=== PATIENT | male | born 1960 | race Caucasian/White ===

== ENCOUNTER 2017-03-16 12:18 | Emergency (ER) | payer MEDICAID, OTHER ==
[~2017-03-16 12:18] MED LIST: CARB25TA12 PO; CLON0.1T PO; COLA100C3 PO; CYPR4TAB PO; GABA300C5 PO; MULTTAB67 PO; OXYB5TAB10 PO; PYRI1TAB8 PO; TEMA30CA PO; ZOFR4TAB PO; [UNRECOGNIZED DRUG - CODE] PO
[2017-03-16 12:20] VITALS: BP 114/75; PULSE 85; RESP 15; TEMP 98.3; O2SAT 97
--- NOTE | 2017-03-16 12:30 | PD ---
Physical Exam Date Seen by Provider: Mar 16, 2017 Time Seen by Provider: 12:26 Narrative 57 yo male here for evaluation of low breathing and coughing. Most of history obtained from the mother and TIMBER BUCKER, he has dementia, Parkinson's, Gaucher's disease and is "slow" per but this is his usual. Per mother he was told might have pneumonia. Unclear if taking meds for it. Has had a fever on/off by palpation but not by thermometer. Coughing. Per TIMBER BUCKER shallow breathing. No chest pain. Cough is productive. Feeling weak. Patient is for the most part wheelchair bound. No sick contacts. No allergies to meds. Vitals stable at triage. Awaiting bed placement. Data Data Last Documented VS Vital Signs Date Time Temp Pulse Resp B/P (MAP) Pulse Ox O2 Delivery O2 Flow Rate FiO2 03/16/17 12:20 98.3 85 15 114/75 (88) 97 Orders Orders Electrocardiogram (03/16/17 12:30) Complete Blood Count With Diff (03/16/17 12:30) Comprehensive Metabolic Panel (03/16/17 12:30) Blood Culture (03/16/17 12:30) Influenzae A/B Antigen (03/16/17 12:30) Chest, Single Ap (03/16/17 12:30) Lactic Acid (03/16/17 12:30) MDM Medical Record Reviewed: Yes Supervised Visit with GURWINDER: Marlon Multani Mar 16, 2017 12:30
--- NOTE | 2017-03-16 13:14 | PD ---
HPI . cough x 2-3 days Chief Complaint: Respiratory Symptoms Time Seen by Provider: 12:59 Travel History International Travel<30 days: No Contact w/Intl Traveler<30days: No Traveled to known affect area: No History of Present Illness HPI 57 yr old male with Parkinson's and Gaucher's disease here with 2-3 days worth of cough. Patient's mom states that she was told that he will not survive until because he is going to come down with an infection. She became overly concerned when he started coughing 2-3 days ago and thinks he may have pneumonia. She thinks she may have had a fever. She never actually checked him with a thermometer and should she only used her hand. She reports increased phlegm production despite taking Mucinex. Patient was seen in triage and had protocol labs and CXR ordered. PFSH Past Medical History Anxiety: Yes Heart Rhythm Problems: Yes Cancer: No Cardiovascular Problems: Yes High Cholesterol: Yes Chest Pain: Yes (PT DENIES) Congestive Heart Failure: No Diminished Hearing: No Endocrine: No Gastrointestinal Disorders: Yes Hypertension: Yes Immune Disorder: No Musculoskeletal: Yes (PARKINSON'S) Neurologic: Yes (4 bulging disc and pinched nerve) Parkinson's Disease: Yes Psychiatric: Yes Reproductive: No Respiratory: No Thyroid Disease: No Past Surgical History Other Surgery: Yes Social History Alcohol Use: No Tobacco Use: No Substance Use: No Allergies-Medications (Allergen,Severity, Reaction): Coded Allergies: No Known Allergies (Unverified , 03/26/15) Reported Meds & Prescriptions Reported Meds & Active Scripts Active Reported Hydrocodone-Acetaminophen 10-325 mg Tab 1 Tab PO Q4H PRN Coconut Oil 1,000 Mg Cap Donepezil 10 Mg Tab 10 Mg PO HS Northera (Droxidopa) 200 Mg Cap PO BID Cyproheptadine (Cyproheptadine HCl) 4 Mg Tab 4 Mg PO TID Multiple Vitamin 1 Tab 1 Tab PO DAILY Clonidine (Clonidine HCl) 0.1 Mg Tab 0.1 Mg PO BID PRN Temazepam 30 Mg Cap 30 Mg PO HS PRN Pyridostigmine ER (Pyridostigmine [place]) 180 Mg Tab 180 Mg PO Q12HR Ditropan (Oxybutynin Chloride) 5 Mg Tab 5 Mg PO Q8HR Carbidopa-Levodopa 25-250 Mg Tab 1 Tab PO Q8HR Gabapentin 300 Mg Cap 300 Mg PO TID Review of Systems General / Constitutional: Positive: Fever (possible?) Eyes: No: Visual changes HENT: No: Headaches Cardiovascular: No: Chest Pain or Discomfort Respiratory: Positive: Cough, No: Shortness of Breath Gastrointestinal: No: Abdominal Pain Genitourinary: No: Dysuria Musculoskeletal: No: Pain Skin: No Rash Neurologic: No: Weakness Psychiatric: No: Depression Endocrine: No: Polydipsia Hematologic/Lymphatic: No: Easy Bruising Physical Exam Narrative GENERAL: AAO x 3, no acute distress, Well-nourished, well-developed patient. he does not appear ill SKIN: Warm and dry. No visible rashes or bruising. HEAD: Normocephalic and atraumatic. EYES: No scleral icterus. No injection or drainage. ENT: No nasal drainage noted. Mucous membranes pink. Airway patent. no oropharynx abnormality, TM normal b/l NECK: Supple, trachea midline. No JVD. CARDIOVASCULAR: Regular rate and rhythm without murmurs, gallops, or rubs. RESPIRATORY: breath sounds equally diminished bilaterally without wheezing, rhonchi or rales. GASTROINTESTINAL: Abdomen soft, non-tender, nondistended. EXTREMITIES: No cyanosis or edema. BACK: No obvious deformity. PSYCH: AAO x 3, Data Data Last Documented VS Vital Signs Date Time Temp Pulse Resp B/P (MAP) Pulse Ox O2 Delivery O2 Flow Rate FiO2 03/16/17 13:08 97 03/16/17 12:20 98.3 85 15 114/75 (88) Orders Orders Electrocardiogram (03/16/17 12:30) Complete Blood Count With Diff (03/16/17 12:30) Comprehensive Metabolic Panel (03/16/17 12:30) Blood Culture (03/16/17 12:30) Influenzae A/B Antigen (03/16/17 12:30) Lactic Acid (03/16/17 12:30) Chest, Pa & Lat (03/16/17 12:30) Labs Laboratory Tests Test 03/16/17 13:20 03/16/17 13:30 Blood Urea Nitrogen 25 MG/DL Creatinine 0.99 MG/DL Random Glucose 105 MG/DL Total Protein 8.2 GM/DL Albumin 3.8 GM/DL Calcium Level 9.4 MG/DL Alkaline Phosphatase 90 U/L Aspartate Amino Transf (AST/SGOT) 13 U/L Alanine Aminotransferase (ALT/SGPT) LESS THAN 6 U/L Total Bilirubin 0.6 MG/DL Sodium Level 141 MEQ/L Potassium Level 4.2 MEQ/L Chloride Level 105 MEQ/L Carbon Dioxide Level 31.8 MEQ/L Anion Gap 4 MEQ/L Estimat Glomerular Filtration Rate 78 ML/MIN White Blood Count 6.0 TH/MM3 Red Blood Count 5.09 MIL/MM3 Hemoglobin 15.2 GM/DL Hematocrit 44.4 % Mean Corpuscular Volume 87.2 FL Mean Corpuscular Hemoglobin 29.9 PG Mean Corpuscular Hemoglobin Concent 34.3 % Red Cell Distribution Width 13.0 % Platelet Count 155 TH/MM3 Mean Platelet Volume 10.4 FL Neutrophils (%) (Auto) 66.8 % Lymphocytes (%) (Auto) 26.0 % Monocytes (%) (Auto) 5.1 % Eosinophils (%) (Auto) 1.5 % Basophils (%) (Auto) 0.6 % Neutrophils # (Auto) 4.0 TH/MM3 Lymphocytes # (Auto) 1.6 TH/MM3 Monocytes # (Auto) 0.3 TH/MM3 Eosinophils # (Auto) 0.1 TH/MM3 Basophils # (Auto) 0.0 TH/MM3 CBC Comment DIFF FINAL Differential Comment Lactic Acid Level 1.3 mmol/L MDM Medical Decision Making Medical Screen Exam Complete: Yes Emergency Medical Condition: Yes Medical Record Reviewed: Yes Differential Diagnosis influenza, bronchitis, pneumonia Narrative Course 57 yr old male here with 2-3 days worth of cough. Labs and CXR ordered in triage. Patient looks well. I do not suspect pneumonia or any gross abnormalities. He could have viral syndrome/common cold vs. bronchitis. I have not yet heard him cough since I have seen him. Laboratory Tests Test 03/16/17 13:20 03/16/17 13:30 Blood Urea Nitrogen 25 MG/DL Creatinine 0.99 MG/DL Random Glucose 105 MG/DL Total Protein 8.2 GM/DL Albumin 3.8 GM/DL Calcium Level 9.4 MG/DL Alkaline Phosphatase 90 U/L Aspartate Amino Transf (AST/SGOT) 13 U/L Alanine Aminotransferase (ALT/SGPT) LESS THAN 6 U/L Total Bilirubin 0.6 MG/DL Sodium Level 141 MEQ/L Potassium Level 4.2 MEQ/L Chloride Level 105 MEQ/L Carbon Dioxide Level 31.8 MEQ/L Anion Gap 4 MEQ/L Estimat Glomerular Filtration Rate 78 ML/MIN White Blood Count 6.0 TH/MM3 Red Blood Count 5.09 MIL/MM3 Hemoglobin 15.2 GM/DL Hematocrit 44.4 % Mean Corpuscular Volume 87.2 FL Mean Corpuscular Hemoglobin 29.9 PG Mean Corpuscular Hemoglobin Concent 34.3 % Red Cell Distribution Width 13.0 % Platelet Count 155 TH/MM3 Mean Platelet Volume 10.4 FL Neutrophils (%) (Auto) 66.8 % Lymphocytes (%) (Auto) 26.0 % Monocytes (%) (Auto) 5.1 % Eosinophils (%) (Auto) 1.5 % Basophils (%) (Auto) 0.6 % Neutrophils # (Auto) 4.0 TH/MM3 Lymphocytes # (Auto) 1.6 TH/MM3 Monocytes # (Auto) 0.3 TH/MM3 Eosinophils # (Auto) 0.1 TH/MM3 Basophils # (Auto) 0.0 TH/MM3 CBC Comment DIFF FINAL Differential Comment Lactic Acid Level 1.3 mmol/L Last Impressions Chest X-Ray 03/16/17 1230 Signed Impressions: Service Date/Time: Thursday, March 16, 2017 12:56 - CONCLUSION: 1. No acute abnormality or significant interval change. Jimmie Mendoza MD BUN slightly high. Encouraged staying hydrated. Discussed f/u with PCP. Discussed viral syndrome and common cold. Patient verbalized understanding of instructions, questions were answered, and thanked me for their care. I advised them if their condition worsens, please return to the nearest emergency room for further care. Diagnosis Primary Impression: Cough Patient Instructions: General Instructions Additional Instructions: Rest. Stay hydrated. Follow up with your primary care provider. Return if your symptoms worsen. Disposition: 01 DISCHARGE HOME Condition: Stable Fouzia Abarca Mar 16, 2017 13:13
[2017-03-16] MEDS ORDERED: COCO1000 (13:18)
[2017-03-16] MEDS ORDERED: DONE10TA7 PO (13:18)
[2017-03-16] MEDS ORDERED: HYDR-3583 PO (13:18)
[2017-03-16 13:58] LABS: BASOPHIL % 0.6 % (0.0-2.0); EOSINOPHIL # 0.1 TH/MM3 (0-0.4); EOSINOPHIL % 1.5 % (0.0-4.0); HEMATOCRIT 44.4 % (39.0-51.0); HEMO FLAGS DIFF FINAL; LYMPHOCYTE # 1.6 TH/MM3 (1.0-4.8); MEAN CELL VOLUME 87.2 FL (80.0-100.0); MEAN CORPUSCULAR HEMOGLOBIN 29.9 PG (27.0-34.0); MEAN CORPUSCULAR HGB CONC 34.3 % (32.0-36.0); MONO % 5.1 % (0.0-8.0); NEUT % 66.8 % (16.0-70.0); PLATELET COUNT 155 TH/MM3 (150-450); RED BLOOD COUNT 5.09 MIL/MM3 (4.50-5.90)
--- NOTE | 2017-03-16 14:15 | RADRPT ---
EXAM DATE/TIME: 03/16/2017 12:56 [facility] COMPARISON: CHEST PA & LAT, December 01, 2013, 18:06. INDICATIONS : Cough MEDICAL HISTORY : Parkinson's disease, dysphagia, dementia SURGICAL HISTORY : None. ENCOUNTER: Initial ACUITY: 1 week PAIN SCORE: Non-responsive. LOCATION: Bilateral chest FINDINGS: PA and lateral views of the chest demonstrate the lungs to be symmetrically aerated without evidence of mass, infiltrate or effusion. Stable small calcified granulomas in the right lung. The cardiomedia stinal contours are unremarkable. Osseous structures are intact. CONCLUSION: 1. No acute abnormality or significant interval change. Jimmie Mendoza MD on March 16, 2017 at 14:11 Board Certified Radiologist. This report was verified electronically.
[2017-03-16 14:21] LABS: ANION GAP 4 MEQ/L (5-15); AST (GOT) 13 U/L (15-37); BICARBONATE 31.8 MEQ/L (21.0-32.0); BLOOD UREA NITROGEN 25 MG/DL (7-18); CHLORIDE 105 MEQ/L (98-107); GLOMERULAR FILTRATION RATE 78 ML/MIN (>89); POTASSIUM 4.2 MEQ/L (3.5-5.1); SODIUM (NA) 141 MEQ/L (136-145)
[2017-03-16 14:24] LABS: ALKALINE PHOSPHATASE 90 U/L (45-117); ALT (GPT) LESS THAN 6 U/L (12-78); TOTAL BILIRUBIN ADULT 0.6 MG/DL (0.2-1.0)
[2017-03-16 15:13] VITALS: BP 142/68; PULSE 69; RESP 16; O2SAT 96
--- NOTE | 2017-03-17 11:51 | EKG ---
Date Performed: 03/16/2017 Time Performed: 13:30:04 PTAGE: 57 years EKG: Sinus rhythm Mild baseline artifact with possible slight nonspecific ST changes NORMAL ECG PREVIOUS TRACING : 09/20/2014 06.01 No overt change from the prior tracing. DOCTOR: Chong Lewis Interpretating Date/Time 03/17/2017 11:49:59
== END 2017-03-16 15:36 | disposition home or self-care (01) ==
LOC: NEPD 12:18
DX: R05 Cough (principal); I10 Essential (primary) hypertension; G20 Parkinson's disease
CPT/HCPCS: 71020; 80053; 83605; 85025; 87804; 93005; 99285

== ENCOUNTER 2017-03-26 10:47 | Emergency (ER) | payer MEDICAID ==
[~2017-03-26] VITALS: Ht 175.3 cm; Wt 60.0 kg
[~2017-03-26 10:47] MED LIST changes: +COCO1000; -COLA100C3 PO; +DONE10TA7 PO; +HYDR-3583 PO; -ZOFR4TAB PO
[2017-03-26 10:56] VITALS: BP 163/100; PULSE 91; RESP 17; TEMP 98.6
[2017-03-26 11:32] VITALS: BP 167/103; PULSE 93; RESP 17; O2SAT 98
--- NOTE | 2017-03-26 11:33 | PD ---
HPI Chief Complaint: Abnormal Results Time Seen by Provider: 11:13 Travel History International Travel<30 days: No Contact w/Intl Traveler<30days: No Traveled to known affect area: No History of Present Illness HPI 57 year old male with a PMH of Parkinson's disease and Gaucher's disease presents to the emergency department sent by primary care's physician's office for evaluation of hypotension. According to the mother bedside, the patient's blood pressure at the primary care physician's office was 70/40. EMS was called. Since EMS arrived, blood pressure has been anywhere from 130 to 160 systolic. He has not had any hypotensive readings since EMS arrived. His mother is his caregiver. She states that he is at his baseline. He was seen here on March 16, 2017 for evaluation of a cough, possible pneumonia. Lab work and chest x-ray that time her reassuring. The patient himself denies any new complaints. No headache. No chest pain or shortness breath. No abdominal pain. No nausea, from being, diarrhea. His mother and the patient both state that he is at his baseline at this time. Blood pressure arrival to the emergency department is 163/100. PFSH Past Medical History Anxiety: Yes Heart Rhythm Problems: Yes (DENIES) Cancer: No Cardiovascular Problems: Yes High Cholesterol: Yes Chest Pain: Yes (PT DENIES) Congestive Heart Failure: No Diminished Hearing: No Endocrine: No Gastrointestinal Disorders: Yes Hypertension: Yes Immune Disorder: No Medical other: Yes (GAUNCHERS DX) Musculoskeletal: Yes (PARKINSON'S) Neurologic: Yes (4 bulging disc and pinched nerve) Parkinson's Disease: Yes Psychiatric: Yes Reproductive: No Respiratory: No Thyroid Disease: No Influenza Vaccination: No Past Surgical History Other Surgery: Yes Social History Alcohol Use: No Tobacco Use: No Substance Use: No Allergies-Medications (Allergen,Severity, Reaction): Coded Allergies: No Known Allergies (Unverified , 03/26/15) Reported Meds & Prescriptions Reported Meds & Active Scripts Active Reported Hydrocodone-Acetaminophen 10-325 mg Tab 1 Tab PO Q4H PRN Coconut Oil 1,000 Mg Cap Donepezil 10 Mg Tab 10 Mg PO HS Northera (Droxidopa) 200 Mg Cap PO BID Cyproheptadine (Cyproheptadine HCl) 4 Mg Tab 4 Mg PO TID Multiple Vitamin 1 Tab 1 Tab PO DAILY Clonidine (Clonidine HCl) 0.1 Mg Tab 0.1 Mg PO BID PRN Temazepam 30 Mg Cap 30 Mg PO HS PRN Pyridostigmine ER (Pyridostigmine [place]) 180 Mg Tab 180 Mg PO Q12HR Ditropan (Oxybutynin Chloride) 5 Mg Tab 5 Mg PO Q8HR Carbidopa-Levodopa 25-250 Mg Tab 1 Tab PO Q8HR Gabapentin 300 Mg Cap 300 Mg PO TID Review of Systems Except as stated in HPI: all other systems reviewed are Neg Physical Exam Narrative GENERAL: Well-nourished, well-developed male patient, afebrile. SKIN: Focused skin assessment warm/dry. HEAD: Normocephalic. Atraumatic. ENT: Mucosa pink and moist. No erythema or exudates. No uvular edema. No uvular , palatal, or tonsillar deviation. Airway patent. Nasal turbinates appear normal without nasal blood, purulent drainage or septal hematoma. Bilateral tympanic membranes are clear without erythema or perforation. EYES: No scleral icterus. No injection or drainage. NECK: Supple, trachea midline. No JVD or lymphadenopathy. CARDIOVASCULAR: Regular rate and rhythm without murmurs, gallops, or rubs. RESPIRATORY: Breath sounds equal bilaterally. No accessory muscle use. Lungs sounds are clear to auscultation. GASTROINTESTINAL: Abdomen soft, non-tender, nondistended. MUSCULOSKELETAL: No cyanosis, or edema. BACK: Nontender without obvious deformity. No CVA tenderness. Data Data Last Documented VS Vital Signs Date Time Temp Pulse Resp B/P (MAP) Pulse Ox O2 Delivery O2 Flow Rate FiO2 03/26/17 11:32 93 17 167/103 (124) 98 Room Air 03/26/17 10:56 98.6 Orders Orders Chest, Single Ap (03/26/17 ) [facility] Medical Decision Making Medical Screen Exam Complete: Yes Emergency Medical Condition: Yes Medical Record Reviewed: Yes Interpretation(s) Last Impressions Chest X-Ray 03/26/17 0000 Signed Impressions: Service Date/Time: , March 26, 2017 11:45 - CONCLUSION: No acute disease. There is no evidence of pneumonia. Musa Ellington MD Differential Diagnosis Medical clearance versus hypotension versus hypertension versus pneumonia versus cough Narrative Course 57-year-old male presents to the emergency department sent by primary care physician's office for evaluation of hypotension. Since EMS arrived and since being in the emergency department, the patient has not been hypotensive. His mother and him both state he has at baseline. His mother does complain of a cough, that is worse at night. I have not heard the patient cough at this time. Patient did reassuring workup in March 16, 2017. Chest x-ray is ordered and pending. Chest x-ray shows no acute disease. There is no evidence of pneumonia. Upon reevaluation, blood pressure is 140/103. The patient continues to feel well and has no complaints. I discussed the case with attending physician, Dr. Senior, who presents complaining and disposition. Patient will be discharged to follow-up with his primary care physician. He is to return here for any acute worsening of symptoms. The patient and his mother verbalize agreement and understanding. The patient was discharged in stable condition with instructions, including return instructions and follow up instructions. Diagnosis Primary Impression: Cough Referrals: Primary Care Physician 2 days Patient Instructions: Acute Cough (ED), General Instructions Additional Instructions: Follow-up with your primary care physician. Return to the emergency department for any acute worsening of symptoms. Med/Other Pt SpecificInfo: No Change to Meds Disposition: 01 DISCHARGE HOME Condition: Stable Glory Oquendo EUNICE Mar 26, 2017 11:30
--- NOTE | 2017-03-26 11:55 | RADRPT ---
EXAM DATE/TIME: 03/26/2017 11:45 [facility] COMPARISON: CHEST PA & LAT, December 01, 2013, 18:06. INDICATIONS : Cough. MEDICAL HISTORY : Parkinson's, Gauches disease SURGICAL HISTORY : None. ENCOUNTER: Initial ACUITY: 1 day PAIN SCORE: Non-responsive. LOCATION: Bilateral chest FINDINGS: A single view of the chest demonstrates the lungs to be symmetrically aerated without evidence of mas s, infiltrate or effusion. There calcified granulomas in the right lung. The cardiomediastinal contou rs are unremarkable. Osseous structures are intact. CONCLUSION: No acute disease. There is no evidence of pneumonia. Musa Ellington MD on March 26, 2017 at 11:49 Board Certified Radiologist. This report was verified electronically.
[2017-03-26 12:14] VITALS: BP 140/99
== END 2017-03-26 13:15 | disposition home or self-care (01) ==
LOC: NEPC 10:47
DX: R05 Cough (principal); G20 Parkinson's disease; E75.22 Gaucher disease
CPT/HCPCS: 71010; 99283

== ENCOUNTER 2018-04-07 16:45 | Observation (INO) ==
--- NOTE | 2018-04-07 17:49 | ED ---
HPI General Chief complaint: Nausea/Vomiting/Diarrhea Stated complaint: Diarreha x 4 days,dehydration per pt, Time Seen by Provider: 04/07/18 17:22 Source: patient Limitations: physical limitation History of Present Illness HPI Narrative: Patient is a 58-year-old male with history of Parkinson's disease , dementia, bulging disc, presents the emergency room for evaluation of dehydration. As per patient's mother/ caregiver, patient has been having diarrhea for the past 4 days. Mom reports that overall, patient has had decreased appetite. Reports concerns that he is dehydrated and needs IV fluids. At baseline, patient is nonverbal with his dementia. Mom reports that he does feel warm at nighttime, no documented fevers. Patient with no nausea or vomiting, no sick contacts at home. MD complaint: Reports nausea, vomiting and diarrhea Onset (ago): day(s) (4 days) Related Data Home Medications Medication Instructions Recorded Confirmed aspirin [Aspir-Low] 81 mg PO DAILY 01/29/18 04/07/18 donepezil [Aricept] 10 mg PO HS 01/29/18 04/07/18 oxybutynin chloride 5 mg PO TID 01/29/18 04/07/18 temazepam [Restoril] 30 mg PO HS 01/29/18 04/07/18 carbidopa-levodopa [Sinemet] 1 tab PO QID 02/02/18 04/07/18 gabapentin 300 mg PO BID 02/02/18 04/07/18 gabapentin 600 mg PO HS 02/02/18 04/07/18 pyridostigmine bromide 180 mg PO BID 02/02/18 04/07/18 Allergies Allergy/AdvReac Type Severity Reaction Status Date / Time No Known Allergies Allergy Verified 04/07/18 17:00 Review of Systems ROS: all other systems reviewed are negative [facility] Medical History Medical History Degenerative disc disease (Acute) Dementia (Acute) Parkinsonism (Acute) Surgical History Surgical History No history of previous surgery (Acute) Family History Family History Other Coronary artery disease Diabetes mellitus Social History Social History Substance History: No History of Abuse Second Hand Smoke Exposure: No Smoking Status: Former smoker Tobacco Type: Cigarettes How Often Do You Have a Drink Containing Alcohol: Never Recent Travel in [facility] within the Last 8 Weeks: No Recent Out of Country Travel within the Last 8 Weeks: No Immunization History Tetanus Immunization: Unsure Exam Narrative Exam Narrative: GENERAL: Mild distress, patient nonverbal SKIN: Focused skin assessment warm/dry. HEAD: Atraumatic. Normocephalic. EYES: Pupils equal and round. No scleral icterus. No injection or drainage. ENT: No nasal bleeding or discharge. Mucous membranes pink and moist. NECK: Trachea midline. No JVD. CARDIOVASCULAR: Regular rate and rhythm. No murmur appreciated. RESPIRATORY: No accessory muscle use. Clear to auscultation. Breath sounds equal bilaterally. GASTROINTESTINAL: Abdomen soft, non-tender, nondistended. Hepatic and splenic margins not palpable. MUSCULOSKELETAL: No obvious deformities. No clubbing. No cyanosis. No edema. Course Consultations Consultation #1: discussed with and accepted by Dr Martinez for admission Initial Documented Vital Signs Temperature 98.8 F 04/07/18 16:52 Pulse Rate 91 H 04/07/18 16:52 Respiratory Rate 18 04/07/18 16:52 Blood Pressure 71/48 L 04/07/18 16:52 Pulse Oximetry 91 L 04/07/18 16:52 Last Documented Vital Signs Temperature 98.8 F 04/07/18 16:52 Pulse Rate 86 04/07/18 19:24 Respiratory Rate 18 04/07/18 16:52 Blood Pressure 148/90 H 04/07/18 19:24 Pulse Oximetry 98 04/07/18 19:24 Sign Out Sign Out Data: Patient Sign Out occurred on 04/07/18 at 19:18. Patient's care was discussed, and care was transferred from Araceli Marie to Eufemia Banks MD. Sign Out Comment: Patient signed out at change of shift, patient pending lab work as well as disposition. I do anticipate the patient will be admitted to the hospital for treatment of pneumonia Last updated by Araceli Marie at 04/07/18 19:00 Post-Handoff Eval: Accepted in transfer of care from Dr. Marie Medical Decision Making [facility] Narrative Medical decision making narrative: During the course of the patients emergency department visit, the patients history, examination, and differential diagnosis were reviewed with the patient. The patient was placed on a hospital monitor with oximetry and frequent blood pressure monitoring. The patient had an IV access obtained and blood work sent for analysis. The patient was initially provided with 2 liters of IVF as well as IV zofran CT the abdomen pelvis shows that he has a right lower lobe pneumonia, patient has been pancultured, he has been given a dose of azithromycin as well as Rocephin. lactic acid as well as blood cultures were ordered- [facility] reports that patient has been coughing discussed with and accepted by Dr Martinez for admission Medical Screen Exam Complete: Yes Emergency Medical Condition: Yes Differential Diagnosis Differential Diagnosis: Colitis, C. difficile colitis, electrolyte abnormality, appendicitis, diverticulitis, gastritis, gastroenteritis Medical Records Medical records reviewed: Yes I reviewed the patient's medical records. Lab Data Lab results reviewed: Yes I reviewed the patient's lab results. Result diagrams: 04/07/18 17:30 04/07/18 17:30 Lab Results 04/07/18 04/07/18 04/07/18 Range/Units 17:30 17:30 17:30 WBC 6.5 (4.0-11.0) th/mm3 RBC 4.56 (4.50-5.90) mil/mm3 Hgb 13.1 (13.0-17.0) gm/dL Hct 39.8 (39.0-51.0) % MCV 87.3 (80.0-100.0) fL MCH 28.8 (27.0-34.0) pg MCHC 33.0 (32.0-36.0) % RDW 14.1 (11.6-17.2) % Plt Count 132 L (150-450) th/mm3 MPV 12.1 H (7.0-11.0) fL Neut % (Auto) 70.1 H (16.0-70.0) % Lymph % (Auto) 21.8 (9.0-44.0) % [place] % (Auto) 6.9 (0.0-8.0) % Eos % (Auto) 0.8 (0.0-4.0) % Baso % (Auto) 0.4 (0.0-2.0) % Neut # (Auto) 4.6 (1.8-7.7) th/mm3 Lymph # (Auto) 1.4 (1.0-4.8) th/mm3 [place] # (Auto) 0.5 (0.0-0.9) th/mm3 Eos # (Auto) 0.1 (0.0-0.4) th/mm3 Baso # (Auto) 0.0 (0.0-0.2) th/mm3 WBC Differential . Differential Comment Auto diff final PT 10.9 (9.8-11.6) sec INR 1.1 Ratio APTT 27.4 (24.3-30.1) sec Sodium 141 (136-145) meq/L Potassium 3.3 L (3.5-5.1) meq/L Chloride 108 H (98-107) meq/L Carbon Dioxide 27.7 (21.0-32.0) meq/L Anion Gap 5 (5-15) meq/L BUN 25 H (7-18) mg/dL Creatinine 0.83 (0.60-1.30) mg/dL Estimated GFR Greater than 89 (>89) mL/min Random Glucose 103 (74-106) mg/dL Lactic Acid (0.4-2.0) mmol/L Calcium 8.8 (8.5-10.1) mg/dL Total Bilirubin 1.0 (0.2-1.0) mg/dL AST 18 (15-37) U/L ALT 10 L (12-78) U/L Alkaline Phosphatase 86 (45-117) U/L Total Creatine Kinase 61 (39-308) U/L Total Protein 7.8 (6.4-8.2) g/dL Albumin 3.5 (3.4-5.0) g/dL Stl C.difficile DNA Amp (Negative) St C. diff Tox Epid 027 (Negative) 04/07/18 04/07/18 Range/Units 19:00 20:42 WBC (4.0-11.0) th/mm3 RBC (4.50-5.90) mil/mm3 Hgb (13.0-17.0) gm/dL Hct (39.0-51.0) % MCV (80.0-100.0) fL MCH (27.0-34.0) pg MCHC (32.0-36.0) % RDW (11.6-17.2) % Plt Count (150-450) th/mm3 MPV (7.0-11.0) fL Neut % (Auto) (16.0-70.0) % Lymph % (Auto) (9.0-44.0) % [place] % (Auto) (0.0-8.0) % Eos % (Auto) (0.0-4.0) % Baso % (Auto) (0.0-2.0) % Neut # (Auto) (1.8-7.7) th/mm3 Lymph # (Auto) (1.0-4.8) th/mm3 [place] # (Auto) (0.0-0.9) th/mm3 Eos # (Auto) (0.0-0.4) th/mm3 Baso # (Auto) (0.0-0.2) th/mm3 WBC Differential Differential Comment PT (9.8-11.6) sec INR Ratio APTT (24.3-30.1) sec Sodium (136-145) meq/L Potassium (3.5-5.1) meq/L Chloride (98-107) meq/L Carbon Dioxide (21.0-32.0) meq/L Anion Gap (5-15) meq/L BUN (7-18) mg/dL Creatinine (0.60-1.30) mg/dL Estimated GFR (>89) mL/min Random Glucose (74-106) mg/dL Lactic Acid 1.1 (0.4-2.0) mmol/L Calcium (8.5-10.1) mg/dL Total Bilirubin (0.2-1.0) mg/dL AST (15-37) U/L ALT (12-78) U/L Alkaline Phosphatase (45-117) U/L Total Creatine Kinase (39-308) U/L Total Protein (6.4-8.2) g/dL Albumin (3.4-5.0) g/dL Stl C.difficile DNA Amp Negative (Negative) St C. diff Tox Epid 027 Negative (Negative) Imaging Data Radiologist's impression: Abdomen/Pelvis CT 04/07/18 17:44 CONCLUSION: 1. Mild basilar groundglass opacity and early consolidative infiltrate at the right lung base. 2. Severe constipation. No acute findings within the abdomen and pelvis. Chest X-Ray 04/07/18 18:46 CONCLUSION: Negative examination. Discharge Plan Discharge Disposition Patient Disposition: 30 Still Patient Discharge Condition Condition: Stable Discharge Details Diagnosis: Pneumonia, Constipation Physicians Team ED Provider: Eufemia Banks Primary Care Provider: UNKNOWN, Attending Provider: Araceli Martinez Discharge Interventions Interventions: Vital Signs Last Done: 04/07/18 19:24 Status ED Status: Admitted Observation Patient
[2018-04-07] MEDS: Sod Chloride 0.9% Inj 1,000 ML IV.SIG SCH ×2 (18:05→19:34)
--- NOTE | 2018-04-07 18:38 | CT ---
EXAM DATE: 04/07/2018 5:48 PM EDT AGE/SEX: 58 years / Male INDICATIONS: Diarrhea with decubitus for four days CLINICAL DATA: This is the patient's initial encounter. Patient reports that signs and symptoms have been present for 4 - 6 days and indicates a pain score of Nonresponsive. MEDICAL/SURGICAL HISTORY: Dementia. Parkinson's disease. None. RADIATION DOSE: 6.24 CTDI (mGy) COMPARISON: [facility] [place]ELVIS [place]AST, 12/09/2011. . TECHNIQUE: Multiple contiguous axial images were obtained through the abdomen. Images were obtained using multiple row detector helical technique. Using automated exposure control and adjustment of the mA and/or kV according to patient size, radiation dose was kept as low as reasonably achievable to o btain optimal diagnostic quality images. DICOM format image data is available electronically for rev iew and comparison. FINDINGS: Lung bases demonstrate suspected subsegmental atelectasis with mild groundglass and early consolidati ve infiltrate at the right lung base. Calcified granuloma right middle lobe. No acute findings in the liver, spleen, adrenals, kidneys or pancreas. No calcified gallstones. Sever e constipation with rectum distended to 9 cm in diameter. No free air or free fluid. No bowel obstruction. No acute bony abnormalities. Mild canal stenosis in the lower lumbar spine. CONCLUSION: 1. Mild basilar groundglass opacity and early consolidative infiltrate at the right lung base. 2. Severe constipation. No acute findings within the abdomen and pelvis. Electronically signed by: Jose D Zhang MD 04/07/2018 6:37 PM EDT
[2018-04-07 18:48] LABS: Baso % (Auto) 0.4 % (0.0-2.0); Eos # (Auto) 0.1 th/mm3 (0.0-0.4); Eos % (Auto) 0.8 % (0.0-4.0); Hematocrit 39.8 % (39.0-51.0); Hemoglobin 13.1 gm/dL (13.0-17.0); Lymph # (Auto) 1.4 th/mm3 (1.0-4.8); Lymph % (Auto) 21.8 % (9.0-44.0); Mean Corpuscular Hemoglobin 28.8 pg (27.0-34.0); Mean Corpuscular Volume 87.3 fL (80.0-100.0); Mean Platelet Volume 12.1 fL (7.0-11.0); Mono # (Auto) 0.5 th/mm3 (0.0-0.9); Mono % (Auto) 6.9 % (0.0-8.0); Neut # (Auto) 4.6 th/mm3 (1.8-7.7); Neut % (Auto) 70.1 % (16.0-70.0); Platelet Count 132 th/mm3 (150-450); Red Blood Count 4.56 mil/mm3 (4.50-5.90); Red Cell Distribution Width 14.1 % (11.6-17.2); White Blood Count 6.5 th/mm3 (4.0-11.0)
[2018-04-07 18:55] LABS: Activated Partial Thrombo Time 27.4 sec (24.3-30.1); INR 1.1 Ratio; Prothrombin Time 10.9 sec (9.8-11.6)
[2018-04-07] MEDS ORDERED: Azithromycin Inj 500 MG in Sodium Chlor 0.9% Inj 250 ML IV.SIG ONE (18:57)
[2018-04-07 19:03] LABS: Albumin 3.5 g/dL (3.4-5.0); Anion Gap 5 meq/L (5-15); Aspartate Aminotransferase 18 U/L (15-37); Blood Urea Nitrogen 25 mg/dL (7-18); Calcium 8.8 mg/dL (8.5-10.1); Carbon Dioxide 27.7 meq/L (21.0-32.0); Chloride 108 meq/L (98-107); Glomerular Filtration Rate Greater Than 89 mL/min (>89); Glucose,Random 103 mg/dL (74-106); Potassium 3.3 meq/L (3.5-5.1); Sodium 141 meq/L (136-145)
[2018-04-07 19:04] LABS: Alanine Aminotransferase 10 U/L (12-78)
[2018-04-07 19:07] LABS: Alkaline Phosphatase 86 U/L (45-117); Total Protein 7.8 g/dL (6.4-8.2)
[2018-04-07 19:15] LABS: Creatine Kinase 61 U/L (39-308)
--- NOTE | 2018-04-07 19:30 | XR ---
EXAM DATE: 04/07/2018 6:46 PM EDT AGE/SEX: 58 years / Male INDICATIONS: Cough and shortness of breath. CLINICAL DATA: This is the patient's initial encounter. Patient reports that signs and symptoms have been present for 2 days and indicates a pain score of Nonresponsive. MEDICAL/SURGICAL HISTORY: . Parkinson's disease, Dysphagia, dementia. None. COMPAR[place]: [facility] [place] 2[place] PA&LAT[place]/2018. . FINDINGS: A single AP view of the chest demonstrates the lungs to be symmetrically aerated without evidence of mass, infiltrate or effusion. The cardiomediastinal contours are unremarkable. Osseous structures a re intact. Calcified granuloma right lung base. CONCLUSION: Negative examination. Electronically signed by: Judah Carmona MD 04/07/2018 7:29 PM EDT
[2018-04-07] MEDS ORDERED: Mineral Oil Enema 118 ML Bottle RECTAL ONE (21:45)
[2018-04-07] MEDS ORDERED: Acetaminophen 325 MG Tablet PO PRN (21:47)
[2018-04-07] MEDS ORDERED: Bisacodyl 10 MG Supp RECTAL PRN (21:47)
--- NOTE | 2018-04-07 21:58 | P.HP ---
History of Present Illness Service: [facility] Primary Care Physician: UNKNOWN History of Present Illness: 58-year-old male with a past medical history significant for Parkinson's disease , dementia and neuropathy presents to the emergency department for the evaluation of 4 days of diarrhea. His mother and his caregiver are bedside and report that he started to have rectal skin breakdown secondary to the diarrhea. CT of the abdomen/pelvis reveals severe constipation. The patient has also had a nonproductive cough times [address] He is also had subjective fever/chills. No chest pain or shortness of breath. No abdominal pain. No nausea/vomiting. No lateralizing signs/symptoms. Inpatient Certification: I certify that the inpatient services were ordered in accordance with Medicare regulations governing the order. This includes certification that hospital inpatient services are reasonable and necessary and in the case of services not specified as inpatient-only under 42 CFR 419.22(n), that they are appropriately provided as inpatient services in accordance to with the 2-midnight benchmark under 43 CFR 412.3(e) Review of Systems All other systems reviewed negative except as stated in HPI PMFSH - History History Provided By: Patient - Medical History Medical History: Medical History (Last Reviewed 04/07/18 @ 21:51 by Araceli Martinez MD) Degenerative disc disease Dementia Parkinsonism - Surgical History Surgical History: Surgical History (Last Updated 04/07/18 @ 21:51 by Araceli Martinez MD) No history of previous surgery - Family History Family History: Family History (Last Updated 04/07/18 @ 21:52 by Araceli Martinez MD) Other Coronary artery disease Diabetes mellitus - Tobacco History Second Hand Smoke Exposure: No Tobacco Use In Past 30 Days: No Smoking Status: Former smoker Tobacco Type: Cigarettes - Alcohol History How Often Do You Have a Drink Containing Alcohol: Never - Substance Use History Substance History: No History of Abuse - Travel History Recent Travel in the [place] Within the Last 8 Weeks: No Recent Travel Out of the Country Within the Last 8 Weeks: No - Immunization History Tetanus Immunization: Unsure Medications and Allergies Active Medications: Active Medications Sodium Chloride (Ns Inj) 1,000 mls @ 0 mls/hr IV.SIG BOLUS GEORGE Stop: 04/08/18 17:31 Last Infusion: 04/07/18 20:45 Dose: Infused Sodium Chloride (Ns Flush) 2 ml IV.FLUSH PRN PRN PRN Reason: FLUSH AFTER USING IV ACCESS Last Admin: 04/07/18 20:52 Dose: 2 ml Allergies Allergy/AdvReac Type Severity Reaction Status Date / Time No Known Allergies Allergy Verified 04/07/18 17:00 Home Medications Medication Instructions Recorded Confirmed Type aspirin [Aspir-Low] 81 mg PO DAILY 01/29/18 04/07/18 History donepezil [Aricept] 10 mg PO HS 01/29/18 04/07/18 History oxybutynin chloride 5 mg PO TID 01/29/18 04/07/18 History temazepam [Restoril] 30 mg PO HS 01/29/18 04/07/18 History carbidopa-levodopa [Sinemet] 1 tab PO QID 02/02/18 04/07/18 History gabapentin 300 mg PO BID 02/02/18 04/07/18 History gabapentin 600 mg PO HS 02/02/18 04/07/18 History pyridostigmine bromide 180 mg PO BID 02/02/18 04/07/18 History Exam Vital signs: Vital Signs 04/07/18 16:52 04/07/18 17:07 04/07/18 19:23 Temperature 98.8 F Pulse Rate 91 H 86 Respiratory Rate 18 Blood Pressure 71/48 L 121/80 Pulse Oximetry 91 L 04/07/18 19:24 Temperature Pulse Rate 86 Respiratory Rate Blood Pressure 148/90 H Pulse Oximetry 98 Intake & Output 04/07/18 04/07/18 04/08/18 06:59 18:59 06:59 Intake Total 2099 Balance 2099 Weight 56.699 kg Intake: IV 2099 NS Inj 1,000 ML @ Wide Open IV. 1999 SIG BOLUS GEORGE Rx#:[id number] Rocephin Inj 1,000 MG In NS Inj 100 / 100 100 ML @ 200 mls/hr IV.SIG ONCE ONE Rx#:[id number] Narrative: Gen.: No acute distress Head: Normocephalic. Atraumatic. EENT: Pupils equal round and reactive to light. Nose without drainage. Airway intact. Throat without injection. Cardiovascular: Regular rate and rhythm. No murmurs, rubs or gallops. Respiratory: Lungs clear to auscultation bilaterally. No wheezes or rhonchi. Abdomen: Soft, nontender, nondistended. No peritoneal signs. Musculoskeletal: No gross deformities. No edema. Skin: No obvious rashes or erythema. Neuro: Sensory and motor grossly intact. Cranial nerves II through XII grossly intact. Results - Labs CBC & Chem 7: 04/07/18 17:30 04/07/18 17:30 Labs: Laboratory Results - last 24 hr 04/07/18 04/07/18 04/07/18 17:30 17:30 17:30 WBC 6.5 RBC 4.56 Hgb 13.1 Hct 39.8 MCV 87.3 MCH 28.8 MCHC 33.0 RDW 14.1 Plt Count 132 L MPV 12.1 H Neut % (Auto) 70.1 H Lymph % (Auto) 21.8 [place] % (Auto) 6.9 Eos % (Auto) 0.8 Baso % (Auto) 0.4 Neut # (Auto) 4.6 Lymph # (Auto) 1.4 [place] # (Auto) 0.5 Eos # (Auto) 0.1 Baso # (Auto) 0.0 WBC Differential . Differential Comment Auto diff final PT 10.9 INR 1.1 APTT 27.4 Sodium 141 Potassium 3.3 L Chloride 108 H Carbon Dioxide 27.7 Anion Gap 5 BUN 25 H Creatinine 0.83 Estimated GFR Greater than 89 Random Glucose 103 Lactic Acid Calcium 8.8 Total Bilirubin 1.0 AST 18 ALT 10 L Alkaline Phosphatase 86 Total Creatine Kinase 61 Total Protein 7.8 Albumin 3.5 04/07/18 19:00 WBC RBC Hgb Hct MCV MCH MCHC RDW Plt Count MPV Neut % (Auto) Lymph % (Auto) [place] % (Auto) Eos % (Auto) Baso % (Auto) Neut # (Auto) Lymph # (Auto) [place] # (Auto) Eos # (Auto) Baso # (Auto) WBC Differential Differential Comment PT INR APTT Sodium Potassium Chloride Carbon Dioxide Anion Gap BUN Creatinine Estimated GFR Random Glucose Lactic Acid 1.1 Calcium Total Bilirubin AST ALT Alkaline Phosphatase Total Creatine Kinase Total Protein Albumin - Imaging Impressions Abdomen/Pelvis CT 04/07/18 17:44 CONCLUSION: 1. Mild basilar groundglass opacity and early consolidative infiltrate at the right lung base. 2. Severe constipation. No acute findings within the abdomen and pelvis. Chest X-Ray 04/07/18 18:46 CONCLUSION: Negative examination. Caprini VTE Risk Assessment Caprini VTE Risk Assessment: No/Low Risk (score <= 1) Caprini Risk Assessment Model: Point Value = 1 Point Value = 2 Point Value = 3 Point Value = 5 Age 41-60 Minor surgery BMI > 25 kg/m2 Swollen legs Varicose veins or History of unexplained or recurrent spontaneous Oral contraceptives or hormone replacement Sepsis (< 1 month) Serious lung disease, including pneumonia (< 1 month) Abnormal pulmonary function Acute myocardial infarction Congestive heart failure (< 1 month) History of inflammatory bowel disease Medical patient at bed rest Age 61-74 Arthroscopic surgery Major open surgery (> 45 min) Laparoscopic surgery (> 45 min) Malignancy Confined to bed (> 72 hours) Immobilizing plaster cast Central venous access Age >= 75 History of VTE Family history of VTE Factor V Leiden Prothrombin [id number] Lupus anticoagulant Anticardiolipin antibodies Elevated serum homocysteine Heparin-induced thrombocytopenia Other congenital or acquired thrombophilia Stroke (< 1 month) Elective arthroplasty Hip, pelvis, or leg fracture Acute spinal cord injury (< 1 month) Prophylaxis Regimen: Total Risk Factor Score Risk Level Prophylaxis Regimen 0-1 Low Early ambulation 2 Moderate Order ONE of the following: *Sequential Compression Device (SCD) *Heparin 5000 units SQ BID 3-4 Higher Order ONE of the following medications: *Heparin 5000 units SQ TID *Enoxaparin/Lovenox 40 mg SQ daily (WT < 150 kg, CrCl > 30 mL/min) *Enoxaparin/Lovenox 30 mg SQ daily (WT < 150 kg, CrCl > 10-29 mL/min) *Enoxaparin/Lovenox 30 mg SQ BID (WT < 150 kg, CrCl > 30 mL/min) AND/OR *Sequential Compression Device (SCD) 5 or more Highest Order ONE of the following medications: *Heparin 5000 units SQ TID (Preferred with Epidurals) *Enoxaparin/Lovenox 40 mg SQ daily (WT < 150 kg, CrCl > 30 mL/min) *Enoxaparin/Lovenox 30 mg SQ daily (WT < 150 kg, CrCl > 10-29 mL/min) *Enoxaparin/Lovenox 30 mg SQ BID (WT < 150 kg, CrCl > 30 mL/min) AND *Sequential Compression Device (SCD) Assessment and Plan - Plan Assessment/plan: 1. Community-acquired pneumonia CT of the abdomen/pelvis significant for significant for mild basilar groundglass opacity and early consolidative infiltrate in the right lung base Rocephin/azithromycin Duo nebs 2. Severe constipation Fleets mineral oil enema x1 Dulcolax, lactulose as needed 3. Parkinson's disease Continue carbidopa/levodopa 4. Neuropathy Continue gabapentin FEN Regular diet Electrolytes: Status post p.o. repletion of potassium, monitor BMP
[2018-04-08 09:01] LABS: Baso % (Auto) 0.4 % (0.0-2.0); Eos % (Auto) 0.4 % (0.0-4.0); Hematocrit 39.7 % (39.0-51.0); Hemoglobin 13.5 gm/dL (13.0-17.0); Lymph # (Auto) 0.8 th/mm3 (1.0-4.8); Lymph % (Auto) 13.8 % (9.0-44.0); Mean Corpuscular HGB Conc 33.9 % (32.0-36.0); Mean Corpuscular Hemoglobin 29.2 pg (27.0-34.0); Mean Corpuscular Volume 86.1 fL (80.0-100.0); Mean Platelet Volume 10.6 fL (7.0-11.0); Mono # (Auto) 0.3 th/mm3 (0.0-0.9); Mono % (Auto) 5.3 % (0.0-8.0); Neut # (Auto) 4.9 th/mm3 (1.8-7.7); Neut % (Auto) 80.1 % (16.0-70.0); Platelet Count 124 th/mm3 (150-450); Red Blood Count 4.61 mil/mm3 (4.50-5.90); Red Cell Distribution Width 13.6 % (11.6-17.2); White Blood Count 6.2 th/mm3 (4.0-11.0)
[2018-04-08] MEDS: Senna/Docusate Sodium 8.6/50 MG Tablet PO SCH ×2 (09:06→21:00)
[2018-04-08] MEDS: Gabapentin 300 MG Capsule PO SCH ×2 (09:06→20:56)
[2018-04-08 09:43] LABS: Anion Gap 5 meq/L (5-15); Blood Urea Nitrogen 13 mg/dL (7-18); Calcium 8.4 mg/dL (8.5-10.1); Carbon Dioxide 26.8 meq/L (21.0-32.0); Chloride 109 meq/L (98-107); Glomerular Filtration Rate Greater Than 89 mL/min (>89); Glucose,Random 88 mg/dL (74-106); Potassium 3.8 meq/L (3.5-5.1); Sodium 141 meq/L (136-145)
--- NOTE | 2018-04-08 15:02 | P.PNIM ---
Subjective Interval history: Patient sitting upright in bed with staff assisting the patient while he attempts to eat. He does not appear to be in any acute distress. Physical Exam Vital signs: Vital Signs 04/07/18 16:52 04/07/18 17:07 04/07/18 19:23 Temperature 98.8 F Pulse Rate 91 H 86 Respiratory Rate 18 Blood Pressure 71/48 L 121/80 Pulse Oximetry 91 L 04/07/18 19:24 04/08/18 00:00 04/08/18 04:00 Temperature 98.0 F 98.3 F Pulse Rate 86 75 88 Respiratory Rate 17 17 Blood Pressure 148/90 H 178/97 H 157/92 H Pulse Oximetry 98 95 95 04/08/18 08:00 04/08/18 12:00 Temperature 98.1 F 97.9 F Pulse Rate 87 87 Respiratory Rate 16 16 Blood Pressure 160/98 H 113/74 Pulse Oximetry 98 96 Intake & Output 04/07/18 04/08/18 04/08/18 18:59 06:59 18:59 Intake Total 2350 / 2350 Balance 2350 / 2350 Weight 56.699 kg 56.699 kg Intake: IV 2350 / 2350 Azithromycin Inj 500 MG In NS 250 / 250 Inj 250 ML @ 250 mls/hr IV.SIG ONCE ONE Rx#:[id number] NS Inj 1,000 ML @ Wide Open IV. 1999 / 1999 SIG BOLUS GEORGE Rx#:[id number] Rocephin Inj 1,000 MG In NS Inj 100 / 100 100 ML @ 200 mls/hr IV.SIG ONCE ONE Rx#:[id number] Other: # Incontinent Voids 2 Weight On Admission 56.699 kg Narrative: General patient in no acute distress, he does not respond clearly to any questions or commands. HEENT extraocular movements are intact, clear oropharyngeal mucosa, no JVD Cardiovascular S1-S2 audible Respiratory clear to auscultation bilaterally Abdomen soft, nontender, nondistended, normal bowel sounds Extremities no edema 2+ distal pulses in bilateral upper and lower extremities Neuro patient does move all 4 extremities sensation is he continuously is moving his bilateral lower extremities. He is not following any specific commands. Full neurological examination is difficult to assess given the patient's current medical state. Results - Labs CBC & Chem 7: 04/08/18 08:09 04/08/18 08:09 Laboratory Results - last 24 hr 10/17/18 10/17/18 10/17/18 17:30 17:30 17:30 WBC 6.5 RBC 4.56 Hgb 13.1 Hct 39.8 MCV 87.3 MCH 28.8 MCHC 33.0 RDW 14.1 Plt Count 132 L MPV 12.1 H Neut % (Auto) 70.1 H Lymph % (Auto) 21.8 [place] % (Auto) 6.9 Eos % (Auto) 0.8 Baso % (Auto) 0.4 Neut # (Auto) 4.6 Lymph # (Auto) 1.4 [place] # (Auto) 0.5 Eos # (Auto) 0.1 Baso # (Auto) 0.0 WBC Differential . Differential Comment Auto diff final PT 10.9 INR 1.1 APTT 27.4 Sodium 141 Potassium 3.3 L Chloride 108 H Carbon Dioxide 27.7 Anion Gap 5 BUN 25 H Creatinine 0.83 Estimated GFR Greater than 89 Random Glucose 103 Lactic Acid Calcium 8.8 Total Bilirubin 1.0 AST 18 ALT 10 L Alkaline Phosphatase 86 Total Creatine Kinase 61 Total Protein 7.8 Albumin 3.5 Stl C.difficile DNA Amp St C. diff Tox Epid 027 04/07/18 04/07/18 04/08/18 19:00 20:42 08:09 WBC 6.2 RBC 4.61 Hgb 13.5 Hct 39.7 MCV 86.1 MCH 29.2 MCHC 33.9 RDW 13.6 Plt Count 124 L MPV 10.6 Neut % (Auto) 80.1 H Lymph % (Auto) 13.8 [place] % (Auto) 5.3 Eos % (Auto) 0.4 Baso % (Auto) 0.4 Neut # (Auto) 4.9 Lymph # (Auto) 0.8 L [place] # (Auto) 0.3 Eos # (Auto) 0.0 Baso # (Auto) 0.0 WBC Differential . Differential Comment Auto diff final PT INR APTT Sodium Potassium Chloride Carbon Dioxide Anion Gap BUN Creatinine Estimated GFR Random Glucose Lactic Acid 1.1 Calcium Total Bilirubin AST ALT Alkaline Phosphatase Total Creatine Kinase Total Protein Albumin Stl C.difficile DNA Amp Negative St C. diff Tox Epid 027 Negative 04/08/18 08:09 WBC RBC Hgb Hct MCV MCH MCHC RDW Plt Count MPV Neut % (Auto) Lymph % (Auto) [place] % (Auto) Eos % (Auto) Baso % (Auto) Neut # (Auto) Lymph # (Auto) [place] # (Auto) Eos # (Auto) Baso # (Auto) WBC Differential Differential Comment PT INR APTT Sodium 141 Potassium 3.8 Chloride 109 H Carbon Dioxide 26.8 Anion Gap 5 BUN 13 Creatinine 0.58 L Estimated GFR Greater than 89 Random Glucose 88 Lactic Acid Calcium 8.4 L Total Bilirubin AST ALT Alkaline Phosphatase Total Creatine Kinase Total Protein Albumin Stl C.difficile DNA Amp St C. diff Tox Epid 027 Microbiology 04/07/18 19:00 Blood - Peripheral Aerobic Blood Culture - Preliminary No growth in 1 day 04/07/18 19:00 Blood - Peripheral Anaerobic Blood Culture - Preliminary No growth in 1 day 04/07/18 18:55 Blood - Peripheral Aerobic Blood Culture - Preliminary No growth in 1 day 04/07/18 18:55 Blood - Peripheral Anaerobic Blood Culture - Preliminary No growth in 1 day 04/07/18 20:42 Stool Stool for WBCs - Final Rare WBC's - Imaging Impressions Abdomen/Pelvis CT 04/07/18 17:44 CONCLUSION: 1. Mild basilar groundglass opacity and early consolidative infiltrate at the right lung base. 2. Severe constipation. No acute findings within the abdomen and pelvis. Chest X-Ray 04/07/18 18:46 CONCLUSION: Negative examination. Assessment and Plan - Plan Patient is a 58-year-old male with a diagnosis of Parkinson's disease, dementia. He was admitted to [place] after having constipation and was found to have a right lower lobe pneumonia. The patient's mother takes care of him at home with the help of nurses. 1. Right lower lobe community acquired pneumonia Imaging shows a right lower lobe pneumonia. Patient is currently on room air without any shortness of breath. He has been afebrile over the past 24 hours. Continue current medication regimen. Cultures will be followed up. 2. Severe constipation Patient is currently on stool softeners. He received a Fleet enema yesterday. According to the nurse that the patient had couple of bowel movements today. 3. Dysphagia Was evaluated the patient while he was eating today. It appears that the patient does have some difficulty tolerating a p.o. diet. According to the patient's mother who is blind he is able to tolerate a p.o. diet while at home. We will get a swallow evaluation today. He will be kept n.p.o. for now. D5W with NS IV fluids started today. 3. Parkinson's disease Continue carbidopa/levodopa 4. Neuropathy Continue gabapentin SCDs for dvt prophylaxis
[2018-04-08] MEDS: Dextrose 5%/NaCl 0.9% Inj 1,000 ML IV.CONT SCH (15:51)
[2018-04-08] MEDS ORDERED: Azithromycin Inj 500 MG in Sodium Chlor 0.9% Inj 250 ML IV.SIG SCH (21:00)
[2018-04-08] MEDS ORDERED: Temazepam 15 MG Capsule PO SCH (21:00)
[2018-04-08] MEDS: PYRIDOSTIGMINE 180 MG PO SCH (21:00)
[2018-04-09] MEDS: Dextrose 5%/NaCl 0.9% Inj 1,000 ML IV.CONT SCH ×2 (05:18→16:38)
[2018-04-09] MEDS: Gabapentin 300 MG Capsule PO SCH (09:32)
[2018-04-09] MEDS: Senna/Docusate Sodium 8.6/50 MG Tablet PO SCH (09:33)
[2018-04-09] MEDS: PYRIDOSTIGMINE 180 MG PO SCH (09:41)
[2018-04-09 12:34] VITALS: RESP 16
[2018-04-09 16:10] VITALS: BP 141/91; PULSE 91; TEMP 98.3; O2SAT 99
--- NOTE | 2018-04-09 18:01 | P.DS ---
Date of admission: 04/07/18 21:47 Primary care physician: UNKNOWN Brief History from admission: 58-year-old male with a past medical history significant for Parkinson's disease , dementia and neuropathy presents to the emergency department for the evaluation of 4 days of diarrhea. His mother and his caregiver are bedside and report that he started to have rectal skin breakdown secondary to the diarrhea. CT of the abdomen/pelvis reveals severe constipation. The patient has also had a nonproductive cough times [address] He is also had subjective fever/chills. DS: Medications - Discharge Medications Prescriptions: azithromycin 250 mg PO DAILY #3 tab DS: Summary Hospital Course: Patient is a 58-year-old male with a diagnosis of Parkinson's disease, dementia. He was admitted to [place] after having constipation and was found to have a right lower lobe pneumonia. The patient at baseline is able to get out of bed to his wheelchair with assistance however is unable to ambulate given his current condition. His mother is also legally blind and has the assistance of nurses 8 hours a day in order to take care of her son. He was brought into the emergency department because of constipation. 1. Right lower lobe community acquired pneumonia When the patient arrived imaging was done which showed a right lower lobe pneumonia. The patient did not have, fevers, or an elevated WBC count. He was started on treatment for the pneumonia and has received 2 days of IV antibiotics while in house. He will be discharged with 3 more days of p.o. antibiotics. Patient was not producing sputum in order to collect a sputum culture. He is currently on room air without any complaints of shortness of breath and he will be discharged home today. 2. Severe constipation The patient was having severe constipation while he was at home. The mother said she had checked his rectum and could feel hard stool. CT scan of the abdomen pelvis showed severe constipation and a right lower lobe infiltrate. He was given a Fleet enema and started on stool softeners. The patient had multiple bowel movements while he was in-house. He is now having regular bowel movements. As per the patient's mother he has Colace at home which he can continue to take. If they notice that the patient is having constipation in the future he may need another stool softener to be added to his medication regimen. The patient should follow-up with his primary care doctor within the next week for evaluation. 3. Dysphagia The patient was noted to have some difficulty while eating his food after initial evaluation. He was kept n.p.o. and a swallow evaluation was done. Recommendations are to continue the patient on a pured diet with honey thickened liquids. He seems to be tolerating his diet well. 3. Parkinson's disease Continue carbidopa/levodopa 4. Neuropathy Continue gabapentin - Time Spent with Patient Total time spent providing and/or coordinating discharge services: Greater than 30 minutes - Quality: VTE Deep Vein Thrombosis/Pulmonary Embolism Present on Admission: No Exam Vital signs: Vital Signs 04/08/18 19:24 04/08/18 23:34 04/09/18 04:00 Temperature 98.6 F 98.6 F 98.5 F Pulse Rate 95 H 84 78 Respiratory Rate 18 16 16 Blood Pressure 164/110 H 117/76 122/74 Pulse Oximetry 100 98 04/09/18 08:00 04/09/18 12:00 04/09/18 16:00 Temperature 97.9 F 97.8 F 98.3 F Pulse Rate 76 94 H 91 H Respiratory Rate 12 16 16 Blood Pressure 173/101 H 120/84 141/91 H Pulse Oximetry 99 98 99 Intake & Output 04/08/18 04/09/18 04/09/18 18:59 06:59 18:59 Intake Total 1350 / 1350 1000 / 1000 Balance 1350 / 1350 1000 / 1000 Intake: IV 1350 / 1350 1000 / 1000 D5W/Normal Saline Inj 1,000 ML 1000 / 1000 1000 / 1000 @ 84 mls/hr IV.CONT .[id number] GEORGE Rx#:[id number] Azithromycin Inj 500 MG In NS 250 / 250 Inj 250 ML @ 250 mls/hr IV.SIG Q24H GEORGE Rx#:[id number] Rocephin Inj 1,000 MG In NS Inj 100 / 100 100 ML @ 200 mls/hr IV.SIG Q24H GEORGE Rx#:[id number] Other: # Incontinent Voids 4 Date of Last Bowel Movement 04/08/18 04/08/18 04/08/18 # Incontinent Bowel Movements 2 Narrative: General patient in no acute distress. He is responding appropriately to my questions today. HEENT extraocular movements are intact, clear oropharyngeal mucosa, no JVD Cardiovascular S1-S2 audible Respiratory clear to auscultation bilaterally Abdomen soft, nontender, nondistended, normal bowel sounds Extremities no edema 2+ distal pulses in bilateral upper and lower extremities Neuro patient does move all 4 extremities sensation is he continuously is moving his bilateral lower extremities. Today the patient is responding to my questions and commands appropriately. He appears more awake and is happy today. Results Procedures completed during hospitalization: none Labs on day of discharge: Preliminary micro results at discharge 04/07/18 19:00 Aerobic Blood Culture - Preliminary Blood - Peripheral No growth in 2 days Anaerobic Blood Culture - Preliminary No growth in 2 days 04/07/18 18:55 Aerobic Blood Culture - Preliminary Blood - Peripheral No growth in 2 days Anaerobic Blood Culture - Preliminary No growth in 2 days - Impressions ITS Impressions Abdomen/Pelvis CT 04/07/18 17:44 CONCLUSION: 1. Mild basilar groundglass opacity and early consolidative infiltrate at the right lung base. 2. Severe constipation. No acute findings within the abdomen and pelvis. Chest X-Ray 04/07/18 18:46 CONCLUSION: Negative examination. Discharge Plan - Discharge Disposition Patient Disposition: 01 Discharge Home - Discharge Condition Condition: Stable - Discharge Order Discharge Orders: Discharge Order (Routine); Ordered 04/09/18 Ordered By: Ezequiel Payne - Physicians Team Primary Care Provider: UNKNOWN, Attending Provider: Ezequiel Payne
== END 2018-04-09 18:45 | disposition home or self-care (01) ==
LOC: NEPC 16:45 → INTOOBSV 20:33 → NEDA 20:33 → NEPGCP 23:23
PROVIDERS: ADMIT Hospitalist; ATTEND Hospitalist

== ENCOUNTER 2018-04-13 12:22 | Observation (INO) ==
[2018-04-13] MEDS ORDERED: Sod Chloride 0.9% Inj 1,000 ML IV.SIG ONE (15:20)
--- NOTE | 2018-04-13 15:30 | ED ---
HPI General Chief complaint: Nausea/Vomiting/Diarrhea Stated complaint: Diharrea/Blockage Complaint Time Seen by Provider: 04/13/18 15:02 Source: patient Mode of arrival: ambulatory Limitations: no limitations History of Present Illness HPI Narrative: 58-year-old male with a history of Parkinson's disease, dementia presents to the emergency department with his mother for evaluation of persistent diarrhea that is been going on for approximately 1 week. Mother provides most of the history. She is unable to quantify the diarrhea but states it has been watery and malodorous. Patient denies hematochezia or melena. Mother states he has felt warm but denies actual fever. Patient denies abdominal pain and is unable to give me any further information regarding his diarrhea or abdominal symptoms. She states patient has had decreased food intake because of presumed nausea. Denies vomiting. Mother states that she is concerned about the pneumonia and low potassium that he had while in the hospital as well. She states that he wakes up sometimes "gasping for air". Patient denies shortness of breath and does not indicate chest pain at this time. Mother says she has a [employer] RN that comes to the house 7 days/week and is with the patient 7 hours a day. MD complaint: Reports diarrhea; Denies nausea and vomiting Onset (ago): day(s) Description of Vomiting: watery Description of Diarrhea: watery Associated Abdominal Pain: No Related Data Home Medications Medication Instructions Recorded Confirmed aspirin [Aspir-Low] 81 mg PO DAILY 01/29/18 04/13/18 donepezil [Aricept] 10 mg PO HS 01/29/18 04/13/18 oxybutynin chloride 5 mg PO TID 01/29/18 04/13/18 temazepam [Restoril] 30 mg PO HS 01/29/18 04/13/18 carbidopa-levodopa [Sinemet] 1 tab PO QID 02/02/18 04/13/18 gabapentin 300 mg PO BID 02/02/18 04/13/18 gabapentin 600 mg PO HS 02/02/18 04/13/18 pyridostigmine bromide 180 mg PO BID 02/02/18 04/13/18 clonidine HCl 0.1 mg PO PRN PRN 04/08/18 04/13/18 cyproheptadine 4 mg PO BID 04/08/18 04/13/18 droxidopa 400 mg PO BID 04/08/18 04/13/18 sertraline 25 mg PO DAILY 04/08/18 04/13/18 Allergies Allergy/AdvReac Type Severity Reaction Status Date / Time No Known Allergies Allergy Verified 04/13/18 13:25 Review of Systems ROS: all other systems reviewed are negative [facility] Medical History Medical History Degenerative disc disease (Acute) Dementia (Acute) Parkinsonism (Acute) Social History Social History Substance History: No History of Abuse Second Hand Smoke Exposure: No Smoking Status: Former smoker Tobacco Type: Cigarettes How Often Do You Have a Drink Containing Alcohol: Never Recent Travel in [facility] within the Last 8 Weeks: No Recent Out of Country Travel within the Last 8 Weeks: No Immunization History Tetanus Immunization: <5 Years Exam Narrative Exam Narrative: GENERAL: Well-developed, cachectic appearing in no acute distress SKIN: Focused skin assessment warm/dry. HEAD: Atraumatic. Normocephalic. EYES: Pupils equal and round. No scleral icterus. No injection or drainage. ENT: No nasal bleeding or discharge. Mucous membranes pink and moist. NECK: Trachea midline. No JVD. No lymphadenopathy CARDIOVASCULAR: Regular rate and rhythm. No murmur appreciated. RESPIRATORY: No accessory muscle use. Clear to auscultation. Breath sounds equal bilaterally. GASTROINTESTINAL: Abdomen semirigid, non-tender, nondistended. Hepatic and splenic margins not palpable. MUSCULOSKELETAL: No obvious deformities. No clubbing. No cyanosis. No edema. No tenderness palpation of the calves NEUROLOGICAL: Awake and alert. No obvious cranial nerve deficits. Motor grossly within normal limits. Normal speech. PSYCHIATRIC: Appropriate mood and affect; insight and judgment normal. Course Initial Documented Vital Signs Temperature 97.3 F L 04/13/18 13:13 Pulse Rate 97 H 04/13/18 13:13 Respiratory Rate 16 04/13/18 13:13 Blood Pressure 76/53 L 04/13/18 13:13 Pulse Oximetry 93 L 04/13/18 13:13 Last Documented Vital Signs Temperature 97.3 F L 04/13/18 13:13 Pulse Rate 86 04/13/18 19:24 Respiratory Rate 18 04/13/18 19:24 Blood Pressure 169/101 H 04/13/18 18:22 Pulse Oximetry 97 04/13/18 19:24 Medical Decision Making MDM Narrative Medical decision making narrative: 58-year-old male presents to the emergency department with his mother with concerns of continuous diarrhea that started approximately 7 days ago. Patient was admitted and treated for pneumonia at that time. He was also treated for severe constipation. She states that his last antibiotic was a couple of days ago. I reviewed the EMR it appears that patient was here and treated for an incidental finding of pneumonia and severe constipation. He was discharged with antibiotics and she states his last dose was a couple of days ago. C. difficile was negative here in the hospital. Vital signs are stable. Labs are stable. Mild hypokalemia at 3.3. 20meq potassium administered. Chest x-ray were performed as mother was concerned about a persistent pneumonia. Chest x-ray is clear at this time. CT abdomen and pelvis performed as patient has had persistent diarrhea. He does not indicate pain however, there is concern for an obstruction based off of history and physical. I reviewed this imaging study with my attending. I intended on attempting disimpaction however, because of his history of hemorrhoids and severity of the impaction, recommended admit for observation with GI consult. I spoke with Dr Driscoll who agreed to the admission. Requests I call GI/ colorectal for evaluation. Colorectal unavailable, will consult GI. I spoke with Dr. Perry who recommended manual disimpaction, then 3-5 enemas , then 1 gallon golytely and consult for GI. States he would see them in the morning. I again discussed this with Dr. Brandon, my attending who recommended against the disimpaction while in the ED. Will defer to admitting team and GI for further treatment and evaluation. Medical Screen Exam Complete: Yes Emergency Medical Condition: Yes Differential Diagnosis Differential Diagnosis: Functional diarrhea, bowel obstruction, perforated viscus, antibiotic induced diarrhea Lab Data Result diagrams: 04/13/18 15:41 04/13/18 15:41 Lab Results 04/13/18 04/13/18 Range/Units 15:41 15:41 WBC 6.1 (4.0-11.0) th/mm3 RBC 4.89 (4.50-5.90) mil/mm3 Hgb 14.5 (13.0-17.0) gm/dL Hct 42.5 (39.0-51.0) % MCV 86.9 (80.0-100.0) fL MCH 29.6 (27.0-34.0) pg MCHC 34.1 (32.0-36.0) % RDW 13.9 (11.6-17.2) % Plt Count 141 L (150-450) th/mm3 MPV 10.5 (7.0-11.0) fL Neut % (Auto) 75.3 H (16.0-70.0) % Lymph % (Auto) 16.5 (9.0-44.0) % [place] % (Auto) 7.1 (0.0-8.0) % Eos % (Auto) 0.7 (0.0-4.0) % Baso % (Auto) 0.4 (0.0-2.0) % Neut # (Auto) 4.6 (1.8-7.7) th/mm3 Lymph # (Auto) 1.0 (1.0-4.8) th/mm3 [place] # (Auto) 0.4 (0.0-0.9) th/mm3 Eos # (Auto) 0.0 (0.0-0.4) th/mm3 Baso # (Auto) 0.0 (0.0-0.2) th/mm3 WBC Differential . Differential Comment Auto diff final Sodium 140 (136-145) meq/L Potassium 3.3 L (3.5-5.1) meq/L Chloride 102 (98-107) meq/L Carbon Dioxide 28.2 (21.0-32.0) meq/L Anion Gap 10 (5-15) meq/L BUN 19 H (7-18) mg/dL Creatinine 1.13 (0.60-1.30) mg/dL Estimated GFR 67 L (>89) mL/min Random Glucose 99 (74-106) mg/dL Calcium 8.9 (8.5-10.1) mg/dL Magnesium 2.2 (1.5-2.5) mg/dL Total Bilirubin 1.1 H (0.2-1.0) mg/dL AST 22 (15-37) U/L ALT 12 (12-78) U/L Alkaline Phosphatase 81 (45-117) U/L Total Protein 8.0 (6.4-8.2) g/dL Albumin 3.8 (3.4-5.0) g/dL Lipase 99 (73-393) U/L TSH 1.500 (0.358-3.740) uIU/mL Imaging Data Radiologist's impression: Chest X-Ray 04/13/18 15:20 CONCLUSION: No acute cardiopulmonary disease. Abdomen/Pelvis CT 04/13/18 16:25 CONCLUSION: Rectal fecal impaction. Discharge Plan Discharge Disposition Patient Disposition: 30 Still Patient Discharge Condition Condition: Stable Discharge Details Diagnosis: Fecal impaction in rectum Physicians Team ED Provider: Thanh Brandon ED Midlevel Provider: Raven Rios Primary Care Provider: UNKNOWN, Attending Provider: Errol Driscoll Status ED Status: Admitted Observation Patient
--- NOTE | 2018-04-13 16:12 | XR ---
EXAM DATE: 04/13/2018 3:20 PM EDT AGE/SEX: 58 years / Male INDICATIONS: . Short of breath. CLINICAL DATA: This is the patient's initial encounter. Patient reports that signs and symptoms have been present for 3 days and indicates a pain score of 2/10. MEDICAL/SURGICAL HISTORY: . Dementia. Parkinson's disease. . [place] [facility] [place]. . FINDINGS: PA and lateral views of the chest demonstrate the lungs to be symmetrically aerated without evidence of mass, infiltrate or effusion. Calcified granulomas. The cardiomediastinal contours are unremarkabl e. Osseous structures are intact. CONCLUSION: No acute cardiopulmonary disease. Electronically signed by: Dennis Holley MD 04/13/2018 4:11 PM EDT
[2018-04-13 16:13] LABS: Baso % (Auto) 0.4 % (0.0-2.0); Eos % (Auto) 0.7 % (0.0-4.0); Hematocrit 42.5 % (39.0-51.0); Hemoglobin 14.5 gm/dL (13.0-17.0); Lymph % (Auto) 16.5 % (9.0-44.0); Mean Corpuscular HGB Conc 34.1 % (32.0-36.0); Mean Corpuscular Hemoglobin 29.6 pg (27.0-34.0); Mean Corpuscular Volume 86.9 fL (80.0-100.0); Mean Platelet Volume 10.5 fL (7.0-11.0); Mono # (Auto) 0.4 th/mm3 (0.0-0.9); Mono % (Auto) 7.1 % (0.0-8.0); Neut # (Auto) 4.6 th/mm3 (1.8-7.7); Neut % (Auto) 75.3 % (16.0-70.0); Platelet Count 141 th/mm3 (150-450); Red Blood Count 4.89 mil/mm3 (4.50-5.90); Red Cell Distribution Width 13.9 % (11.6-17.2); White Blood Count 6.1 th/mm3 (4.0-11.0)
[2018-04-13 16:26] LABS: Albumin 3.8 g/dL (3.4-5.0); Aspartate Aminotransferase 22 U/L (15-37); Blood Urea Nitrogen 19 mg/dL (7-18); Calcium 8.9 mg/dL (8.5-10.1); Carbon Dioxide 28.2 meq/L (21.0-32.0); Glomerular Filtration Rate 67 mL/min (>89); Glucose,Random 99 mg/dL (74-106); Lipase 99 U/L (73-393); Magnesium 2.2 mg/dL (1.5-2.5)
[2018-04-13 16:52] LABS: Alanine Aminotransferase 12 U/L (12-78); Alkaline Phosphatase 81 U/L (45-117); Anion Gap 10 meq/L (5-15); Chloride 102 meq/L (98-107); Potassium 3.3 meq/L (3.5-5.1); Sodium 140 meq/L (136-145)
--- NOTE | 2018-04-13 17:50 | CT ---
EXAM DATE: 04/13/2018 4:32 PM EDT AGE/SEX: 58 years / Male INDICATIONS: Diarrhea CLINICAL DATA: This is the patient's initial encounter. Patient reports that signs and symptoms have been present for 1 day and indicates a pain score of 0/10. MEDICAL/SURGICAL HISTORY: Dementia. Parkinson's disease. None. ORAL CONTRAST: No oral contrast ingested. RADIATION DOSE: 646 CTDI (mGy) COMPARISON: [facility] – [place] ABDOMEN & PELVIS W/O CONTRAST, 04/07/2018. . TECHNIQUE: Multiple contiguous axial images were obtained through the abdomen and pelvis following b olus infusion of 70 ml Omnipaque 350 (iohexol) nonionic water-soluble contrast as a single exam dos e. No oral contrast ingested. Using automated exposure control and adjustment of the mA and/or kV ac cording to patient size, radiation dose was kept as low as reasonably achievable to obtain optimal di agnostic quality images. DICOM format image data is available electronically for review and comparis on. FINDINGS: Lower Lungs: Mild basilar atelectasis. Liver: The liver has a homogeneous density without space-occupying lesion. There is no dilation of th e biliary tree. Spleen: Homogeneous density without enlargement. Pancreas: Unremarkable without mass or calcification. Kidneys: Left renal cysts. No suspicious mass, stone or hydronephrosis. Adrenal Glands: Unremarkable. Aorta: The aorta and proximal iliac vessels are grossly unremarkable without aneurysmal dilation. Bowel/Mesentery: The colon is notable for abundant stool throughout with rectal fecal impaction. The small bowel is nondilated. Abdominal Wall: Intact. Retroperitoneum: No evidence of adenopathy in the retrocrural, para-aortic, or deep pelvic regions. Bladder: Contours are smooth. Reproductive Organs: No abnormal masses or calcifications seen. Inguinal: The inguinal region is unremarkable without evidence of adenopathy. Bony Structures: Unremarkable. CONCLUSION: Rectal fecal impaction. Electronically signed by: Anson Andrade MD 04/13/2018 5:49 PM EDT
--- NOTE | 2018-04-13 20:40 | P.HP ---
History of Present Illness Service: [facility] Primary Care Physician: UNKNOWN History of Present Illness: 58-year-old male with a past medical history significant for Parkinson's disease , dementia, neuropathy and hypertension presents to the emergency department for evaluation of persistent diarrhea. The patient was seen on 04/07/18 where he was admitted for an incidental finding of pneumonia on CT. His mother, who is his primary caregiver, reports that since discharge the patient's diarrhea has not improved. She states he has felt warm to the touch several times but has not actually taken his temperature. Patient is sitting in bed comfortably at this time. CT of the abdomen/pelvis shows abundant stool throughout with rectal fecal impaction. The patient denies any chest pain or shortness of breath. He denies abdominal pain. No lateralizing signs/symptoms. Inpatient Certification: I certify that the inpatient services were ordered in accordance with Medicare regulations governing the order. This includes certification that hospital inpatient services are reasonable and necessary and in the case of services not specified as inpatient-only under 42 CFR 419.22(n), that they are appropriately provided as inpatient services in accordance to with the 2-midnight benchmark under 43 CFR 412.3(e) Estimated Total Length of Stay (Days): 2 Plans for Post Hospital Care: Not yet determined Review of Systems All other systems reviewed negative except as stated in HPI PMFSH - History History Provided By: Family Member - Medical History Medical History: Medical History (Last Updated 04/13/18 @ 20:35 by Araceli Martinez MD) Hypertension Degenerative disc disease Dementia Parkinsonism - Surgical History Surgical History: Surgical History (Last Reviewed 04/13/18 @ 20:35 by Araceli Martinez MD) No history of previous surgery - Family History Family History: Family History (Last Reviewed 04/13/18 @ 20:35 by Araceli Martinez MD) Other Coronary artery disease Diabetes mellitus - Tobacco History Second Hand Smoke Exposure: No Tobacco Use In Past 30 Days: No Smoking Status: Former smoker Tobacco Type: Cigarettes - Alcohol History How Often Do You Have a Drink Containing Alcohol: Never - Substance Use History Substance History: No History of Abuse - Travel History Recent Travel in the [place] Within the Last 8 Weeks: No Recent Travel Out of the Country Within the Last 8 Weeks: No - Immunization History Tetanus Immunization: <5 Years Medications and Allergies Active Medications: Active Medications Sodium Chloride (Ns Flush) 2 ml IV.FLUSH PRN PRN PRN Reason: FLUSH AFTER USING IV ACCESS Sodium Chloride (Ns Flush) 2 ml IV.FLUSH BID GEORGE Sodium Chloride (Ns Flush) 2 ml IV.FLUSH PRN PRN PRN Reason: FLUSH AFTER USING IV ACCESS Allergies Allergy/AdvReac Type Severity Reaction Status Date / Time No Known Allergies Allergy Verified 04/13/18 13:25 Home Medications Medication Instructions Recorded Confirmed Type aspirin [Aspir-Low] 81 mg PO DAILY 01/29/18 04/13/18 History donepezil [Aricept] 10 mg PO HS 01/29/18 04/13/18 History oxybutynin chloride 5 mg PO TID 01/29/18 04/13/18 History temazepam [Restoril] 30 mg PO HS 01/29/18 04/13/18 History carbidopa-levodopa [Sinemet] 1 tab PO QID 02/02/18 04/13/18 History gabapentin 300 mg PO BID 02/02/18 04/13/18 History gabapentin 600 mg PO HS 02/02/18 04/13/18 History pyridostigmine bromide 180 mg PO BID 02/02/18 04/13/18 History clonidine HCl 0.1 mg PO PRN PRN 04/08/18 04/13/18 History cyproheptadine 4 mg PO BID 04/08/18 04/13/18 History droxidopa 400 mg PO BID 04/08/18 04/13/18 History sertraline 25 mg PO DAILY 04/08/18 04/13/18 History Exam Vital signs: Vital Signs 04/13/18 13:13 04/13/18 15:13 04/13/18 18:22 Temperature 97.3 F L Pulse Rate 97 H 89 91 H Respiratory Rate 16 17 17 Blood Pressure 76/53 L 106/66 169/101 H Pulse Oximetry 93 L 98 98 04/13/18 19:24 Temperature Pulse Rate 86 Respiratory Rate 18 Blood Pressure Pulse Oximetry 97 Intake & Output 04/13/18 04/13/18 04/14/18 06:59 18:59 06:59 Intake Total 1000 / 1000 Balance 1000 / 1000 Weight 45.359 kg Intake: IV 1000 / 1000 NS Inj 1,000 ML @ Wide Open IV. 1000 / 1000 SIG BOLUS ONE Rx#:[id number] Narrative: Gen.: No acute distress Head: Normocephalic. Atraumatic. EENT: Pupils equal round and reactive to light. Nose without drainage. Airway intact. Throat without injection. Cardiovascular: Regular rate and rhythm. No murmurs, rubs or gallops. Respiratory: Lungs clear to auscultation bilaterally. No wheezes or rhonchi. Abdomen: Soft, nontender, nondistended. No peritoneal signs. Musculoskeletal: No gross deformities. No edema. Skin: No obvious rashes or erythema. Neuro: Sensory and motor grossly intact. Cranial nerves II through XII grossly intact. Results - Labs CBC & Chem 7: 04/13/18 15:41 04/13/18 15:41 Labs: Laboratory Results - last 24 hr 04/13/18 04/13/18 15:41 15:41 WBC 6.1 RBC 4.89 Hgb 14.5 Hct 42.5 MCV 86.9 MCH 29.6 MCHC 34.1 RDW 13.9 Plt Count 141 L MPV 10.5 Neut % (Auto) 75.3 H Lymph % (Auto) 16.5 [place] % (Auto) 7.1 Eos % (Auto) 0.7 Baso % (Auto) 0.4 Neut # (Auto) 4.6 Lymph # (Auto) 1.0 [place] # (Auto) 0.4 Eos # (Auto) 0.0 Baso # (Auto) 0.0 WBC Differential . Differential Comment Auto diff final Sodium 140 Potassium 3.3 L Chloride 102 Carbon Dioxide 28.2 Anion Gap 10 BUN 19 H Creatinine 1.13 Estimated GFR 67 L Random Glucose 99 Calcium 8.9 Magnesium 2.2 Total Bilirubin 1.1 H AST 22 ALT 12 Alkaline Phosphatase 81 Total Protein 8.0 Albumin 3.8 Lipase 99 TSH 1.500 - Imaging Impressions Chest X-Ray 04/13/18 15:20 CONCLUSION: No acute cardiopulmonary disease. Abdomen/Pelvis CT 04/13/18 16:25 CONCLUSION: Rectal fecal impaction. Caprini VTE Risk Assessment Caprini VTE Risk Assessment: No/Low Risk (score <= 1) Caprini Risk Assessment Model: Point Value = 1 Point Value = 2 Point Value = 3 Point Value = 5 Age 41-60 Minor surgery BMI > 25 kg/m2 Swollen legs Varicose veins or History of unexplained or recurrent spontaneous Oral contraceptives or hormone replacement Sepsis (< 1 month) Serious lung disease, including pneumonia (< 1 month) Abnormal pulmonary function Acute myocardial infarction Congestive heart failure (< 1 month) History of inflammatory bowel disease Medical patient at bed rest Age 61-74 Arthroscopic surgery Major open surgery (> 45 min) Laparoscopic surgery (> 45 min) Malignancy Confined to bed (> 72 hours) Immobilizing plaster cast Central venous access Age >= 75 History of VTE Family history of VTE Factor V Leiden Prothrombin [id number] Lupus anticoagulant Anticardiolipin antibodies Elevated serum homocysteine Heparin-induced thrombocytopenia Other congenital or acquired thrombophilia Stroke (< 1 month) Elective arthroplasty Hip, pelvis, or leg fracture Acute spinal cord injury (< 1 month) Prophylaxis Regimen: Total Risk Factor Score Risk Level Prophylaxis Regimen 0-1 Low Early ambulation 2 Moderate Order ONE of the following: *Sequential Compression Device (SCD) *Heparin 5000 units SQ BID 3-4 Higher Order ONE of the following medications: *Heparin 5000 units SQ TID *Enoxaparin/Lovenox 40 mg SQ daily (WT < 150 kg, CrCl > 30 mL/min) *Enoxaparin/Lovenox 30 mg SQ daily (WT < 150 kg, CrCl > 10-29 mL/min) *Enoxaparin/Lovenox 30 mg SQ BID (WT < 150 kg, CrCl > 30 mL/min) AND/OR *Sequential Compression Device (SCD) 5 or more Highest Order ONE of the following medications: *Heparin 5000 units SQ TID (Preferred with Epidurals) *Enoxaparin/Lovenox 40 mg SQ daily (WT < 150 kg, CrCl > 30 mL/min) *Enoxaparin/Lovenox 30 mg SQ daily (WT < 150 kg, CrCl > 10-29 mL/min) *Enoxaparin/Lovenox 30 mg SQ BID (WT < 150 kg, CrCl > 30 mL/min) AND *Sequential Compression Device (SCD) Assessment and Plan - Plan Assessment/plan: 1. Diarrhea/fecal impaction Diarrhea likely secondary to overflow fecal incontinence CT of the abdomen/pelvis shows a colon with abundant stool throughout with rectal fecal impaction Gastroenterology consulted, recommend repeat enemas and go lytely overnight 2. Hypertension Continue home clonidine Hydralazine x1 Monitor 3. Dementia/Parkinson's disease Continue home medications 4. Hypokalemia Status post p.o. repletion Monitor BMP FEN N.p.o. Electrolytes: As above
[2018-04-13] MEDS ORDERED: PEG 3350/E-Lyte Soln 4000 ML Bottle PO ONE (21:00)
[2018-04-13] MEDS ORDERED: DROXIDOPA PO SCH (21:00)
[2018-04-13] MEDS ORDERED: Gabapentin 300 MG Capsule PO SCH (21:00)
[2018-04-13] MEDS ORDERED: hydrALAZINE 10 MG Tablet PO ONE (21:00)
[2018-04-13] MEDS: Mineral Oil Enema 118 ML Bottle RECTAL SCH (22:05)
[2018-04-13] MEDS: Pyridostigmine Bromide 60 MG Tablet PO SCH (22:06)
[2018-04-14] MEDS: Mineral Oil Enema 118 ML Bottle RECTAL SCH ×6 (01:20→23:16)
[2018-04-14] MEDS: Temazepam 15 MG Capsule PO SCH ×3 (01:21→22:09)
[2018-04-14] MEDS: Gabapentin 300 MG Capsule PO SCH ×5 (08:51→21:30)
[2018-04-14] MEDS: Sertraline 50 MG Tablet PO SCH (08:51)
[2018-04-14] MEDS: Pyridostigmine Bromide 60 MG Tablet PO SCH ×2 (08:56→21:31)
[2018-04-14] MEDS ORDERED: DROXIDOPA PO SCH (09:00)
[2018-04-14 11:19] LABS: Anion Gap 6 meq/L (5-15); Blood Urea Nitrogen 15 mg/dL (7-18); Calcium 8.7 mg/dL (8.5-10.1); Carbon Dioxide 26.1 meq/L (21.0-32.0); Chloride 108 meq/L (98-107); Glomerular Filtration Rate Greater Than 89 mL/min (>89); Glucose,Random 98 mg/dL (74-106); Potassium 3.7 meq/L (3.5-5.1); Sodium 140 meq/L (136-145)
--- NOTE | 2018-04-14 12:18 | P.PN ---
Subjective Interval history: Patient doing well, per mother patient has had a few small BM's. She reports that if his appetite does not improve she desires a possible PEG. Patient is voiding well, no other concerns. Patient is also refusing PO meds today. Physical Exam Vital signs: Vital Signs 04/13/18 13:13 04/13/18 15:13 04/13/18 18:22 Temperature 97.3 F L Pulse Rate 97 H 89 91 H Respiratory Rate 16 17 17 Blood Pressure 76/53 L 106/66 169/101 H Pulse Oximetry 93 L 98 98 04/13/18 19:24 04/13/18 20:00 04/14/18 00:00 Temperature 97.7 F 98.4 F Pulse Rate 86 87 88 Respiratory Rate 18 16 19 Blood Pressure 188/107 H 129/93 H Pulse Oximetry 97 99 97 04/14/18 04:00 04/14/18 07:00 04/14/18 08:00 Temperature 97.3 F L 97.9 F Pulse Rate 89 95 H Respiratory Rate 18 12 20 Blood Pressure 165/105 H 168/94 H Pulse Oximetry 98 94 L 04/14/18 12:17 Temperature Pulse Rate Respiratory Rate 12 Blood Pressure Pulse Oximetry Intake & Output 04/13/18 04/14/18 04/14/18 18:59 06:59 18:59 Intake Total 1000 / 1000 1000 / 1000 Balance 1000 / 1000 1000 / 1000 Weight 45.359 kg 55.8 kg Intake: IV 1000 / 1000 NS Inj 1,000 ML @ Wide Open IV. 1000 / 1000 SIG BOLUS ONE Rx#:[id number] Oral 1000 / 1000 Other: # Voids 3 # Incontinent Voids 4 Date of Last Bowel Movement 04/14/18 # Bowel Movements 2 # Incontinent Bowel Movements 3 Weight On Admission 52.6 kg Narrative: GENERAL: thin, male, in NAD, lying in bed SKIN: Warm and dry. HEENT: Normocephalic. Atraumatic. No scleral icterus. No injection or drainage. PERRLA, MOM. NECK: Supple, trachea midline. No JVD or lymphadenopathy. CARDIOVASCULAR: Regular rate and rhythm without murmurs, gallops, or rubs. RESPIRATORY: Breath sounds equal bilaterally. No accessory muscle use. GASTROINTESTINAL: Abdomen soft, non-tender, nondistended. MUSCULOSKELETAL: No cyanosis, or edema. BACK: Nontender without obvious deformity. No CVA tenderness. NEURO/PSYCH: AAOx2, no focal deficits, motor strength 4/5 x4, pleasant/calm. Results - Labs CBC & Chem 7: 04/13/18 15:41 04/14/18 08:40 Laboratory Results - last 24 hr 04/13/18 04/13/18 04/14/18 15:41 15:41 08:40 WBC 6.1 RBC 4.89 Hgb 14.5 Hct 42.5 MCV 86.9 MCH 29.6 MCHC 34.1 RDW 13.9 Plt Count 141 L MPV 10.5 Neut % (Auto) 75.3 H Lymph % (Auto) 16.5 [place] % (Auto) 7.1 Eos % (Auto) 0.7 Baso % (Auto) 0.4 Neut # (Auto) 4.6 Lymph # (Auto) 1.0 [place] # (Auto) 0.4 Eos # (Auto) 0.0 Baso # (Auto) 0.0 WBC Differential . Differential Comment Auto diff final Sodium 140 140 Potassium 3.3 L 3.7 Chloride 102 108 H Carbon Dioxide 28.2 26.1 Anion Gap 10 6 BUN 19 H 15 Creatinine 1.13 0.53 L Estimated GFR 67 L Greater than 89 Random Glucose 99 98 Calcium 8.9 8.7 Magnesium 2.2 Total Bilirubin 1.1 H AST 22 ALT 12 Alkaline Phosphatase 81 Total Protein 8.0 Albumin 3.8 Lipase 99 TSH 1.500 - Imaging Impressions Chest X-Ray 04/13/18 15:20 CONCLUSION: No acute cardiopulmonary disease. Abdomen/Pelvis CT 04/13/18 16:25 CONCLUSION: Rectal fecal impaction. Assessment and Plan - Assessment (1) Dementia Code(s): F03.90 - Unspecified dementia without behavioral disturbance Status: Chronic (2) Constipation Code(s): K59.00 - Constipation, unspecified Status: Acute (3) Fecal impaction in rectum Code(s): K56.41 - Fecal impaction Status: Acute - Plan This is a 58-year-old Male with PMHx of Parkinson's disease, Dementia, Neuropathy and HTN presents to the emergency department for evaluation of persistent diarrhea likely secondary to fecal impaction. Per CT of the abdomen/ pelvis abundant stool throughout with rectal fecal impaction, HD#2 1. Diarrhea Likely Secondary to Fecal impaction CT of the abdomen/pelvis shows a colon with abundant stool throughout with rectal fecal impaction Gastroenterology consulted Will cont. repeat enemas Q4hrs, s/p go lytely overnight C. Diff ordered in case, Hx of ABX use due to PNA GI RECCS 04/14: Plan -Continue bowel regimen -Mineral oil fleets enemas every 4 hours -Monitor fecal output -GoLYTELY solution as tolerated -Supportive care -Further recommendations to follow based on patient status and findings 2. Hypertension Refusing home clonidine which is PRN for SBP>160, DBP>100 Adding Vasotec IV PRN and home ASA Cont. to monitor 3. Dementia/Parkinson's disease/Anxiety/Insomnia Continue home medications, Sinemet, Aricept, Isac, Oxybutynin, Mestinon, Zoloft , and Temazepam Already has HH in place daily per mother 4. Hypokalemia, resolved K3.7 today s/p replacement Monitor BMP in AM 5. Dispo: F/U GI reccs and monitor blood pressure, refusing home Clonidine and all PO meds, added Vasotec PRN Code Status: full Discussed Condition With: patient, mother, RN (2) Constipation Qualifiers: Constipation type: unspecified constipation type Qualified Code(s): K59.00 - Constipation, unspecified
[2018-04-14] MEDS ORDERED: amLODIPine 5 MG Tablet PO SCH (12:30)
--- NOTE | 2018-04-14 12:47 | P.CONGI ---
History of Present Illness Consult date: 04/14/18 Consult reason: Severe fecal impaction Chief complaint: severe rectal impaction, diarrhea History of Present Illness: This is a 58-year-old male patient with a past medical history significant for Parkinson's disease, dementia, neuropathy, hypertension and Gaucher's disease. Patient was brought to the emergency room on 04/13/2018 for an evaluation of persistent diarrhea. His mom who is his primary caregiver, reported that patient had had loose stool for [address] of the abdomen and pelvis on admission showed a large amount of stool throughout the rectum with fecal impaction. Patient's mother reports that patient has had no obvious complaints of abdominal discomfort and has had no noted vomiting. She reports patient's last colonoscopy was done 5-6 years ago and was a normal exam per her recollection. Fleets mineral oil enema given this morning produced small amount of brown stool per patient's nurse. Upon rectal exam during consultation, I was able to remove a moderate amount of brown stool. Patient is taking GoLYTELY solution by mouth intermittently staff will follow up with additional fleets mineral oil enema this afternoon. Of note, patient's mother reporting that patient has had difficulty eating and swallowing for the last 6 months. She is unsure regarding amount of weight loss. States that she thinks that his difficulty swallowing is related to his advanced Parkinson's disease. States that she would like to discuss possible PEG tube placement at some point. <Leidy Rosas - Last Filed: 04/14/18 12:47> Review of Systems All other systems reviewed negative except as stated in HPI <Leidy Rosas - Last Filed: 04/14/18 12:47> PMFSH - History History Provided By: Family Member - Medical History Medical History: Medical History (Last Updated 04/13/18 @ 20:35 by Araceli Martinez MD) Hypertension Degenerative disc disease Dementia Parkinsonism - Surgical History Surgical History: Surgical History (Last Reviewed 04/13/18 @ 20:35 by Araceli Martinez MD) No history of previous surgery - Family History Family History: Family History (Last Reviewed 04/13/18 @ 20:35 by Araceli Martinez MD) Other Coronary artery disease Diabetes mellitus - Tobacco History Second Hand Smoke Exposure: No Tobacco Use In Past 30 Days: Yes Smoking Status: Former smoker Tobacco Type: Cigarettes - Alcohol History How Often Do You Have a Drink Containing Alcohol: Never - Substance Use History Substance History: No History of Abuse - Travel History Recent Travel in the [place] Within the Last 8 Weeks: No Recent Travel Out of the Country Within the Last 8 Weeks: No - Immunization History Tetanus Immunization: <5 Years <Leidy Rosas - Last Filed: 04/14/18 12:47> - Medical History Medical History: Medical History (Last Updated 04/13/18 @ 20:35 by Araceli Martinez MD) Hypertension Degenerative disc disease Dementia Parkinsonism - Surgical History Surgical History: Surgical History (Last Reviewed 04/13/18 @ 20:35 by Araceli Martinez MD) No history of previous surgery - Family History Family History: Family History (Last Reviewed 04/13/18 @ 20:35 by Araceli Martinez MD) Other Coronary artery disease Diabetes mellitus <Fran Perry - Last Filed: 04/14/18 21:12> Medications and Allergies Active Medications: Active Medications Amlodipine Besylate (Norvasc) 5 mg PO DAILY [facility] Aspirin (Ecotrin) 81 mg PO DAILY [facility] Last Admin: 04/14/18 08:50 Dose: 81 mg Carbidopa/Levodopa (Sinemet 25/250 Mg) 1 tab PO QID [facility] Last Admin: 04/14/18 12:24 Dose: Not Given Clonidine HCl (Catapres) 0.1 mg PO PRN PRN PRN Reason: b/p> 160/90 Last Admin: 04/14/18 06:30 Dose: 0.1 mg Donepezil HCl (Aricept) 10 mg PO [facility] Last Admin: 04/13/18 22:35 Dose: 10 mg Gabapentin (Neurontin) 300 mg PO DAILY@1300 [facility] Last Admin: 04/14/18 12:24 Dose: Not Given Gabapentin (Neurontin) 600 mg PO [facility] Gabapentin (Neurontin) 300 mg PO DAILY [facility] Last Admin: 04/14/18 08:51 Dose: 300 mg Mineral Oil (Fleet Mineral Oil Enema) 118 ml RECTAL Q4H [facility] Last Admin: 04/14/18 08:47 Dose: 118 ml Oxybutynin Chloride (Ditropan) 5 mg PO TID [facility] Last Admin: 04/14/18 12:19 Dose: 5 mg Pt Own: Droxidopa (400mg) 0 each PO BID [facility] Pt Own (Droxidopa [ Northera 200 Mg Capsule] 0 each PO BID [facility] Pyridostigmine [place] ([place]) 180 mg PO BID [facility] Last Admin: 04/14/18 08:56 Dose: 180 mg Sertraline HCl (Zoloft) 25 mg PO DAILY [facility] Last Admin: 04/14/18 08:51 Dose: 25 mg Sodium Chloride (Ns Flush) 2 ml IV.FLUSH BID [facility] Last Admin: 04/14/18 08:51 Dose: 2 ml Sodium Chloride (Ns Flush) 2 ml IV.FLUSH PRN PRN PRN Reason: FLUSH AFTER USING IV ACCESS Temazepam (Restoril) 30 mg PO [facility] Last Admin: 04/14/18 01:21 Dose: Not Given <Leidy Rosas - Last Filed: 04/14/18 12:47> Active Medications: Active Medications Aspirin (Ecotrin) 81 mg PO DAILY [facility] Last Admin: 04/14/18 08:50 Dose: 81 mg Carbidopa/Levodopa (Sinemet 25/250 Mg) 1 tab PO QID [facility] Last Admin: 04/14/18 17:18 Dose: 1 tab Clonidine HCl (Catapres) 0.1 mg PO PRN PRN PRN Reason: b/p> 160/90 Last Admin: 04/14/18 06:30 Dose: 0.1 mg Donepezil HCl (Aricept) 10 mg PO [facility] Last Admin: 04/13/18 22:35 Dose: 10 mg Enalaprilat (Vasotec Inj) 1.25 mg IV.PUSH Q6H PRN PRN Reason: SBP>150, DBP>90 Last Admin: 04/14/18 13:39 Dose: 1.25 mg Gabapentin (Neurontin) 300 mg PO DAILY@1300 [facility] Last Admin: 04/14/18 13:43 Dose: 300 mg Gabapentin (Neurontin) 600 mg PO [facility] Gabapentin (Neurontin) 300 mg PO DAILY [facility] Last Admin: 04/14/18 08:51 Dose: 300 mg Mineral Oil (Fleet Mineral Oil Enema) 118 ml RECTAL Q4H [facility] Last Admin: 04/14/18 17:21 Dose: 118 ml Oxybutynin Chloride (Ditropan) 5 mg PO TID [facility] Last Admin: 04/14/18 17:18 Dose: 5 mg Pt Own: Droxidopa (400mg) 0 each PO BID [facility] Pt Own (Droxidopa [ Northera 200 Mg Capsule] 0 each PO BID [facility] Pyridostigmine [place] (Mestinon) 180 mg PO BID [facility] Last Admin: 04/14/18 08:56 Dose: 180 mg Sertraline HCl (Zoloft) 25 mg PO DAILY [facility] Last Admin: 04/14/18 08:51 Dose: 25 mg Sodium Chloride (Ns Flush) 2 ml IV.FLUSH BID [facility] Last Admin: 04/14/18 08:51 Dose: 2 ml Sodium Chloride (Ns Flush) 2 ml IV.FLUSH PRN PRN PRN Reason: FLUSH AFTER USING IV ACCESS Temazepam (Restoril) 30 mg PO [facility] Last Admin: 04/14/18 01:21 Dose: Not Given <Fran Perry E - Last Filed: 04/14/18 21:12> Allergies Allergy/AdvReac Type Severity Reaction Status Date / Time No Known Allergies Allergy Verified 04/13/18 13:25 Home Medications Medication Instructions Recorded Confirmed Type aspirin [Aspir-Low] 81 mg PO DAILY 01/29/18 04/13/18 History donepezil [Aricept] 10 mg PO HS 01/29/18 04/13/18 History oxybutynin chloride 5 mg PO TID 01/29/18 04/13/18 History temazepam [Restoril] 30 mg PO HS 01/29/18 04/13/18 History carbidopa-levodopa [Sinemet] 1 tab PO QID 02/02/18 04/13/18 History gabapentin 600 mg PO HS 02/02/18 04/13/18 History gabapentin See Label Instructions .ROUTE 02/02/18 04/14/18 History .COMPLEX pyridostigmine bromide 180 mg PO BID 02/02/18 04/13/18 History clonidine HCl 0.1 mg PO PRN PRN 04/08/18 04/13/18 History cyproheptadine 4 mg PO BID 04/08/18 04/13/18 History droxidopa 400 mg PO BID 04/08/18 04/13/18 History sertraline 25 mg PO DAILY 04/08/18 04/13/18 History droxidopa [Northera] See Label Instructions .ROUTE 04/14/18 04/14/18 History .COMPLEX Exam Vital signs: Vital Signs 04/13/18 13:13 04/13/18 15:13 04/13/18 18:22 Temperature 97.3 F L Pulse Rate 97 H 89 91 H Respiratory Rate 16 17 17 Blood Pressure 76/53 L 106/66 169/101 H Pulse Oximetry 93 L 98 98 04/13/18 19:24 04/13/18 20:00 04/14/18 00:00 Temperature 97.7 F 98.4 F Pulse Rate 86 87 88 Respiratory Rate 18 16 19 Blood Pressure 188/107 H 129/93 H Pulse Oximetry 97 99 97 04/14/18 04:00 04/14/18 07:00 04/14/18 08:00 Temperature 97.3 F L 97.9 F Pulse Rate 89 95 H Respiratory Rate 18 12 20 Blood Pressure 165/105 H 168/94 H Pulse Oximetry 98 94 L 04/14/18 12:17 Temperature Pulse Rate Respiratory Rate 12 Blood Pressure Pulse Oximetry Intake & Output 04/13/18 04/14/18 04/14/18 18:59 06:59 18:59 Intake Total 1000 / 1000 1000 / 1000 Balance 1000 / 1000 1000 / 1000 Weight 45.359 kg 55.8 kg Intake: IV 1000 / 1000 NS Inj 1,000 ML @ Wide Open IV. 1000 / 1000 SIG BOLUS ONE Rx#:[id number] Oral 1000 / 1000 Other: # Voids 3 # Incontinent Voids 4 Date of Last Bowel Movement 04/14/18 # Bowel Movements 2 # Incontinent Bowel Movements 3 Weight On Admission 52.6 kg - Constitutional no acute distress, chronically ill appearing - Routine HEENT Exam Head: Present: normocephalic - Routine Respiratory Exam Present: CTA bilaterally. Absent: accessory muscle use - Routine Cardiovascular Exam Present: RRR - Routine Abdominal Exam Present: soft, normoactive bowel sounds. Absent: tenderness, distended, guarding, firm - Routine Extremities Exam Present: pulses intact. Absent: edema - Routine Skin Exam Present: dry, warm - Routine Neurological Exam Present: alert <Rosas,Leidy - Last Filed: 04/14/18 12:47> Vital signs: Vital Signs 04/14/18 00:00 04/14/18 04:00 04/14/18 07:00 Temperature 98.4 F 97.3 F L Pulse Rate 88 89 Respiratory Rate 19 18 12 Blood Pressure 129/93 H 165/105 H Pulse Oximetry 97 98 04/14/18 08:00 04/14/18 12:00 04/14/18 12:17 Temperature 97.9 F 97.6 F Pulse Rate 95 H 90 Respiratory Rate 20 20 12 Blood Pressure 168/94 H 98/61 L Pulse Oximetry 94 L 98 04/14/18 15:35 Temperature 97.8 F Pulse Rate 95 H Respiratory Rate 20 Blood Pressure 147/89 H Pulse Oximetry 99 Intake & Output 04/14/18 04/14/18 04/15/18 06:59 18:59 06:59 Intake Total 1000 / 1000 Output Total 5 / 5 Balance 1000 / 1000 -5 / -5 Weight 55.8 kg Intake: Oral 1000 / 1000 Output: Urine / Stool Other: # Voids 3 # Incontinent Voids 4 Date of Last Bowel Movement 04/14/18 04/14/18 # Bowel Movements 2 1 # Incontinent Bowel Movements 3 Weight On Admission 52.6 kg <Fran Perry E - Last Filed: 04/14/18 21:12> Results - Labs CBC & Chem 7: 04/13/18 15:41 04/14/18 08:40 Labs: Laboratory Results - last 24 hr 04/13/18 04/13/18 04/14/18 15:41 15:41 08:40 WBC 6.1 RBC 4.89 Hgb 14.5 Hct 42.5 MCV 86.9 MCH 29.6 MCHC 34.1 RDW 13.9 Plt Count 141 L MPV 10.5 Neut % (Auto) 75.3 H Lymph % (Auto) 16.5 [place] % (Auto) 7.1 Eos % (Auto) 0.7 Baso % (Auto) 0.4 Neut # (Auto) 4.6 Lymph # (Auto) 1.0 [place] # (Auto) 0.4 Eos # (Auto) 0.0 Baso # (Auto) 0.0 WBC Differential . Differential Comment Auto diff final Sodium 140 140 Potassium 3.3 L 3.7 Chloride 102 108 H Carbon Dioxide 28.2 26.1 Anion Gap 10 6 BUN 19 H 15 Creatinine 1.13 0.53 L Estimated GFR 67 L Greater than 89 Random Glucose 99 98 Calcium 8.9 8.7 Magnesium 2.2 Total Bilirubin 1.1 H AST 22 ALT 12 Alkaline Phosphatase 81 Total Protein 8.0 Albumin 3.8 Lipase 99 TSH 1.500 - Imaging Impressions Chest X-Ray 04/13/18 15:20 CONCLUSION: No acute cardiopulmonary disease. Abdomen/Pelvis CT 04/13/18 16:25 CONCLUSION: Rectal fecal impaction. <Leidy Rosas - Last Filed: 04/14/18 12:47> - Labs CBC & Chem 7: 04/13/18 15:41 04/14/18 08:40 Labs: Laboratory Results - last 24 hr 04/14/18 04/14/18 08:40 14:56 Sodium 140 Potassium 3.7 Chloride 108 H Carbon Dioxide 26.1 Anion Gap 6 BUN 15 Creatinine 0.53 L Estimated GFR Greater than 89 Random Glucose 98 Calcium 8.7 Stl C.difficile DNA Amp Negative St C. diff Tox Epid 027 Negative - Imaging Impressions Abdomen X-Ray 04/14/18 00:00 CONCLUSION: Rectal fecal impaction <Fran Perry - Last Filed: 04/14/18 21:12> Assessment and Plan (1) Constipation Status: Acute Code(s): K59.00 - Constipation, unspecified (2) Fecal impaction in rectum Status: Acute Code(s): K56.41 - Fecal impaction - Plan his is a 58-year-old male patient with a past medical history significant for Parkinson's disease, dementia, neuropathy, hypertension and Gaucher's disease. Patient was brought to the emergency room on 04/13/2018 for an evaluation of persistent diarrhea. His mom who is his primary caregiver, reported that patient had had loose stool for [address] of the abdomen and pelvis on admission showed a large amount of stool throughout the rectum with fecal impaction. Patient's mother reports that patient has had no obvious complaints of abdominal discomfort and has had no noted vomiting. Fleets mineral oil enema given this morning produced small amount of brown stool per patient's nurse. Upon rectal exam during consultation, I was able to remove a moderate amount of brown stool. Patient is taking GoLYTELY solution by mouth intermittently staff will follow up with additional fleets mineral oil enema this afternoon. Constipation/fecal impaction 04/13/2018 CT of abdomen and pelvis revealed the following:Rectal fecal impaction GoLYTELY solution being administered Fleets enema mineral oil, next administration 1 PM today Small amount of brown stool noted after enema administered this a.m., I disimpacted patient for moderate amount of soft brown stool. Of note, patient's mother/caregiver states patient has been having some difficulty swallowing with decreased appetite for the past 6 months. She is unsure if there has been significant weight loss however she would like to discuss possible PEG tube placement at some point. Plan -Continue bowel regimen -Mineral oil fleets enemas every 4 hours -Monitor fecal output -GoLYTELY solution as tolerated -Supportive care -Further recommendations to follow based on patient status and findings This patient was seen by myself and Dr. Perry and this note is written on his behalf - Attending Attestation Dr. Perry <Leidy Rosas - Last Filed: 04/14/18 12:47> (1) Constipation Status: Acute Code(s): K59.00 - Constipation, unspecified (2) Fecal impaction in rectum Status: Acute Code(s): K56.41 - Fecal impaction - Plan Patient seen and examined Agree with above Continue with current supportive care Monitor labs We will consider EGD with PEG placement and colonoscopy on Thursday, this to be discussed with his mom tomorrow <Fran Perry E - Last Filed: 04/14/18 21:12> <Leidy Rosas - Last Filed: 04/14/18 12:47> (1) Constipation Qualifiers: Constipation type: unspecified constipation type Qualified Code(s): K59.00 - Constipation, unspecified <Fran Perry - Last Filed: 04/14/18 21:12> (1) Constipation Qualifiers: Constipation type: unspecified constipation type Qualified Code(s): K59.00 - Constipation, unspecified
--- NOTE | 2018-04-14 17:11 | XR ---
EXAM DATE: 04/14/2018 12:00 AM EDT AGE/SEX: 58 years / Male INDICATIONS: Constipation for 1 week CLINICAL DATA: This is the patient's initial encounter. Patient reports that signs and symptoms have been present for 1 week and indicates a pain score of Nonresponsive. MEDICAL/SURGICAL HISTORY: Dementia. Parkinson's disease. None. COMPARISON: [facility] [place], CT ABDOMEN & PELVIS W CONTRAST, 04/13/2018. . FINDINGS: The rectosigmoid is prominently dilated with formed stool. Stool is present through the remainder of the colon. No small bowel dilatation is present. There are no suspicious calcific densities. There ar e degenerative changes in the spine and hips. CONCLUSION: Rectal fecal impaction Electronically signed by: Anson Andrade MD 04/14/2018 5:10 PM EDT
[2018-04-15] MEDS: Mineral Oil Enema 118 ML Bottle RECTAL SCH ×5 (03:14→19:01)
[2018-04-15 08:26] LABS: Baso % (Auto) 0.7 % (0.0-2.0); Eos % (Auto) 0.5 % (0.0-4.0); Hematocrit 40.5 % (39.0-51.0); Lymph # (Auto) 1.1 th/mm3 (1.0-4.8); Lymph % (Auto) 19.1 % (9.0-44.0); Mean Corpuscular HGB Conc 34.5 % (32.0-36.0); Mean Corpuscular Hemoglobin 29.4 pg (27.0-34.0); Mean Corpuscular Volume 85.2 fL (80.0-100.0); Mean Platelet Volume 10.3 fL (7.0-11.0); Mono # (Auto) 0.4 th/mm3 (0.0-0.9); Mono % (Auto) 6.1 % (0.0-8.0); Neut # (Auto) 4.3 th/mm3 (1.8-7.7); Neut % (Auto) 73.6 % (16.0-70.0); Platelet Count 145 th/mm3 (150-450); Red Blood Count 4.75 mil/mm3 (4.50-5.90); Red Cell Distribution Width 13.4 % (11.6-17.2); White Blood Count 5.8 th/mm3 (4.0-11.0)
[2018-04-15 08:57] LABS: Albumin 3.6 g/dL (3.4-5.0); Anion Gap 9 meq/L (5-15); Aspartate Aminotransferase 20 U/L (15-37); Blood Urea Nitrogen 20 mg/dL (7-18); Calcium 8.9 mg/dL (8.5-10.1); Carbon Dioxide 29.3 meq/L (21.0-32.0); Chloride 104 meq/L (98-107); Glomerular Filtration Rate Greater Than 89 mL/min (>89); Glucose,Random 83 mg/dL (74-106); Potassium 3.7 meq/L (3.5-5.1); Sodium 142 meq/L (136-145)
[2018-04-15 08:58] LABS: Alanine Aminotransferase 14 U/L (12-78)
[2018-04-15 09:00] LABS: Alkaline Phosphatase 77 U/L (45-117); Total Protein 7.8 g/dL (6.4-8.2)
[2018-04-15] MEDS: Pyridostigmine Bromide 60 MG Tablet PO SCH ×2 (09:50→20:56)
[2018-04-15] MEDS: Sertraline 50 MG Tablet PO SCH (09:50)
[2018-04-15] MEDS: Gabapentin 300 MG Capsule PO SCH ×3 (09:52→20:53)
--- NOTE | 2018-04-15 11:54 | P.PNGI ---
Subjective Interval history: Pt resting in bed, confused. Mother at bedside. Pt has had enemas with some BMs. He will not take anything by mouth, according to his mother she tried to give him a sip of water and he refuses to open his mouth. She would like to pursue feeding tube. She is legally blind and takes care of the pt at home. Discussed case with Dr. Contreras, pt will have home health after DC. <Soha Corral - Last Filed: 04/15/18 12:49> Physical Exam Vital signs: Vital Signs 04/14/18 12:00 04/14/18 12:17 04/14/18 15:35 Temperature 97.6 F 97.8 F Pulse Rate 90 95 H Respiratory Rate 20 12 20 Blood Pressure 98/61 L 147/89 H Pulse Oximetry 98 99 04/14/18 20:00 04/15/18 00:00 04/15/18 04:00 Temperature 97.2 F L 98.8 F 98.2 F Pulse Rate 86 102 H 82 Respiratory Rate 18 18 18 Blood Pressure 113/76 145/90 H 140/86 Pulse Oximetry 97 98 99 04/15/18 08:00 Temperature 97.6 F Pulse Rate 99 H Respiratory Rate 20 Blood Pressure 158/96 H Pulse Oximetry 97 Intake & Output 04/14/18 04/15/18 04/15/18 18:59 06:59 18:59 Output Total 5 / 5 Balance -5 / -5 Weight 51.9 kg Output: Urine 4 / 4 Stool 1 / 1 Other: # Incontinent Voids 2 Date of Last Bowel Movement 04/14/18 04/15/18 # Bowel Movements 1 2 - Constitutional no acute distress, thin - Routine HEENT Exam Head: Present: normocephalic, atraumatic - Routine Respiratory Exam Absent: accessory muscle use - Routine Abdominal Exam Present: soft, normoactive bowel sounds. Absent: tenderness, distended - Routine Skin Exam Present: dry, warm - Routine Neurological Exam Present: alert. Absent: oriented X3 <Soha Corral - Last Filed: 04/15/18 12:49> Vital signs: Vital Signs 04/15/18 00:00 04/15/18 04:00 04/15/18 08:00 Temperature 98.8 F 98.2 F 97.6 F Pulse Rate 102 H 82 99 H Respiratory Rate 18 18 16 Blood Pressure 145/90 H 140/86 158/96 H Pulse Oximetry 98 99 97 04/15/18 12:00 04/15/18 16:00 04/15/18 20:00 Temperature 97.9 F 97.6 F 97.6 F Pulse Rate 89 98 H 84 Respiratory Rate 18 18 Blood Pressure 165/96 H 105/73 142/96 H Pulse Oximetry 97 97 98 Intake & Output 04/15/18 04/15/18 04/16/18 06:59 18:59 06:59 Weight 51.9 kg Other: # Incontinent Voids 2 3 Date of Last Bowel Movement 04/15/18 04/15/18 # Bowel Movements 2 <Fran Perry - Last Filed: 04/15/18 21:37> Results - Labs CBC & Chem 7: 04/15/18 07:20 04/15/18 07:20 Laboratory Results - last 24 hr 04/14/18 04/15/18 04/15/18 14:56 07:20 07:20 WBC 5.8 RBC 4.75 Hgb 14.0 Hct 40.5 MCV 85.2 MCH 29.4 MCHC 34.5 RDW 13.4 Plt Count 145 L MPV 10.3 Neut % (Auto) 73.6 H Lymph % (Auto) 19.1 [place] % (Auto) 6.1 Eos % (Auto) 0.5 Baso % (Auto) 0.7 Neut # (Auto) 4.3 Lymph # (Auto) 1.1 [place] # (Auto) 0.4 Eos # (Auto) 0.0 Baso # (Auto) 0.0 WBC Differential . Differential Comment Auto diff final Sodium 142 Potassium 3.7 Chloride 104 Carbon Dioxide 29.3 Anion Gap 9 BUN 20 H Creatinine 0.75 Estimated GFR Greater than 89 Random Glucose 83 Calcium 8.9 Total Bilirubin 1.1 H AST 20 ALT 14 Alkaline Phosphatase 77 Total Protein 7.8 Albumin 3.6 Stl C.difficile DNA Amp Negative St C. diff Tox Epid 027 Negative Microbiology 04/14/18 14:56 Stool Stool for WBCs - Final No WBC's seen - Imaging Impressions Abdomen X-Ray 04/14/18 00:00 CONCLUSION: Rectal fecal impaction <Soha Corral - Last Filed: 04/15/18 12:49> - Labs CBC & Chem 7: 04/15/18 07:20 04/15/18 07:20 Laboratory Results - last 24 hr 04/15/18 04/15/18 07:20 07:20 WBC 5.8 RBC 4.75 Hgb 14.0 Hct 40.5 MCV 85.2 MCH 29.4 MCHC 34.5 RDW 13.4 Plt Count 145 L MPV 10.3 Neut % (Auto) 73.6 H Lymph % (Auto) 19.1 [place] % (Auto) 6.1 Eos % (Auto) 0.5 Baso % (Auto) 0.7 Neut # (Auto) 4.3 Lymph # (Auto) 1.1 [place] # (Auto) 0.4 Eos # (Auto) 0.0 Baso # (Auto) 0.0 WBC Differential . Differential Comment Auto diff final Sodium 142 Potassium 3.7 Chloride 104 Carbon Dioxide 29.3 Anion Gap 9 BUN 20 H Creatinine 0.75 Estimated GFR Greater than 89 Random Glucose 83 Calcium 8.9 Total Bilirubin 1.1 H AST 20 ALT 14 Alkaline Phosphatase 77 Total Protein 7.8 Albumin 3.6 Microbiology 04/14/18 14:56 Stool Stool for WBCs - Final No WBC's seen <Fran Perry E - Last Filed: 04/15/18 21:37> Assessment and Plan (1) Constipation Status: Acute Code(s): K59.00 - Constipation, unspecified (2) Fecal impaction in rectum Status: Acute Code(s): K56.41 - Fecal impaction - Plan Assessment: - Constipation/fecal impaction CT abdomen/pelvis W IV contrast (04/13) and KUB () consistent with rectal fecal impaction. S/P bedside manual disimpaction, some Golytely (as pt would take) and fleets enema. Pt has had a few BMs. - Poor PO intake with history of Parkinsons disease and dementia- appears to have failure to thrive. Pts mother is his primary animal caregiver and does not want him a nursing facility and is not open to palliative management. she would like to pursue PEG tube. discussed with Dr. Contreras, he is planning for home healthcare after DC to assist in management of PEG tube. Plan: EGD with PEG tomorrow Obtain consent Ancef internal medicine nurse practitioner Dietary consult for TF recommendations Flex sig tomorrow (pt will not take prep for colonoscopy and will not tolerate NG tube) Soap suds enema x 2 in AM Further recommendations based on course Pt has been seen and examined by myself and Dr. perry and this note is written on his behalf <Soha Corral - Last Filed: 04/15/18 12:49> (1) Constipation Status: Acute Code(s): K59.00 - Constipation, unspecified (2) Fecal impaction in rectum Status: Acute Code(s): K56.41 - Fecal impaction - Plan Patient seen and examined Agree with above Continue with current supportive care Monitor labs Family wants to hold off on PEG placement until assistance has been assured prior to discharge <Fran Perry - Last Filed: 04/15/18 21:37> <Soha Corral - Last Filed: 04/15/18 12:49> (1) Constipation Qualifiers: Constipation type: unspecified constipation type Qualified Code(s): K59.00 - Constipation, unspecified <Fran Perry E - Last Filed: 04/15/18 21:37> (1) Constipation Qualifiers: Constipation type: unspecified constipation type Qualified Code(s): K59.00 - Constipation, unspecified
--- NOTE | 2018-04-15 13:44 | P.PNIM ---
Subjective Interval history: Discussed with the patient's mother at bedside. She is concerned about not being able to manage tube feeding at home because she is blind. She reports she will need assistance and will need a pump for continuous feeding. Physical Exam Vital signs: Vital Signs 04/14/18 15:35 04/14/18 20:00 04/15/18 00:00 Temperature 97.8 F 97.2 F L 98.8 F Pulse Rate 95 H 86 102 H Respiratory Rate 20 18 18 Blood Pressure 147/89 H 113/76 145/90 H Pulse Oximetry 99 97 98 04/15/18 04:00 04/15/18 08:00 04/15/18 12:00 Temperature 98.2 F 97.6 F 97.9 F Pulse Rate 82 99 H 89 Respiratory Rate 18 20 18 Blood Pressure 140/86 158/96 H 165/96 H Pulse Oximetry 99 97 97 Intake & Output 04/14/18 04/15/18 04/15/18 18:59 06:59 18:59 Output Total 5 / 5 Balance -5 / -5 Weight 51.9 kg Output: Urine 4 / 4 Stool / Other: # Incontinent Voids 2 Date of Last Bowel Movement 04/14/18 04/15/18 # Bowel Movements 1 2 Narrative: GENERAL: Cachectic looking male, lying in bed in no acute distress. CARDIOVASCULAR: Regular rate and rhythm without murmurs, gallops, or rubs. RESPIRATORY: Breath sounds equal bilaterally. No accessory muscle use. GASTROINTESTINAL: Abdomen soft, non-tender, nondistended. NEURO/PSYCH: AAOx2, no focal deficits, motor strength 4/5 x4, pleasant/calm. Results - Labs CBC & Chem 7: 04/15/18 07:20 04/15/18 07:20 Laboratory Results - last 24 hr 04/14/18 04/15/18 04/15/18 14:56 07:20 07:20 WBC 5.8 RBC 4.75 Hgb 14.0 Hct 40.5 MCV 85.2 MCH 29.4 MCHC 34.5 RDW 13.4 Plt Count 145 L MPV 10.3 Neut % (Auto) 73.6 H Lymph % (Auto) 19.1 Wolfe % (Auto) 6.1 Eos % (Auto) 0.5 Baso % (Auto) 0.7 Neut # (Auto) 4.3 Lymph # (Auto) 1.1 Wolfe # (Auto) 0.4 Eos # (Auto) 0.0 Baso # (Auto) 0.0 WBC Differential . Differential Comment Auto diff final Sodium 142 Potassium 3.7 Chloride 104 Carbon Dioxide 29.3 Anion Gap 9 BUN 20 H Creatinine 0.75 Estimated GFR Greater than 89 Random Glucose 83 Calcium 8.9 Total Bilirubin 1.1 H AST 20 ALT 14 Alkaline Phosphatase 77 Total Protein 7.8 Albumin 3.6 Stl C.difficile DNA Amp Negative St C. diff Tox Epid 027 Negative Microbiology 04/14/18 14:56 Stool Stool for WBCs - Final No WBC's seen - Imaging Impressions Abdomen X-Ray 04/14/18 00:00 CONCLUSION: Rectal fecal impaction Assessment and Plan - Assessment (1) Dementia Code(s): F03.90 - Unspecified dementia without behavioral disturbance Status: Chronic (2) Constipation Code(s): K59.00 - Constipation, unspecified Status: Acute (3) Fecal impaction in rectum Code(s): K56.41 - Fecal impaction Status: Acute - Plan 58-year-old Male with PMHx of Parkinson's disease, Dementia, Neuropathy and HTN presents to the emergency department for evaluation of persistent diarrhea likely secondary to fecal impaction. Per CT of the abdomen/pelvis abundant stool throughout with rectal fecal impaction. 1. Severe dysphasia/failure to thrive/severe protein calorie malnutrition/ diarrhea Likely Secondary to Fecal impaction CT of the abdomen/pelvis shows a colon with abundant stool throughout with rectal fecal impaction Gastroenterology consulted Some bowel movements with enema. Continue enema per GI. Plan for flex sig tomorrow. GI planning for EGD and PEG tomorrow. Extensive discussion with the patient's mother. She wants to make sure she will have the help needed at home for continuous feeding. Discussed with major case detective to contact the insurance company to ensure the patient's family can receive appropriate support. Discussed with GI as well. Dietitian consulted. Tube feeding to be started after PEG placement. 2. Hypertension Refusing home clonidine which is PRN for SBP>160, DBP>100 Continue Vasotec IV PRN and home ASA Cont. to monitor 3. Dementia/Parkinson's disease/Anxiety/Insomnia Continue home medications, Sinemet, Aricept, Isac, Oxybutynin, Mestinon, Zoloft , and Temazepam Already has HH in place daily per mother 4. Hypokalemia, resolved 5. Dispo: Pending PEG placement and successful transition to home. Will need home health and feeding pump for home. Code Status: full Discussed Condition With: patient, mother, RN and CM (2) Constipation Qualifiers: Constipation type: unspecified constipation type Qualified Code(s): K59.00 - Constipation, unspecified
[2018-04-15] MEDS ORDERED: Chlorhexidine Gluconate 2% 1 Pack (2 Cloths) TOPICAL ONE (14:08)
[2018-04-15] MEDS ORDERED: Metoprolol Tartrate 25 MG Tablet PO ONE (14:08)
[2018-04-15] MEDS ORDERED: Sodium Chlor 0.9% Inj 500 ML IV.SIG ONE (15:00)
[2018-04-15] MEDS: Temazepam 15 MG Capsule PO SCH (20:51)
[2018-04-16] MEDS: Mineral Oil Enema 118 ML Bottle RECTAL SCH ×5 (04:35→21:09)
[2018-04-16] MEDS: Sertraline 50 MG Tablet PO SCH (09:21)
[2018-04-16] MEDS: Pyridostigmine Bromide 60 MG Tablet PO SCH ×2 (09:21→21:09)
[2018-04-16] MEDS: Gabapentin 300 MG Capsule PO SCH ×3 (09:22→21:09)
--- NOTE | 2018-04-16 14:15 | P.PNIM ---
Subjective Interval history: Discussed with mother at bedside. She is not willing to give consent for PEG until she is sure the insurance company will cover for pump and tube feeding at home. Physical Exam Vital signs: Vital Signs 04/15/18 16:00 04/15/18 20:00 04/16/18 00:00 Temperature 97.6 F 97.6 F 97.8 F Pulse Rate 98 H 84 80 Respiratory Rate 18 18 20 Blood Pressure 105/73 142/96 H 110/76 Pulse Oximetry 97 98 96 04/16/18 04:00 04/16/18 08:00 04/16/18 12:00 Temperature 97.7 F 98.2 F 97.4 F L Pulse Rate 82 81 85 Respiratory Rate 20 16 16 Blood Pressure 118/74 132/78 147/97 H Pulse Oximetry 96 98 95 Intake & Output 04/15/18 04/16/18 04/16/18 18:59 06:59 18:59 Intake Total 60 / 60 Balance 60 / 60 Weight 50.8 kg Intake: Oral 60 / 60 Other: # Incontinent Voids 3 Date of Last Bowel Movement 04/15/18 04/15/18 04/15/18 Narrative: GENERAL: Cachectic looking male, lying in bed in no acute distress. CARDIOVASCULAR: Regular rate and rhythm without murmurs, gallops, or rubs. RESPIRATORY: Breath sounds equal bilaterally. No accessory muscle use. GASTROINTESTINAL: Abdomen soft, non-tender, nondistended. NEURO/PSYCH: AAOx2, no focal deficits, motor strength 4/5 x4, pleasant/calm. Results - Labs CBC & Chem 7: 04/15/18 07:20 04/15/18 07:20 Assessment and Plan - Assessment (1) Dementia Code(s): F03.90 - Unspecified dementia without behavioral disturbance Status: Chronic (2) Constipation Code(s): K59.00 - Constipation, unspecified Status: Acute (3) Fecal impaction in rectum Code(s): K56.41 - Fecal impaction Status: Acute - Plan 58-year-old Male with PMHx of Parkinson's disease, Dementia, Neuropathy and HTN presents to the emergency department for evaluation of persistent diarrhea likely secondary to fecal impaction. Per CT of the abdomen/pelvis abundant stool throughout with rectal fecal impaction. 1. Severe dysphasia/failure to thrive/severe protein calorie malnutrition/ diarrhea Likely Secondary to Fecal impaction CT of the abdomen/pelvis shows a colon with abundant stool throughout with rectal fecal impaction Gastroenterology consulted Some bowel movements with enema. Continue enema per GI. Plan for flex sig tomorrow. GI planning for EGD and PEG, however the patient's mother wants to hold off until she can make sure the insurance company can provide pump and feeding tube supplies at home.. Extensive discussion with the patient's mother. She wants to make sure she will have the help needed at home for continuous feeding. Discussed with case checker to contact the insurance company to ensure the patient's family can receive appropriate support. Per case management, the [employer] case management has been called and would not be able to return the call until after 5 PM today. Dietitian consulted. Start IV fluid 2. Hypertension Refusing home clonidine which is PRN for SBP>160, DBP>100 Continue Vasotec IV PRN and home ASA Cont. to monitor 3. Dementia/Parkinson's disease/Anxiety/Insomnia Continue home medications, Sinemet, Aricept, Isac, Oxybutynin, Mestinon, Zoloft , and Temazepam Already has HH in place daily per mother 4. Hypokalemia, resolved 5. Dispo: Pending PEG placement and successful transition to home. Will need home health and feeding pump for home. Code Status: full Discussed Condition With: patient, mother, RN and CM (2) Constipation Qualifiers: Constipation type: unspecified constipation type Qualified Code(s): K59.00 - Constipation, unspecified
--- NOTE | 2018-04-16 16:42 | P.PNGI ---
Subjective Interval history: Patient laying supine in bed. Mom at bedside stating awaiting outpatient case manager to arrange home health care to manage tube feeding infusion pump. At that time she will give consent for PEG placement. <Leidy Rosas - Last Filed: 04/16/18 16:46> Physical Exam Vital signs: Vital Signs 04/15/18 20:00 04/16/18 00:00 04/16/18 04:00 Temperature 97.6 F 97.8 F 97.7 F Pulse Rate 84 80 82 Respiratory Rate 18 20 20 Blood Pressure 142/96 H 110/76 118/74 Pulse Oximetry 98 96 96 04/16/18 08:00 04/16/18 12:00 Temperature 98.2 F 97.4 F L Pulse Rate 81 85 Respiratory Rate 16 16 Blood Pressure 132/78 147/97 H Pulse Oximetry 98 95 Intake & Output 04/15/18 04/16/18 04/16/18 18:59 06:59 18:59 Intake Total 60 / 60 Balance 60 / 60 Weight 50.8 kg Intake: Oral 60 / 60 Other: # Incontinent Voids 3 Date of Last Bowel Movement 04/15/18 04/15/18 04/15/18 - Constitutional no acute distress, chronically ill appearing - Routine HEENT Exam Head: Present: normocephalic - Routine Respiratory Exam Present: CTA bilaterally. Absent: accessory muscle use - Routine Abdominal Exam Present: soft, normoactive bowel sounds. Absent: tenderness, distended, guarding, firm - Routine Extremities Exam Absent: edema - Routine Skin Exam Present: dry, warm - Routine Neurological Exam Present: alert - Detailed Neurological Exam: Coma Scale Verbal Response: Confused <Leidy Rosas - Last Filed: 04/16/18 16:46> Vital signs: Vital Signs 04/16/18 00:00 04/16/18 04:00 04/16/18 08:00 Temperature 97.8 F 97.7 F 98.2 F Pulse Rate 80 82 81 Respiratory Rate 20 20 16 Blood Pressure 110/76 118/74 132/78 Pulse Oximetry 96 96 98 04/16/18 12:00 04/16/18 16:00 Temperature 97.4 F L 97.6 F Pulse Rate 85 85 Respiratory Rate 16 14 Blood Pressure 147/97 H 148/100 H Pulse Oximetry 95 98 Intake & Output 10/04/16/18 04/17/18 06:59 18:59 06:59 Intake Total 60 / 60 Balance 60 / 60 Weight 50.8 kg Intake: Oral 60 / 60 Other: Date of Last Bowel Movement 04/15/18 04/15/18 <Fran Perry - Last Filed: 04/16/18 21:45> Results - Labs CBC & Chem 7: 04/15/18 07:20 04/15/18 07:20 <Leidy Rosas - Last Filed: 04/16/18 16:46> - Labs CBC & Chem 7: 04/15/18 07:20 04/15/18 07:20 <Fran Perry E - Last Filed: 04/16/18 21:45> Assessment and Plan (1) Constipation Status: Acute Code(s): K59.00 - Constipation, unspecified (2) Fecal impaction in rectum Status: Acute Code(s): K56.41 - Fecal impaction - Plan 04/16/2018 Constipation/fecal impaction Nursing reports patient had 3 loose to soft bowel movements today. Will order KUB in the morning Poor p.o. intake Patient's mother reports patient has had difficulty swallowing for months and she would like for patient to have PEG tube placement. Patient's mother is legally blind and states she would like to pursue PEG tube placement as long as case management can arrange home health care to assist with the management of PEG tube and infusion pump for feedings. Plan -Awaiting confirmation of home health services for assistance with PEG tube and infusion pump for feedings -Planning for EGD/PEG placement -Dietary consult for recommendations -KUB in am -Supportive care -Consider IV hydration -Further recommendations to follow This patient has been seen by myself and Dr. Perry and this note is written on his behalf - Attending Attestation Dr. Perry <Leidy Rosas - Last Filed: 04/16/18 16:46> (1) Constipation Status: Acute Code(s): K59.00 - Constipation, unspecified (2) Fecal impaction in rectum Status: Acute Code(s): K56.41 - Fecal impaction - Plan Patient seen and examined Agree with above history and physical Monitor labs Continue with current supportive care <Fran Perry E - Last Filed: 04/16/18 21:45> <Leidy Rosas - Last Filed: 04/16/18 16:46> (1) Constipation Qualifiers: Constipation type: unspecified constipation type Qualified Code(s): K59.00 - Constipation, unspecified <Fran Perry E - Last Filed: 04/16/18 21:45> (1) Constipation Qualifiers: Constipation type: unspecified constipation type Qualified Code(s): K59.00 - Constipation, unspecified
[2018-04-16] MEDS: KCL 10 mEq/D5W/NaCl 0.45% Inj 1,000 ML IV.CONT SCH (18:01)
[2018-04-16] MEDS: Temazepam 15 MG Capsule PO SCH (21:09)
[2018-04-17] MEDS: Mineral Oil Enema 118 ML Bottle RECTAL SCH ×3 (00:05→20:03)
[2018-04-17] MEDS: KCL 10 mEq/D5W/NaCl 0.45% Inj 1,000 ML IV.CONT SCH ×3 (01:59→23:27)
[2018-04-17] MEDS: Sertraline 50 MG Tablet PO SCH (08:55)
[2018-04-17] MEDS: Pyridostigmine Bromide 60 MG Tablet PO SCH ×2 (08:55→20:03)
[2018-04-17] MEDS: Gabapentin 300 MG Capsule PO SCH ×3 (08:56→20:03)
--- NOTE | 2018-04-17 14:44 | P.PNIM ---
Subjective Interval history: No new issues. Discussed with the patient's mother at bedside. We are still waiting for the case fitter from the patient's insurance company at this time. Physical Exam Vital signs: Vital Signs 04/16/18 16:00 04/16/18 20:00 04/17/18 00:05 Temperature 97.6 F 97.6 F 97.4 F L Pulse Rate 85 79 77 Respiratory Rate 14 18 18 Blood Pressure 148/100 H 111/63 151/94 H Pulse Oximetry 98 97 98 04/17/18 04:00 04/17/18 08:00 04/17/18 12:00 Temperature 97.3 F L 97.4 F L 97.3 F L Pulse Rate 63 69 91 H Respiratory Rate 18 20 20 Blood Pressure 148/90 H 155/95 H 101/67 Pulse Oximetry 97 95 96 Intake & Output 04/16/18 04/17/18 04/17/18 18:59 06:59 18:59 Intake Total 1100 / 1100 1000 / 1000 Output Total 3 / 3 Balance 1100 / 1100 997 / 997 Weight 49.7 kg Intake: IV 850 / 850 1000 / 1000 D5W/1/2NS + KCL 10 mEq Inj 1, 850 / 850 1000 / 1000 000 ML @ 100 mls/hr IV.CONT . Q10H [facility] Rx#:[id number] Oral 250 / 250 Output: Urine 2 / 2 Stool 1 / Other: # Incontinent Voids 4 Date of Last Bowel Movement 04/15/18 04/17/18 04/17/18 # Incontinent Bowel Movements 2 Narrative: GENERAL: Cachectic looking male, lying in bed in no acute distress. CARDIOVASCULAR: Regular rate and rhythm without murmurs, gallops, or rubs. RESPIRATORY: Breath sounds equal bilaterally. No accessory muscle use. GASTROINTESTINAL: Abdomen soft, non-tender, nondistended. NEURO/PSYCH: Alert, calm. Results - Labs CBC & Chem 7: 04/15/18 07:20 04/15/18 07:20 Assessment and Plan - Assessment (1) Dementia Code(s): F03.90 - Unspecified dementia without behavioral disturbance Status: Chronic (2) Constipation Code(s): K59.00 - Constipation, unspecified Status: Acute (3) Fecal impaction in rectum Code(s): K56.41 - Fecal impaction Status: Acute - Plan 58-year-old Male with PMHx of Parkinson's disease, Dementia, Neuropathy and HTN presents to the emergency department for evaluation of persistent diarrhea likely secondary to fecal impaction. Per CT of the abdomen/pelvis abundant stool throughout with rectal fecal impaction. 1. Severe dysphasia/failure to thrive/severe protein calorie malnutrition/ diarrhea Likely Secondary to Fecal impaction CT of the abdomen/pelvis shows a colon with abundant stool throughout with rectal fecal impaction Gastroenterology consulted Some bowel movements with enema. Continue enema per GI. Plan for flex sig tomorrow. GI planning for EGD and PEG, however the patient's mother wants to hold off until she can make sure the insurance company can provide pump and feeding tube supplies at home.. Extensive discussion with the patient's mother. She wants to make sure she will have the help needed at home for continuous feeding. Discussed with case fitter to contact the insurance company to ensure the patient's family can receive appropriate support. Per case management, the [employer] case management has been called and they are waiting for return call Dietitian consulted. Continue IV fluid 2. Hypertension Blood pressure acceptable Continue Vasotec IV PRN and home ASA Cont. to monitor 3. Dementia/Parkinson's disease/Anxiety/Insomnia Continue home medications, Sinemet, Aricept, Isac, Oxybutynin, Mestinon, Zoloft , and Temazepam Already has HH in place daily per mother 4. Hypokalemia, resolved Code Status: full Discussed Condition With: patient, mother, RN and CM Discharge Planning: Pending PEG placement and successful transition to home. Will need home health and feeding pump for home. (2) Constipation Qualifiers: Constipation type: unspecified constipation type Qualified Code(s): K59.00 - Constipation, unspecified
--- NOTE | 2018-04-17 16:18 | P.PNGI ---
Subjective Interval history: Patient is resting in the bed eyes open, a fascia no facial grimace Mother in room sitting at bedside <Mi[place]Ale - Last Filed: 04/17/18 17:02> Physical Exam Vital signs: Vital Signs 04/16/18 20:00 04/17/18 00:05 04/17/18 04:00 Temperature 97.6 F 97.4 F L 97.3 F L Pulse Rate 79 77 63 Respiratory Rate 18 18 18 Blood Pressure 111/63 151/94 H 148/90 H Pulse Oximetry 97 98 97 04/17/18 08:00 04/17/18 12:00 Temperature 97.4 F L 97.3 F L Pulse Rate 69 91 H Respiratory Rate 20 20 Blood Pressure 155/95 H 101/67 Pulse Oximetry 95 96 Intake & Output 04/16/18 04/17/18 04/17/18 18:59 06:59 18:59 Intake Total 1100 / 1100 1000 / 1000 Output Total 3 / 3 Balance 1100 / 1100 997 / 997 Weight 49.7 kg Intake: IV 850 / 850 1000 / 1000 D5W/1/2NS + KCL 10 mEq Inj 1, 850 / 850 1000 / 1000 000 ML @ 100 mls/hr IV.CONT . Q10H [facility] Rx#:[id number] Oral 250 / 250 Output: Urine 2 / 2 Stool 1 / 1 Other: # Incontinent Voids 4 Date of Last Bowel Movement 04/15/18 04/17/18 04/17/18 # Incontinent Bowel Movements 2 - Constitutional no acute distress - Routine HEENT Exam ENT: Present: mucous membranes moist - Routine Respiratory Exam Present: accessory muscle use - Routine Abdominal Exam Present: soft (No shortness of breath), normoactive bowel sounds ( flat, no tenderness) <Ale Barron - Last Filed: 04/17/18 17:02> Vital signs: Vital Signs 04/16/18 20:00 04/17/18 00:05 04/17/18 04:00 Temperature 97.6 F 97.4 F L 97.3 F L Pulse Rate 79 77 63 Respiratory Rate 18 18 18 Blood Pressure 111/63 151/94 H 148/90 H Pulse Oximetry 97 98 97 04/17/18 08:00 04/17/18 12:00 04/17/18 16:00 Temperature 97.4 F L 97.3 F L 97.9 F Pulse Rate 69 91 H 73 Respiratory Rate 20 20 20 Blood Pressure 155/95 H 101/67 134/83 Pulse Oximetry 95 96 99 Intake & Output 04/16/18 04/17/18 04/17/18 18:59 06:59 18:59 Intake Total 1100 / 1100 1000 / 1000 Output Total 3 / 3 Balance 1100 / 1100 997 / 997 Weight 49.7 kg Intake: IV 850 / 850 1000 / 1000 D5W/1/2NS + KCL 10 mEq Inj 1, 850 / 850 1000 / 1000 000 ML @ 100 mls/hr IV.CONT . Q10H [facility] Rx#:[id number] Oral 250 / 250 Output: Urine 2 / 2 Stool Other: # Incontinent Voids 4 Date of Last Bowel Movement 04/15/18 04/17/18 04/17/18 # Incontinent Bowel Movements 2 <Jenny Scales - Last Filed: 04/17/18 18:21> Results - Labs CBC & Chem 7: 04/15/18 07:20 04/15/18 07:20 <Ale Barron - Last Filed: 04/17/18 17:02> - Labs CBC & Chem 7: 04/15/18 07:20 04/15/18 07:20 - Imaging Impressions Abdomen X-Ray 04/17/18 00:00 CONCLUSION: Slight improvement in rectal constipation. <Jenny Scales - Last Filed: 04/17/18 18:21> Assessment and Plan (1) Constipation Status: Acute Code(s): K59.00 - Constipation, unspecified (2) Fecal impaction in rectum Status: Acute Code(s): K56.41 - Fecal impaction - Plan - ssessment: - Constipation/fecal impaction CT abdomen/pelvis W IV contrast (04/13) and KUB () consistent with rectal fecal impaction. S/P bedside manual disimpaction, some Golytely (as pt would take) and fleets enema. Pt has had a few BMs. - Poor PO intake with history of Parkinsons disease and dementia- appears to have failure to thrive. Pts mother is his primary direct care professional and does not want him a nursing facility and is not open to palliative management. she would like to pursue PEG tube. discussed with Dr. Contreras, he is planning for home healthcare after DC to assist in management of PEG tube. 04/16/2018 Constipation/fecal impaction Nursing reports patient had 3 loose to soft bowel movements today. Will order KUB in the morning Poor p.o. intake Patient's mother reports patient has had difficulty swallowing for months and she would like for patient to have PEG tube placement. Patient's mother is legally blind and states she would like to pursue PEG tube placement as long as case management can arrange home health care to assist with the management of PEG tube and infusion pump for feedings. 04/17/2018, resting in the bed no acute changes over the past 24 hours patient is pending PEG tube placement. Mother is holding up procedure until she can make sure that home health is going to be able to take care of patient and his sister at home. Case management pending evaluation. Spoke with nursing today Pending PEG tube placement possible Thursday dependent case management input. Appreciate dietary consult and input. If no PEG tube may need to consider palliative care so mother will be able to take patient home and we can allow her to let patient eat. History of constipation but patient is now averaging 2 stools per day. KUB pending. Reevaluation needed with speech therapy now that patient is more alert. If PEG tube is not placed what are our recommendations for home? Plan Diet, n.p.o. for now Case management assisting with confirmation of home health services for assistance with PEG tube and infusion pump for feedings EGD/PEG placement, pending hope to plan for first of the week Reevaluate speech therapy for swallow now the patient is more alert Okay to continue Ecotrin 81 mg KUB pending, reevaluate constipation Supportive care Patient was seen per myself and Dr. Scales, note was written on his behalf <Ale Barron - Last Filed: 04/17/18 17:02> (1) Constipation Status: Acute Code(s): K59.00 - Constipation, unspecified (2) Fecal impaction in rectum Status: Acute Code(s): K56.41 - Fecal impaction - Plan Patient was seen and examined, agree with above note, PEG tube early next week <Jenny Scales - Last Filed: 04/17/18 18:21> <Ale Barron - Last Filed: 04/17/18 17:02> (1) Constipation Qualifiers: Constipation type: unspecified constipation type Qualified Code(s): K59.00 - Constipation, unspecified <Jenny Scales - Last Filed: 04/17/18 18:21> (1) Constipation Qualifiers: Constipation type: unspecified constipation type Qualified Code(s): K59.00 - Constipation, unspecified
--- NOTE | 2018-04-17 17:37 | XR ---
EXAM DATE: 04/17/2018 5:33 PM EDT AGE/SEX: 58 years / Male INDICATIONS: Constipation. CLINICAL DATA: This is the patient's subsequent encounter. Patient reports that signs and symptoms h ave been present for 4 - 6 days and indicates a pain score of 0/10. MEDICAL/SURGICAL HISTORY: Hypertension. Dementia. Parkinson's disease. None. [place] [facility] [place] [facility] & [place]IGHT[place] 04/14/2018. . FINDINGS: The amount of stool in the rectum has decreased slightly since April 14. Small amount of stool in the remainder no free air. No evidence for obstruction. . CONCLUSION: Slight improvement in rectal constipation. Electronically signed by: Jose D Zhang MD 04/17/2018 5:35 PM EDT
[2018-04-17] MEDS: Temazepam 15 MG Capsule PO SCH (20:03)
[2018-04-18] MEDS: Mineral Oil Enema 118 ML Bottle RECTAL SCH ×2 (02:10→05:00)
[2018-04-18] MEDS: Pyridostigmine Bromide 60 MG Tablet PO SCH ×2 (08:54→20:43)
[2018-04-18] MEDS: Gabapentin 300 MG Capsule PO SCH ×3 (08:55→20:43)
[2018-04-18] MEDS: Sertraline 50 MG Tablet PO SCH (08:55)
[2018-04-18] MEDS: KCL 10 mEq/D5W/NaCl 0.45% Inj 1,000 ML IV.CONT SCH ×2 (08:59→17:55)
[2018-04-18] MEDS ORDERED: Mineral Oil Enema 118 ML Bottle RECTAL PRN (10:34)
--- NOTE | 2018-04-18 12:58 | P.PNIM ---
Subjective Interval history: DW patient's mother at bedside. The patient has been asking for food. His mother is conflicted because she knows he cannot adhere to previously recommended puree diet. Patient had multiple normal bowel movement. Physical Exam Vital signs: Vital Signs 04/17/18 16:00 04/17/18 20:00 04/18/18 00:00 Temperature 97.9 F 98.4 F 98.8 F Pulse Rate 73 78 70 Respiratory Rate 20 18 18 Blood Pressure 134/83 117/85 103/72 Pulse Oximetry 99 100 97 04/18/18 04:00 04/18/18 08:00 Temperature 98.6 F 97.1 F L Pulse Rate 73 70 Respiratory Rate 18 20 Blood Pressure 113/76 161/99 H Pulse Oximetry 98 99 Intake & Output 04/17/18 04/18/18 04/18/18 18:59 06:59 18:59 Intake Total 1000 / 1000 1000 / 1000 1000 / 1000 Output Total 303 / 303 Balance 697 / 697 1000 / 1000 1000 / 1000 Weight 52.4 kg Intake: IV 1000 / 1000 1000 / 1000 1000 / 1000 D5W/1/2NS + KCL 10 mEq Inj 1, 1000 / 1000 1000 / 1000 1000 / 1000 000 ML @ 100 mls/hr IV.CONT . [facility] Rx#:[id number] Output: Urine 302 / 302 Stool Other: # Incontinent Voids 1 Date of Last Bowel Movement 04/17/18 04/17/18 04/17/18 # Bowel Movements 3 # Incontinent Bowel Movements 1 Narrative: GENERAL: Cachectic looking male, lying in bed in no acute distress. CARDIOVASCULAR: Regular rate and rhythm without murmurs, gallops, or rubs. RESPIRATORY: Breath sounds equal bilaterally. No accessory muscle use. GASTROINTESTINAL: Abdomen soft, non-tender, nondistended. NEURO/PSYCH: Awake and Alert, calm. Results - Labs CBC & Chem 7: 04/15/18 07:20 04/15/18 07:20 - Imaging Impressions Abdomen X-Ray 04/17/18 00:00 CONCLUSION: Slight improvement in rectal constipation. Assessment and Plan - Assessment (1) Dementia Code(s): F03.90 - Unspecified dementia without behavioral disturbance Status: Chronic (2) Constipation Code(s): K59.00 - Constipation, unspecified Status: Acute (3) Fecal impaction in rectum Code(s): K56.41 - Fecal impaction Status: Acute - Plan 58-year-old Male with PMHx of Parkinson's disease, Dementia, Neuropathy and HTN presents to the emergency department for evaluation of persistent diarrhea likely secondary to fecal impaction. Per CT of the abdomen/pelvis abundant stool throughout with rectal fecal impaction. 1. Severe dysphasia/failure to thrive/severe protein calorie malnutrition/ diarrhea Likely Secondary to Fecal impaction CT of the abdomen/pelvis shows a colon with abundant stool throughout with rectal fecal impaction Gastroenterology following Some bowel movements with enema. Constipation resolving. He has been having normal bowel movements. GI planning for EGD and PEG, however the patient's mother wants to hold off until she can make sure the insurance company can provide pump and feeding tube supplies at home.. Extensive discussion with the patient's mother. She wants to make sure she will have the help needed at home for continuous feeding. Discussed with caseworker to contact the insurance company to ensure the patient's family can receive appropriate support. Per case management, the [employer] case management has been called and they are waiting for return call Mother is conflicted with the fact the patient cannot eat because he still request foods and his mother knows he will not stick to puree diet. Extensive discussion with the patient's mother today regarding palliative care and Hospice. She reportedly had a bad experience with Hospice and does not want Hospice mainly because she states she would only receive 2 hrs of help. Continue IV fluid 2. Hypertension Blood pressure acceptable Continue Vasotec IV PRN and home ASA Cont. to monitor 3. Dementia/Parkinson's disease/Anxiety/Insomnia Continue home medications, Sinemet, Aricept, Isac, Oxybutynin, Mestinon, Zoloft , and Temazepam Already has HH in place daily per mother 4. Hypokalemia, resolved Code Status: full Discussed Condition With: patient, mother, bit shaver Planning: Pending PEG placement and successful transition to home. Will need home health and feeding pump for home. (2) Constipation Qualifiers: Constipation type: unspecified constipation type Qualified Code(s): K59.00 - Constipation, unspecified
--- NOTE | 2018-04-18 15:30 | P.PNGI ---
Subjective Interval history: Patient sitting up in bed more alert today smiling and answering very simple questions mother in room. No obvious nausea vomiting or abdominal pain Physical Exam Vital signs: Vital Signs 04/17/18 16:00 04/17/18 20:00 04/18/18 00:00 Temperature 97.9 F 98.4 F 98.8 F Pulse Rate 73 78 70 Respiratory Rate 20 18 18 Blood Pressure 134/83 117/85 103/72 Pulse Oximetry 99 100 97 04/18/18 04:00 04/18/18 08:00 04/18/18 12:00 Temperature 98.6 F 97.1 F L 97.7 F Pulse Rate 73 70 74 Respiratory Rate 18 20 20 Blood Pressure 113/76 161/99 H 157/100 H Pulse Oximetry 98 99 99 Intake & Output 04/17/18 04/18/18 04/18/18 18:59 06:59 18:59 Intake Total 1000 / 1000 1000 / 1000 1000 / 1000 Output Total 303 / 303 3 / 3 Balance 697 / 697 1000 / 1000 997 / 997 Weight 52.4 kg Intake: IV 1000 / 1000 1000 / 1000 1000 / 1000 D5W/1/2NS + KCL 10 mEq Inj 1, 1000 / 1000 1000 / 1000 1000 / 1000 000 ML @ 100 mls/hr IV.CONT . Q10H [facility] Rx#:[id number] Output: Urine 302 / 302 2 / 2 Stool / Other: # Incontinent Voids 1 Date of Last Bowel Movement 04/17/18 04/17/18 04/18/18 # Bowel Movements 3 # Incontinent Bowel Movements 1 - Constitutional mild distress, thin, cachectic, cooperative (Today) - Routine HEENT Exam ENT: Present: mucous membranes dry - Routine Respiratory Exam Present: accessory muscle use - Routine Abdominal Exam Present: soft (No obvious shortness of breath flat, soft bowel sounds) - Routine Skin Exam Present: pallor Results - Labs CBC & Chem 7: 04/15/18 07:20 04/15/18 07:20 - Imaging Impressions Abdomen X-Ray 04/17/18 00:00 CONCLUSION: Slight improvement in rectal constipation. Assessment and Plan (1) Constipation Status: Acute Code(s): K59.00 - Constipation, unspecified (2) Fecal impaction in rectum Status: Acute Code(s): K56.41 - Fecal impaction - Plan Patient was seen anConstipation/fecal impaction Nursing reports patient had 3 loose to soft bowel movements today. Will order KUB in the morning Poor p.o. intake Patient's mother reports patient has had difficulty swallowing for months and she would like for patient to have PEG tube placement. Patient's mother is legally blind and states she would like to pursue PEG tube placement as long as case management can arrange home health care to assist with the management of PEG tube and infusion pump for feedings. 04/17/2018, resting in the bed no acute changes over the past 24 hours patient is pending PEG tube placement. Mother is holding up procedure until she can make sure that home health is going to be able to take care of patient and his sister at home. Case management pending evaluation. Spoke with nursing today Pending PEG tube placement possible Thursday dependent case management input. Appreciate dietary consult and input. If no PEG tube may need to consider palliative care so mother will be able to take patient home and we can allow her to let patient eat. History of constipation but patient is now averaging 2 stools per day. KUB pending. Reevaluation needed with speech therapy now that patient is more alert. If PEG tube is not placed what are our recommendations for home? 04/18/2018 hemoglobin 14 no obvious bleeding or GI symptoms. Still working with mother on long-term plans and PEG tube is still her wishes at this time pending insurance information. Hospitalist and myself discussed with mother in depth today short-term goals and long-term goals which could include supportive care/hospice.. Mother had a bad experience with hospice in the past so she is afraid, Currently caseworker protective services is working on patient having IV pump at home and not having to do bolus feeds since mother is blind. Further recommendations to follow once insurance has given approval or not for nutritional feeding pump at home Plan Diet, n.p.o. for now Case management assisting with confirmation of home health services for assistance with PEG tube and infusion pump for feedings EGD/PEG placement still pending Reevaluate speech therapy for swallow now the patient is more alert Supportive care Patient was seen per myself and Dr. Angel, note was written on his behalf (1) Constipation Qualifiers: Constipation type: unspecified constipation type Qualified Code(s): K59.00 - Constipation, unspecified
[2018-04-18] MEDS: Temazepam 15 MG Capsule PO SCH (20:43)
[2018-04-19] MEDS: KCL 10 mEq/D5W/NaCl 0.45% Inj 1,000 ML IV.CONT SCH ×4 (04:05→23:00)
[2018-04-19] MEDS: Pyridostigmine Bromide 60 MG Tablet PO SCH ×2 (08:19→21:50)
[2018-04-19] MEDS: Sertraline 50 MG Tablet PO SCH (08:20)
[2018-04-19] MEDS: Gabapentin 300 MG Capsule PO SCH ×3 (08:21→21:50)
--- NOTE | 2018-04-19 14:44 | P.PCN ---
Date of procedure: 04/19/18 Procedure: THANK YOU FOR THE REFERRAL Indication; dysphagia Procedure Performed; upper endoscopy with PEG tube placement After informing the patient about procedure and possible complications consent was signed. history and physical were updated. Patient was taken to the procedure room and placed in position. Time out was completed. Adequate sedation was performed by anesthesia provider. Upper Endoscopy, the scope was placed in the mouth advanced under video guide to the second portion of the duodenum, then the scope was withdrawal to the stomach and retro-flexion was performed, the area for the PEG tube was identified by illumination and indentation in the left upper quadrant, the area was sterilized with Betadine and injected with lidocaine, a catheter was passed through the abdominal wall and a wire was retrieved by snare, a 20 [place] Microvasive PEG tube was placed with a pull technique without any immediate complication, the scope was placed in the mouth again advanced to the stomach for verification of the PEG tube placement which was in good position then, the scope was withdrawal to the esophagus then out of the mouth without any immediate complication Findings; Esophagus: Normal Stomach normal PEG tube was placed in the left upper quadrant Duodenum normal Recommendations; 1- Supportive care 2- ok to transfer to recovery area then discharge per protocol 3-n.p.o. for 6 hours then may start diet using the PEG tube 4-continue current meds 5- EGD as needed
--- NOTE | 2018-04-19 14:46 | P.PNGI ---
Subjective Interval history: Patient laying in bed comfortably, not very conversational responsive, his mother agreed for him to have the PEG tube placement Physical Exam Vital signs: Vital Signs 04/18/18 16:00 04/18/18 20:00 04/19/18 00:00 Temperature 97.7 F 97.6 F 97.7 F Pulse Rate 78 88 67 Respiratory Rate 20 18 18 Blood Pressure 117/82 110/69 107/74 Pulse Oximetry 98 99 98 04/19/18 04:00 04/19/18 08:00 04/19/18 13:49 Temperature 97.6 F 97.6 F 96.9 F L Pulse Rate 70 77 71 Respiratory Rate 18 17 18 Blood Pressure 115/70 137/87 177/113 H Pulse Oximetry 100 96 100 04/19/18 13:53 04/19/18 13:57 Temperature Pulse Rate 73 Respiratory Rate 18 Blood Pressure 169/108 H 147/97 H Pulse Oximetry 99 Intake & Output 04/18/18 04/19/18 04/19/18 18:59 06:59 18:59 Intake Total 1999 1000 / 1000 100 / 100 Output Total 3 / 3 Balance 1996 1000 / 1000 100 / 100 Weight 53.4 kg Intake: IV 1999 1000 / 1000 D5W/1/2NS + KCL 10 mEq Inj 1, 1999 1000 / 999 000 ML @ 100 mls/hr IV.CONT . Q10H [facility] Rx#:[id number] Anesthesia Amount 100 / 100 Output: Urine 2 / 2 Stool / Other: # Incontinent Voids 2 2 Date of Last Bowel Movement 04/18/18 04/18/18 # Incontinent Bowel Movements 4 2 - Constitutional no acute distress, somnolent - Routine HEENT Exam Head: Present: normocephalic Eye: Present: EOMI, PERRL ENT: Present: mucous membranes moist - Routine Neck Exam Present: supple, full ROM - Routine Respiratory Exam Present: decreased breath sounds - Routine Cardiovascular Exam Present: RRR, S1, S2 - Routine Abdominal Exam Present: soft, normoactive bowel sounds Results - Labs CBC & Chem 7: 04/15/18 07:20 04/15/18 07:20 Assessment and Plan (1) Constipation Status: Acute Code(s): K59.00 - Constipation, unspecified (2) Fecal impaction in rectum Status: Acute Code(s): K56.41 - Fecal impaction - Plan Patient was seen anConstipation/fecal impaction Nursing reports patient had 3 loose to soft bowel movements today. Will order KUB in the morning Poor p.o. intake Patient's mother reports patient has had difficulty swallowing for months and she would like for patient to have PEG tube placement. Patient's mother is legally blind and states she would like to pursue PEG tube placement as long as case management can arrange home health care to assist with the management of PEG tube and infusion pump for feedings. 04/17/2018, resting in the bed no acute changes over the past 24 hours patient is pending PEG tube placement. Mother is holding up procedure until she can make sure that home health is going to be able to take care of patient and his sister at home. Case management pending evaluation. Spoke with nursing today Pending PEG tube placement possible Thursday dependent case management input. Appreciate dietary consult and input. If no PEG tube may need to consider palliative care so mother will be able to take patient home and we can allow her to let patient eat. History of constipation but patient is now averaging 2 stools per day. KUB pending. Reevaluation needed with speech therapy now that patient is more alert. If PEG tube is not placed what are our recommendations for home? 04/18/2018 hemoglobin 14 no obvious bleeding or GI symptoms. Still working with mother on long-term plans and PEG tube is still her wishes at this time pending insurance information. Hospitalist and myself discussed with mother in depth today short-term goals and long-term goals which could include supportive care/hospice.. Mother had a bad experience with hospice in the past so she is afraid, Currently case monitor is working on patient having IV pump at home and not having to do bolus feeds since mother is blind. Further recommendations to follow once insurance has given approval or not for nutritional feeding pump at home 04/19/2018, patient is doing okay, no active bleeding, mother agreed for the patient to have PEG tube placement so we will proceed with that, this was done today Findings; Esophagus: Normal Stomach normal PEG tube was placed in the left upper quadrant Duodenum normal Recommendations; 1- Supportive care 2- ok to transfer to recovery area then discharge per protocol 3-n.p.o. for 6 hours then may start diet using the PEG tube 4-continue current meds 5- EGD as needed (1) Constipation Qualifiers: Constipation type: unspecified constipation type Qualified Code(s): K59.00 - Constipation, unspecified
--- NOTE | 2018-04-19 16:34 | P.PNIM ---
Subjective Interval history: DW patient's mother at bedside. She is now agreeable to PEG tube placement. No other issues. He is awake. Physical Exam Vital signs: Vital Signs 04/18/18 20:00 04/19/18 00:00 04/19/18 04:00 Temperature 97.6 F 97.7 F 97.6 F Pulse Rate 88 67 70 Respiratory Rate 18 18 18 Blood Pressure 110/69 107/74 115/70 Pulse Oximetry 99 98 100 04/19/18 08:00 04/19/18 13:49 04/19/18 13:53 Temperature 97.6 F 96.9 F L Pulse Rate 77 71 Respiratory Rate 17 18 Blood Pressure 137/87 177/113 H 169/108 H Pulse Oximetry 96 100 04/19/18 13:57 Temperature Pulse Rate 73 Respiratory Rate 18 Blood Pressure 147/97 H Pulse Oximetry 99 Intake & Output 04/18/18 04/19/18 04/19/18 18:59 06:59 18:59 Intake Total 1999 1000 / 1000 100 / 100 Output Total Balance 1996 1000 / 1000 100 / 100 Weight 53.4 kg Intake: IV 1999 1000 / 1000 D5W/1/2NS + KCL 10 mEq Inj 1, 1999 1000 / 1000 000 ML @ 100 mls/hr IV.CONT . Q10H [facility] Rx#:[id number] Anesthesia Amount 100 / 100 Output: Urine 2 / 2 Stool / Other: # Incontinent Voids 2 2 Date of Last Bowel Movement 04/18/18 04/18/18 # Incontinent Bowel Movements 4 2 Narrative: GENERAL: Cachectic looking male, lying in bed in no acute distress. CARDIOVASCULAR: Regular rate and rhythm without murmurs, gallops, or rubs. RESPIRATORY: Breath sounds equal bilaterally. No accessory muscle use. GASTROINTESTINAL: Abdomen soft, non-tender, nondistended. NEURO/PSYCH: Awake and Alert, calm. Results - Labs CBC & Chem 7: 04/15/18 07:20 04/15/18 07:20 Assessment and Plan - Assessment (1) Dementia Code(s): F03.90 - Unspecified dementia without behavioral disturbance Status: Chronic (2) Constipation Code(s): K59.00 - Constipation, unspecified Status: Acute (3) Fecal impaction in rectum Code(s): K56.41 - Fecal impaction Status: Acute - Plan 58-year-old Male with PMHx of Parkinson's disease, Dementia, Neuropathy and HTN presents to the emergency department for evaluation of persistent diarrhea likely secondary to fecal impaction. Per CT of the abdomen/pelvis abundant stool throughout with rectal fecal impaction. Patient needs alternate method of feeding because he has severe dysphagia due to his underlying parkinsonism/ dementia. Once feeding tube placed and he can tolerate it, he can be discharged home with home health. His mother is the branch director. 1. Severe dysphasia/failure to thrive/severe protein calorie malnutrition/ diarrhea Likely Secondary to Fecal impaction CT of the abdomen/pelvis shows a colon with abundant stool throughout with rectal fecal impaction Gastroenterology following. Constipation resolving. He has been having normal bowel movements. GI planning for EGD and PEG, however the patient's mother held off until she can make sure the insurance company can provide pump and feeding tube supplies at home. Extensive discussion with the patient's mother. She wants to make sure she will have the help needed at home for continuous feeding. Could not reach insurance marketing specialist over the weekend. on 04/19, was notified the insurance company will approve the feeding pump for home use. - 04/19: For PEG today. Start feeding when cleared by GI - Consult Dietitian for tube feeding recommendations - Continue IV fluid 2. Hypertension Blood pressure acceptable Continue Vasotec IV PRN Cont. to monitor 3. Dementia/Parkinson's disease/Anxiety/Insomnia Continue home medications, Sinemet, Aricept, Isac, Oxybutynin, Mestinon, Zoloft , and Temazepam Already has HH in place daily per mother 4. Hypokalemia, resolved Code Status: full Discussed Condition With: patient, mother, writing tutor Planning: Pending PEG placement today. Start Tube feeding in AM per dietitian recs if OK with GI. Need home health arranged, then can DC home with mother. Face to face and prescription for tube feeding pump written. (2) Constipation Qualifiers: Constipation type: unspecified constipation type Qualified Code(s): K59.00 - Constipation, unspecified
--- NOTE | 2018-04-19 16:38 | P.DCO ---
- Diagnosis (1) Dysphagia Status: Acute (2) Parkinson disease Status: Acute (3) Constipation Status: Acute (4) Fecal impaction in rectum Status: Acute (5) Dementia Status: Chronic - Home Health Nursing Order: Medical education (Home health nursing to assist with feeding pump once daily until mother is comfortable.), Signs/symptoms of disease process - Home Health Aide Order: To assist in: Bathing and personal care, actuarial associate and meal prep - Case Management Consult Yes - Certification I have seen patient Anson Cope on 04/19/18. My clinical findings support the need for the requested home health care services because: Limited mobility due to disease progression, Limited ability to care for self, Need for psychosocial assistance, Impaired cognition/judgement I certify that my clinical findings support that this patient is homebound because: Impaired cognitive ability/safety, Need for psychosocial assistance, Non- ambulatory: confined to bed or chair (3) Constipation Qualifiers: Constipation type: unspecified constipation type Qualified Code(s): K59.00 - Constipation, unspecified
--- NOTE | 2018-04-19 17:53 | ECG ---
Date Performed: 04/15/2018 Time Performed: 16:01:49 PTAGE: 58 years EKG: Sinus rhythm NORMAL ECG PREVIOUS TRACING : 01/29/2018 16.16 Since the previous tracing, no significant change noted DOCTOR: Asher William Interpretating Date/Time 04/19/2018 17:51:44
[2018-04-19] MEDS: Temazepam 15 MG Capsule PO SCH (21:50)
[2018-04-20] MEDS: Pyridostigmine Bromide 60 MG Tablet PO SCH ×2 (09:00→21:54)
[2018-04-20] MEDS: Sertraline 50 MG Tablet PO SCH (09:00)
[2018-04-20] MEDS: Gabapentin 300 MG Capsule PO SCH ×3 (09:01→21:54)
[2018-04-20] MEDS: KCL 10 mEq/D5W/NaCl 0.45% Inj 1,000 ML IV.CONT SCH ×3 (09:54→21:55)
--- NOTE | 2018-04-20 10:36 | P.DIET ---
Nutritional Evaluation Type of nutrition evaluation: initial Nutrition consult regarding: Tube Feeding [place] [facility] [place] - Diagnosis Severe rectal impaction, diarrhea - Objective Body Mass Index: 16.9 % IBW: 71 (IBW = 166#) Body Weight Used for Calculations: Actual (53.4 kg) Energy Needs - Lower Range (kCal/kg): 30 Energy Needs - Upper Range (kCal/kg): 35 Lower Limit kCal/kg (kCals): 1,602 Upper Limit kCal/kg (kCals): 1,869 Lower Limit Protein Factor (Grams per Kg): 1.0 Upper Limit Protein Factor (Grams per Kg): 1.5 Lower Protein Needs (Protein): 53 Upper Protein Needs (Protein): 80 Fluid Factor (ml/kg): 35 Estimated Fluid Needs (ml): 1,869 Dietitian Reviewed in Medical Record: Curent medications, Intake & Output, Labs , Medical history, Tube feeding Diet Order: NPO Assessment Assessment: Pt had PEG placed. Agree with current order for Jevity 1.5 @ 50 mls/hr goal. This will provide 1800 kcals, 77 gms protein and 912 mls of free water. Pt will need an additional 150 ml water flush q 4 hrs to meet fluid needs. If bolus feeds are needed for home: same nutrition can be obtained with 300 mls at breakfast, lunch, dinner and hs. Recommendations: Jevity 1.5 @ 50 mls/hr goal Dietitian to Monitor: Lab values, Intake & Output, Tube feeding tolerance, Weight change, Medical course
--- NOTE | 2018-04-20 14:04 | P.PNGI ---
Subjective Interval history: Patient laying supine in bed, nurse at bedside. Patient's mom at bedside. Patient post PEG tube insertion Nurse reports patient having soft brown stools Physical Exam Vital signs: Vital Signs 04/19/18 16:00 04/19/18 20:00 04/20/18 00:00 Temperature 97.7 F 98.5 F 97.9 F Pulse Rate 76 86 80 Respiratory Rate 18 18 18 Blood Pressure 162/103 H 106/77 92/60 L Pulse Oximetry 97 98 96 04/20/18 04:00 04/20/18 08:00 Temperature 98 F 97.4 F L Pulse Rate 69 66 Respiratory Rate 18 12 Blood Pressure 92/61 L 100/64 Pulse Oximetry 96 98 Intake & Output 04/19/18 04/20/18 04/20/18 18:59 06:59 18:59 Intake Total 1100 / 1100 1000 / 1000 Balance 1100 / 1100 1000 / 1000 Intake: IV 1000 / 1000 1000 / 1000 D5W/1/2NS + KCL 10 mEq Inj 1, 1000 / 1000 1000 / 1000 000 ML @ 100 mls/hr IV.CONT . Q10H [facility] Rx#:[id number] Anesthesia Amount 100 / 100 Other: # Incontinent Voids 2 3 Date of Last Bowel Movement 04/18/18 04/20/18 # Incontinent Bowel Movements 4 1 - Constitutional no acute distress - Routine HEENT Exam Head: Present: normocephalic - Routine Respiratory Exam Present: CTA bilaterally. Absent: accessory muscle use - Routine Abdominal Exam Present: soft, normoactive bowel sounds. Absent: tenderness, distended, guarding, firm - Routine Extremities Exam Present: full ROM. Absent: edema - Routine Skin Exam Present: dry, warm - Routine Neurological Exam Present: alert Results - Labs CBC & Chem 7: 04/15/18 07:20 04/15/18 07:20 Assessment and Plan (1) Constipation Status: Acute Code(s): K59.00 - Constipation, unspecified (2) Fecal impaction in rectum Status: Acute Code(s): K56.41 - Fecal impaction - Plan Patient was seen anConstipation/fecal impaction Nursing reports patient had 3 loose to soft bowel movements today. Will order KUB in the morning Poor p.o. intake Patient's mother reports patient has had difficulty swallowing for months and she would like for patient to have PEG tube placement. Patient's mother is legally blind and states she would like to pursue PEG tube placement as long as case management can arrange home health care to assist with the management of PEG tube and infusion pump for feedings. 04/17/2018, resting in the bed no acute changes over the past 24 hours patient is pending PEG tube placement. Mother is holding up procedure until she can make sure that home health is going to be able to take care of patient and his sister at home. Case management pending evaluation. Spoke with nursing today Pending PEG tube placement possible Thursday dependent case management input. Appreciate dietary consult and input. If no PEG tube may need to consider palliative care so mother will be able to take patient home and we can allow her to let patient eat. History of constipation but patient is now averaging 2 stools per day. KUB pending. Reevaluation needed with speech therapy now that patient is more alert. If PEG tube is not placed what are our recommendations for home? 04/18/2018 hemoglobin 14 no obvious bleeding or GI symptoms. Still working with mother on long-term plans and PEG tube is still her wishes at this time pending insurance information. Hospitalist and myself discussed with mother in depth today short-term goals and long-term goals which could include supportive care/hospice.. Mother had a bad experience with hospice in the past so she is afraid, Currently case folder is working on patient having IV pump at home and not having to do bolus feeds since mother is blind. Further recommendations to follow once insurance has given approval or not for nutritional feeding pump at home 04/19/2018, patient is doing okay, no active bleeding, mother agreed for the patient to have PEG tube placement so we will proceed with that, this was done today Findings; Esophagus: Normal Stomach normal PEG tube was placed in the left upper quadrant Duodenum normal Recommendations: 1- Supportive care 2- ok to transfer to recovery area then discharge per protocol 3-n.p.o. for 6 hours then may start diet using the PEG tube 4-continue current meds 5- EGD as needed 04/20/2018-patient resting comfortably in bed, mother at bedside. Patient is post PEG placement, Jevity 1.5 and 35 mL's per hour infusing. Patient's mom states insurance has approved pump for nutritional feedings at home. No active bleeding. Plan -Jevity 1.5 infuse 8 to goal rate of 50 mL's per hour -150 mL water flushes every 4 hours -Check for residuals -Supportive care This patient has been seen by myself and Dr. Scales and this note is written on his behalf - Attending Attestation Dr. Scales (1) Constipation Qualifiers: Constipation type: unspecified constipation type Qualified Code(s): K59.00 - Constipation, unspecified
--- NOTE | 2018-04-20 17:27 | P.PNIM ---
Subjective Interval history: PEG placed yesterday. Tube feeding started today. It had to be stopped at 35 cc/hr due to residuals. Physical Exam Vital signs: Vital Signs 04/19/18 20:00 04/20/18 00:00 04/20/18 04:00 Temperature 98.5 F 97.9 F 98 F Pulse Rate 86 80 69 Respiratory Rate 18 18 18 Blood Pressure 106/77 92/60 L 92/61 L Pulse Oximetry 98 96 96 04/20/18 08:00 04/20/18 12:00 Temperature 97.4 F L 97.4 F L Pulse Rate 66 80 Respiratory Rate 12 16 Blood Pressure 100/64 118/76 Pulse Oximetry 98 98 Intake & Output 04/19/18 04/20/18 04/20/18 18:59 06:59 18:59 Intake Total 1100 / 1100 1000 / 1000 Balance 1100 / 1100 1000 / 1000 Intake: IV 1000 / 1000 1000 / 1000 D5W/1/2NS + KCL 10 mEq Inj 1, 1000 / 1000 1000 / 1000 000 ML @ 100 mls/hr IV.CONT . Q10H [facility] Rx#:[id number] Anesthesia Amount 100 / 100 Other: # Incontinent Voids 2 3 Date of Last Bowel Movement 04/18/18 04/20/18 # Incontinent Bowel Movements 4 1 Narrative: GENERAL: Cachectic looking male, lying in bed in no acute distress. CARDIOVASCULAR: Regular rate and rhythm without murmurs, gallops, or rubs. RESPIRATORY: Breath sounds equal bilaterally. No accessory muscle use. GASTROINTESTINAL: Abdomen soft, non-tender, nondistended. PEG in place NEURO/PSYCH: Awake and Alert, calm. Results - Labs CBC & Chem 7: 04/15/18 07:20 04/15/18 07:20 Assessment and Plan - Assessment (1) Dementia Code(s): F03.90 - Unspecified dementia without behavioral disturbance Status: Chronic (2) Constipation Code(s): K59.00 - Constipation, unspecified Status: Acute (3) Fecal impaction in rectum Code(s): K56.41 - Fecal impaction Status: Acute - Plan 58-year-old Male with PMHx of Parkinson's disease, Dementia, Neuropathy and HTN presents to the emergency department for evaluation of persistent diarrhea likely secondary to fecal impaction. Per CT of the abdomen/pelvis abundant stool throughout with rectal fecal impaction. Patient needs alternate method of feeding because he has severe dysphagia due to his underlying parkinsonism/ dementia. Feeding tube has been placed but he is not able to get to goal yet. Once he is at goal, he can be discharged home with home health. His mother is the manager product support. 1. Severe dysphasia/failure to thrive/severe protein calorie malnutrition/ diarrhea Likely Secondary to Fecal impaction CT of the abdomen/pelvis shows a colon with abundant stool throughout with rectal fecal impaction Gastroenterology following. Constipation resolving. He has been having normal bowel movements. The patient's manager product support/mother requested PEG tube but she held off until she can make sure the insurance company can provide pump and feeding tube supplies at home. Extensive discussion with the patient's mother. [employer] finally approved pump. - 04/19: PEG placed. -Tube feeding started per dietitian recommendations. Unfortunately he had residuals once he gets to 35 cc/h. - Will obtain KUB. He may have an ileus since he has not been eating for a while. - GI follow up appreciate. 2. Hypertension Blood pressure acceptable Continue Vasotec IV PRN Cont. to monitor 3. Dementia/Parkinson's disease/Anxiety/Insomnia Continue home medications, Sinemet, Aricept, Isac, Oxybutynin, Mestinon, Zoloft , and Temazepam Already has HH in place daily per mother 4. Hypokalemia, resolved Code Status: full Discussed Condition With: patient, mother, senior project accountant Planning: Can discharge home with home health once the patient can tolerate tube feeding at goal. Appreciate GI follow-up. Obtain KUB. (2) Constipation Qualifiers: Constipation type: unspecified constipation type Qualified Code(s): K59.00 - Constipation, unspecified
--- NOTE | 2018-04-20 18:46 | XR ---
EXAM DATE: 04/20/2018 6:14 PM EDT AGE/SEX: 58 years / Male INDICATIONS: Constipation. CLINICAL DATA: This is the patient's initial encounter. Patient reports that signs and symptoms have been present for 2 days and indicates a pain score of 0/10. MEDICAL/SURGICAL HISTORY: . Hypertension. Dementia. Parkinson's disease. None. COMPARISON: [facility] [place], ABDOMEN 1V KUB, 04/17/2018. . FINDINGS: Gastrostomy overlies stomach. There is moderate rectal constipation. Bowel gas pattern otherwise unre markable. CONCLUSION: Moderate rectal constipation. No evidence for obstruction. Gastrostomy tube present. Electronically signed by: Jose D Zhang MD 04/20/2018 6:45 PM EDT
[2018-04-20] MEDS: Temazepam 15 MG Capsule PO SCH (21:53)
[2018-04-21] MEDS: KCL 10 mEq/D5W/NaCl 0.45% Inj 1,000 ML IV.CONT SCH (05:53)
[2018-04-21] MEDS: Sertraline 50 MG Tablet PO SCH (09:16)
[2018-04-21 09:17] LABS: Anion Gap 5 meq/L (5-15); Blood Urea Nitrogen 8 mg/dL (7-18); Calcium 8.9 mg/dL (8.5-10.1); Carbon Dioxide 29.6 meq/L (21.0-32.0); Chloride 104 meq/L (98-107); Glomerular Filtration Rate Greater Than 89 mL/min (>89); Glucose,Random 97 mg/dL (74-106); Potassium 3.8 meq/L (3.5-5.1); Sodium 139 meq/L (136-145)
[2018-04-21] MEDS: Pyridostigmine Bromide 60 MG Tablet PO SCH ×2 (09:17→21:50)
[2018-04-21] MEDS: Gabapentin 300 MG Capsule PO SCH ×3 (09:17→21:50)
--- NOTE | 2018-04-21 12:41 | P.PN ---
Subjective Interval history: awake and alert tolerating tube feedigns at 50 cc/hr- goal rate seen with olman at bedside she states he was up and walking prior to this admission- though I doubt this Physical Exam Vital signs: Vital Signs 04/20/18 16:00 04/20/18 20:00 04/21/18 00:00 Temperature 97.3 F L 97.4 F L 97.4 F L Pulse Rate 78 90 71 Respiratory Rate 16 18 18 Blood Pressure 107/70 139/94 H 140/97 H Pulse Oximetry 97 97 98 04/21/18 04:00 04/21/18 08:00 04/21/18 12:00 Temperature 98.1 F 97.6 F 97.6 F Pulse Rate 71 76 92 H Respiratory Rate 18 14 14 Blood Pressure 161/85 H 175/119 H 99/65 L Pulse Oximetry 99 98 96 Intake & Output 04/20/18 04/21/18 04/21/18 18:59 06:59 18:59 Intake Total 1000 / 1000 1000 / 1000 Balance 1000 / 1000 1000 / 1000 Intake: IV 1000 / 1000 1000 / 1000 D5W/1/2NS + KCL 10 mEq Inj 1, 1000 / 1000 1000 / 1000 000 ML @ 100 mls/hr IV.CONT . Q10H [facility] Rx#:[id number] Other: # Voids 3 Date of Last Bowel Movement 04/20/18 04/21/18 04/21/18 # Bowel Movements 1 Narrative: GENERAL: Cachectic looking male, lying in bed in no acute distress. awake and alert, some aphasia CARDIOVASCULAR: Regular rate and rhythm without murmurs, gallops, or rubs. RESPIRATORY: Breath sounds equal bilaterally. No accessory muscle use. GASTROINTESTINAL: Abdomen soft, non-tender, nondistended. PEG in place condom catheter in place NEURO/PSYCH: Awake and Alert, calm. moves all extremities to commands Results - Labs CBC & Chem 7: 04/15/18 07:20 04/21/18 08:34 Laboratory Results - last 24 hr 04/21/18 08:34 Sodium 139 Potassium 3.8 Chloride 104 Carbon Dioxide 29.6 Anion Gap 5 BUN 8 Creatinine 0.64 Estimated GFR Greater than 89 Random Glucose 97 Calcium 8.9 - Imaging Impressions Abdomen X-Ray 04/20/18 00:00 CONCLUSION: Moderate rectal constipation. No evidence for obstruction. Gastrostomy tube present. - Procedures 04/20- PEG placment Assessment and Plan - Assessment (1) Dementia Code(s): F03.90 - Unspecified dementia without behavioral disturbance Status: Chronic (2) Constipation Code(s): K59.00 - Constipation, unspecified Status: Acute (3) Fecal impaction in rectum Code(s): K56.41 - Fecal impaction Status: Acute - Plan 58-year-old Male with PMHx of Parkinson's disease, Dementia, Neuropathy and HTN presents to the emergency department for evaluation of persistent diarrhea likely secondary to fecal impaction. Per CT of the abdomen/pelvis abundant stool throughout with rectal fecal impaction. Patient needs alternate method of feeding because he has severe dysphagia due to his underlying parkinsonism/ dementia. Feeding tube has been placed but he is not able to get to goal yet. Once he is at goal, he can be discharged home with home health. His mother is the rand cementer. 1. Severe dysphasia/failure to thrive/severe protein calorie malnutrition/ diarrhea Likely Secondary to Fecal impaction CT of the abdomen/pelvis shows a colon with abundant stool throughout with rectal fecal impaction Gastroenterology following. Constipation resolving. He has been having normal bowel movements. The patient's rand cementer/mother requested PEG tube but she held off until she can make sure the insurance company can provide pump and feeding tube supplies at home. Extensive discussion with the patient's mother. Insurance [employer] finally approved pump. - 04/19: PEG placed. -Tube feeding started -tolerating goal rate of 50 cc/hr - GI follow up appreciate. 2. Hypertension Blood pressure acceptable Continue Vasotec IV PRN Cont. to monitor 3. Dementia/Parkinson's disease/Anxiety/Insomnia Continue home medications, Sinemet, Aricept, Isac, Oxybutynin, Mestinon, Zoloft , and Temazepam Already has HH in place daily per mother PT daily 4. Hypokalemia, resolved Code Status: full Discussed Condition With: patient, mother, product development consultant Planning: Can discharge home with home health once the patient can tolerate tube feeding at goal. Appreciate GI follow-up. Obtain KUB. (2) Constipation Qualifiers: Constipation type: unspecified constipation type Qualified Code(s): K59.00 - Constipation, unspecified
[2018-04-21] MEDS: Temazepam 15 MG Capsule PO SCH (21:49)
[2018-04-22] MEDS: Pyridostigmine Bromide 60 MG Tablet PO SCH ×2 (09:30→23:22)
[2018-04-22] MEDS: Gabapentin 300 MG Capsule PO SCH ×3 (09:30→23:22)
[2018-04-22] MEDS: Sertraline 50 MG Tablet PO SCH (09:31)
--- NOTE | 2018-04-22 14:31 | P.PN ---
Subjective Interval history: tolerating tube feedings no complains Physical Exam Vital signs: Vital Signs 04/21/18 16:00 04/21/18 20:00 04/22/18 00:00 Temperature 98.0 F 98.0 F 98.9 F Pulse Rate 91 H 88 83 Respiratory Rate 18 Blood Pressure 130/84 131/84 113/78 Pulse Oximetry 99 98 95 04/22/18 04:00 04/22/18 08:00 04/22/18 12:00 Temperature 98.0 F 97.1 F L 98.1 F Pulse Rate 70 81 84 Respiratory Rate 16 Blood Pressure 123/78 145/94 H 112/73 Pulse Oximetry 98 98 97 Intake & Output 04/21/18 04/22/18 04/22/18 18:59 06:59 18:59 Intake Total 1700 / 1700 750 / 750 Output Total 1200 / 1200 100 / 100 500 / 500 Balance 500 / 500 -100 / -100 250 / 250 Weight 56.7 kg Intake: IV 1000 / 1000 D5W/1/2NS + KCL 10 mEq Inj 1, 1000 / 1000 000 ML @ 100 mls/hr IV.CONT . Q10H [facility] Rx#:[id number] Tube Feeding 750 / 750 Other 700 / 700 Output: Urine 1200 / 1200 100 / 100 500 / 500 Other: Other Intake Source Saline Solution # Incontinent Voids 2 Date of Last Bowel Movement 04/21/18 04/21/18 04/21/18 # Bowel Movements 1 Narrative: GENERAL: Cachectic looking male, lying in bed in no acute distress. awake and alert, some aphasia CARDIOVASCULAR: Regular rate and rhythm without murmurs, gallops, or rubs. RESPIRATORY: Breath sounds equal bilaterally. No accessory muscle use. GASTROINTESTINAL: Abdomen soft, non-tender, nondistended. PEG in place condom catheter in place NEURO/PSYCH: Awake and Alert, calm. moves all extremities to commands Results - Labs CBC & Chem 7: 04/15/18 07:20 04/21/18 08:34 - Procedures 04/20- PEG placment Assessment and Plan - Assessment (1) Dementia Code(s): F03.90 - Unspecified dementia without behavioral disturbance Status: Chronic (2) Constipation Code(s): K59.00 - Constipation, unspecified Status: Acute (3) Fecal impaction in rectum Code(s): K56.41 - Fecal impaction Status: Acute - Plan 58-year-old Male with PMHx of Parkinson's disease, Dementia, Neuropathy and HTN presents to the emergency department for evaluation of persistent diarrhea likely secondary to fecal impaction. Per CT of the abdomen/pelvis abundant stool throughout with rectal fecal impaction. Patient needs alternate method of feeding because he has severe dysphagia due to his underlying parkinsonism/ dementia. Feeding tube has been placed but he is not able to get to goal yet. Once he is at goal, he can be discharged home with home health. His mother is the security technician. 1. Severe dysphasia/failure to thrive/severe protein calorie malnutrition/ diarrhea Likely Secondary to Fecal impaction CT of the abdomen/pelvis shows a colon with abundant stool throughout with rectal fecal impaction Gastroenterology following. Constipation resolving. He has been having normal bowel movements. The patient's security technician/mother requested PEG tube but she held off until she can make sure the insurance company can provide pump and feeding tube supplies at home. Extensive discussion with the patient's mother. [employer] finally approved pump. - 04/19: PEG placed. -Tube feeding started -tolerating goal rate of 50 cc/hr - GI follow up appreciate. 2. Hypertension Blood pressure acceptable Continue Vasotec IV PRN Cont. to monitor 3. Dementia/Parkinson's disease/Anxiety/Insomnia Continue home medications, Sinemet, Aricept, Isac, Oxybutynin, Mestinon, Zoloft , and Temazepam Already has HH in place daily per mother PT daily 4. Hypokalemia, resolved Code Status: full Discussed Condition With: patient, mother, cost estimating clerk Planning: Can discharge home with home health once the patient can tolerate tube feeding at goal. PCP- Dr. snow (2) Constipation Qualifiers: Constipation type: unspecified constipation type Qualified Code(s): K59.00 - Constipation, unspecified
[2018-04-22] MEDS: Temazepam 15 MG Capsule PO SCH (23:22)
[2018-04-23] MEDS: Gabapentin 300 MG Capsule PO SCH ×3 (10:02→20:38)
[2018-04-23] MEDS: Sertraline 50 MG Tablet PO SCH (10:02)
[2018-04-23] MEDS: Pyridostigmine Bromide 60 MG Tablet PO SCH ×2 (10:02→20:39)
--- NOTE | 2018-04-23 13:14 | P.PN ---
Subjective Interval history: seen with Mom tolerating tube feedings no complains appears in no distress Physical Exam Vital signs: Vital Signs 04/22/18 16:00 04/22/18 20:00 04/23/18 00:00 Temperature 97.9 F 99.0 F 98.5 F Pulse Rate 90 95 H 97 H Respiratory Rate 18 Blood Pressure 107/69 132/87 130/84 Pulse Oximetry 96 96 98 04/23/18 04:00 04/23/18 07:54 04/23/18 12:00 Temperature 98.6 F 98.2 F 98.0 F Pulse Rate 90 73 84 Respiratory Rate 18 Blood Pressure 128/77 118/76 139/84 Pulse Oximetry 96 97 97 Intake & Output 04/22/18 04/23/18 04/23/18 18:59 06:59 18:59 Intake Total 1230 / 1230 Output Total 500 / 500 500 / 500 Balance 730 / 730 -500 / -500 Weight 51.8 kg Intake: Oral 480 / 480 Tube Feeding 750 / 750 Output: Urine 500 / 500 500 / 500 Other: # Incontinent Voids 2 Date of Last Bowel Movement 04/21/18 04/21/18 04/21/18 # Incontinent Bowel Movements 1 Narrative: GENERAL: in no acute distress. awake and alert, some aphasia CARDIOVASCULAR: Regular rate and rhythm without murmurs, gallops, or rubs. RESPIRATORY: Breath sounds equal bilaterally. No accessory muscle use. GASTROINTESTINAL: Abdomen soft, non-tender, nondistended. PEG in place condom catheter in place NEURO/PSYCH: Awake and Alert, calm. moves all extremities to commands Results - Labs CBC & Chem 7: 04/15/18 07:20 04/21/18 08:34 - Procedures 04/20- PEG placment Assessment and Plan - Assessment (1) Dementia Code(s): F03.90 - Unspecified dementia without behavioral disturbance Status: Chronic (2) Constipation Code(s): K59.00 - Constipation, unspecified Status: Acute (3) Fecal impaction in rectum Code(s): K56.41 - Fecal impaction Status: Acute - Plan 58-year-old Male with PMHx of Parkinson's disease, Dementia, Neuropathy and HTN presents to the emergency department for evaluation of persistent diarrhea likely secondary to fecal impaction. Per CT of the abdomen/pelvis abundant stool throughout with rectal fecal impaction. Patient needs alternate method of feeding because he has severe dysphagia due to his underlying parkinsonism/ dementia. Feeding tube has been placed but he is not able to get to goal yet. Once he is at goal, he can be discharged home with home health. His mother is the screen tacker. 1. Severe dysphasia/failure to thrive/severe protein calorie malnutrition/ diarrhea Likely Secondary to Fecal impaction CT of the abdomen/pelvis shows a colon with abundant stool throughout with rectal fecal impaction Gastroenterology following. Constipation resolving. He has been having normal bowel movements. The patient's screen tacker/mother requested PEG tube but she held off until she can make sure the insurance company can provide pump and feeding tube supplies at home. Extensive discussion with the patient's mother. Insurance company finally approved pump. - 04/19: PEG placed. -Tube feeding started -tolerating goal rate of 50 cc/hr - GI follow up appreciate. 2. Hypertension Blood pressure acceptable Continue Vasotec IV PRN Cont. to monitor 3. Dementia/Parkinson's disease/Anxiety/Insomnia Continue home medications, Sinemet, Aricept, Isac, Oxybutynin, Mestinon, Zoloft , and Temazepam Already has HH in place daily per mother PT daily 4. Hypokalemia, resolved Code Status: full Discussed Condition With: patient, mother, gas utility worker Planning: Can discharge home with home health - I think we are waiting for pump PCP- Dr. snow (2) Constipation Qualifiers: Constipation type: unspecified constipation type Qualified Code(s): K59.00 - Constipation, unspecified
[2018-04-23] MEDS: Temazepam 15 MG Capsule PO SCH (20:38)
[2018-04-23] MEDS: Acetaminophen 325 MG Tablet PO PRN (20:38)
[2018-04-24] MEDS: Sertraline 50 MG Tablet PO SCH (08:18)
[2018-04-24] MEDS: Gabapentin 300 MG Capsule PO SCH ×3 (08:18→21:41)
[2018-04-24] MEDS: Pyridostigmine Bromide 60 MG Tablet PO SCH ×2 (08:18→21:41)
--- NOTE | 2018-04-24 12:45 | P.PN ---
Subjective Interval history: no complains tolerating TF at 50 cc/hr Physical Exam Vital signs: Vital Signs 04/23/18 16:00 04/23/18 20:00 04/23/18 22:14 Temperature 97.5 F L 98.6 F Pulse Rate 82 89 Respiratory Rate 16 Blood Pressure 128/74 120/89 Pulse Oximetry 98 96 04/24/18 00:00 04/24/18 04:00 04/24/18 08:00 Temperature 99.0 F 98.9 F 98.6 F Pulse Rate 70 77 71 Respiratory Rate Blood Pressure 115/77 130/66 148/93 H Pulse Oximetry 97 96 98 Intake & Output 04/23/18 04/24/18 04/24/18 18:59 06:59 18:59 Intake Total 700 / 700 1000 / 1000 Output Total 600 / 600 500 / 500 650 / 650 Balance 100 / 100 500 / 500 -650 / -650 Weight 51.7 kg Intake: Tube Feeding 400 / 400 850 / 850 Water Bolus Amount 300 / 300 150 / 150 Output: Urine 600 / 600 500 / 500 650 / 650 Other: Date of Last Bowel Movement 04/21/18 04/22/18 # Bowel Movements 1 Narrative: GENERAL: in no acute distress. awake and alert, some aphasia CARDIOVASCULAR: Regular rate and rhythm without murmurs, gallops, or rubs. RESPIRATORY: Breath sounds equal bilaterally. No accessory muscle use. GASTROINTESTINAL: Abdomen soft, non-tender, nondistended. PEG in place condom catheter in place NEURO/PSYCH: Awake and Alert, calm. moves all extremities to commands Results - Labs CBC & Chem 7: 04/15/18 07:20 04/21/18 08:34 - Procedures 04/20- PEG placment Assessment and Plan - Assessment (1) Dementia Code(s): F03.90 - Unspecified dementia without behavioral disturbance Status: Chronic (2) Constipation Code(s): K59.00 - Constipation, unspecified Status: Acute (3) Fecal impaction in rectum Code(s): K56.41 - Fecal impaction Status: Acute - Plan 58-year-old Male with PMHx of Parkinson's disease, Dementia, Neuropathy and HTN presents to the emergency department for evaluation of persistent diarrhea likely secondary to fecal impaction. Per CT of the abdomen/pelvis abundant stool throughout with rectal fecal impaction. Patient needs alternate method of feeding because he has severe dysphagia due to his underlying parkinsonism/ dementia. Feeding tube has been placed but he is not able to get to goal yet. Once he is at goal, he can be discharged home with home health. His mother is the retail client solutions consultant. 1. Severe dysphasia/failure to thrive/severe protein calorie malnutrition/ diarrhea Likely Secondary to Fecal impaction CT of the abdomen/pelvis shows a colon with abundant stool throughout with rectal fecal impaction Gastroenterology following. Constipation resolving. He has been having normal bowel movements. The patient's retail client solutions consultant/mother requested PEG tube but she held off until she can make sure the insurance company can provide pump and feeding tube supplies at home. Extensive discussion with the patient's mother. Insurance company finally approved pump. - 04/19: PEG placed. -Tube feeding started -tolerating goal rate of 50 cc/hr - GI follow up appreciate. 2. Hypertension Blood pressure acceptable Continue Vasotec IV PRN Cont. to monitor 3. Dementia/Parkinson's disease/Anxiety/Insomnia Continue home medications, Sinemet, Aricept, Isac, Oxybutynin, Mestinon, Zoloft , and Temazepam Already has HH in place daily per mother PT daily 4. 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 snow (2) Constipation Qualifiers: Constipation type: unspecified constipation type Qualified Code(s): K59.00 - Constipation, unspecified
[2018-04-24] MEDS: Temazepam 15 MG Capsule PO SCH (21:40)
[2018-04-24] MEDS: Acetaminophen 325 MG Tablet PO PRN (21:41)
[2018-04-25] MEDS: Sertraline 50 MG Tablet PO SCH (08:18)
[2018-04-25] MEDS: Pyridostigmine Bromide 60 MG Tablet PO SCH (08:20)
--- NOTE | 2018-04-25 08:27 | P.PN ---
Subjective Interval history: awake and alert no acute events overnight toelrating tube feedings Physical Exam Vital signs: Vital Signs 04/24/18 12:00 04/24/18 16:00 04/24/18 20:00 Temperature 98 F 97.2 F L 97.4 F L Pulse Rate 82 87 82 Respiratory Rate 18 18 18 Blood Pressure 137/90 143/82 H 148/96 H Pulse Oximetry 98 97 98 04/25/18 00:00 04/25/18 04:00 Temperature 97.7 F 97.6 F Pulse Rate 76 68 Respiratory Rate 18 18 Blood Pressure 100/73 117/79 Pulse Oximetry 98 97 Intake & Output 04/24/18 04/25/18 04/25/18 19:59 06:59 18:59 Intake Total Output Total Balance Weight Intake: Tube Feeding Water Bolus Amount Output: Urine Other: # Bowel Movements Narrative: in no acute distress. awake and alert, some aphasia Regular rate and rhythm without murmurs, gallops, or rubs. Breath sounds equal bilaterally. No accessory muscle use. Abdomen soft, non-tender, nondistended. PEG in place penile shaft-s ome erythema from irritation from the condom catheter NEURO/PSYCH: Awake and Alert, calm. moves all extremities to commands Results - Labs CBC & Chem 7: 04/15/18 07:20 04/21/18 08:34 - Procedures 04/20- PEG placment Assessment and Plan - Assessment (1) Dementia Code(s): F03.90 - Unspecified dementia without behavioral disturbance Status: Chronic (2) Constipation Code(s): K59.00 - Constipation, unspecified Status: Acute (3) Fecal impaction in rectum Code(s): K56.41 - Fecal impaction Status: Acute - Plan 58-year-old Male with PMHx of Parkinson's disease, Dementia, Neuropathy and HTN presents to the emergency department for evaluation of persistent diarrhea likely secondary to fecal impaction. Per CT of the abdomen/pelvis abundant stool throughout with rectal fecal impaction. Patient needs alternate method of feeding because he has severe dysphagia due to his underlying parkinsonism/ dementia. Feeding tube has been placed but he is not able to get to goal yet. Once he is at goal, he can be discharged home with home health. His mother is the mobile device engineer. 1. Severe dysphasia/failure to thrive/severe protein calorie malnutrition/ diarrhea Likely Secondary to Fecal impaction CT of the abdomen/pelvis shows a colon with abundant stool throughout with rectal fecal impaction Gastroenterology following. Constipation resolving. He has been having normal bowel movements. The patient's mobile device engineer/mother requested PEG tube but she held off until she can make sure the insurance company can provide pump and feeding tube supplies at home. Extensive discussion with the patient's mother. Insurance company finally approved pump. - 04/19: PEG placed. -Tube feeding started -tolerating goal rate of 50 cc/hr tolerating well - Pump will be delivered to his home today 2. Hypertension- stable Blood pressure acceptable Cont. to monitor 3. Dementia/Parkinson's disease- total assist /Anxiety/Insomnia Continue home medications, Sinemet, Aricept, Isac, Oxybutynin, Mestinon, Zoloft , and Temazepam Already has HH in place daily per mother PT daily 4. 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 snow- FF up in 3-5 days (2) Constipation Qualifiers: Constipation type: unspecified constipation type Qualified Code(s): K59.00 - Constipation, unspecified
[2018-04-25] MEDS: Gabapentin 300 MG Capsule PO SCH ×2 (08:32→12:52)
[2018-04-25 08:39] VITALS: O2SAT 98
--- NOTE | 2018-04-25 08:39 | P.DS ---
Date of admission: 04/13/18 18:45 Primary care physician: UNKNOWN Attending physician on discharge: Rashad Churchill Anticipated date of discharge: 04/25/18 Brief History from admission: 58-year-old male with a past medical history significant for Parkinson's disease , dementia, neuropathy and hypertension presents to the emergency department for evaluation of persistent diarrhea. The patient was seen on 04/07/18 where he was admitted for an incidental finding of pneumonia on CT. His mother, who is his primary caregiver, reports that since discharge the patient's diarrhea has not improved. She states he has felt warm to the touch several times but has not actually taken his temperature. Patient is sitting in bed comfortably at this time. CT of the abdomen/pelvis shows abundant stool throughout with rectal fecal impaction. The patient denies any chest pain or shortness of breath. He denies abdominal pain. No lateralizing signs/symptoms. Patient update on day of discharge: awake and alert, no acute distress, made eye contact tolerating tube feedings at 50 cc/hr DS: Diagnosis - Discharge Diagnosis (1) Dementia Status: Chronic (2) Constipation Status: Acute (3) Fecal impaction in rectum Status: Acute DS: Summary Hospital Course: 58-year-old Male with PMHx of Parkinson's disease, Dementia, Neuropathy and HTN presents to the emergency department for evaluation of persistent diarrhea likely secondary to fecal impaction. Per CT of the abdomen/pelvis abundant stool throughout with rectal fecal impaction. Patient needs alternate method of feeding because he has severe dysphagia due to his underlying parkinsonism/ dementia. Feeding tube has been placed but he is not able to get to goal yet. Once he is at goal, he can be discharged home with home health. His mother is the sfdc architect. 1. Severe dysphasia/failure to thrive/severe protein calorie malnutrition/ diarrhea Likely Secondary to Fecal impaction CT of the abdomen/pelvis shows a colon with abundant stool throughout with rectal fecal impaction Gastroenterology following. Constipation resolving. He has been having normal bowel movements. The patient's sfdc architect/mother requested PEG tube but she held off until she can make sure the [employer] can provide pump and feeding tube supplies at home. Extensive discussion with the patient's mother. Insurance company finally approved pump. - 04/19: PEG placed. -Tube feeding started -tolerating goal rate of 50 cc/hr tolerating well - Pump will be delivered to his home today 2. Hypertension- stable Blood pressure acceptable Cont. to monitor 3. Dementia/Parkinson's disease- total assist /Anxiety/Insomnia Continue home medications, Sinemet, Aricept, Isac, Oxybutynin, Mestinon, Zoloft , and Temazepam Already has HH in place daily per mother PT daily 4. Hypokalemia, resolved\ 5. 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 snow- FF up in 3-5 days - Time Spent with Patient Total time spent providing and/or coordinating discharge services: Greater than 30 minutes - Quality: VTE Deep Vein Thrombosis/Pulmonary Embolism Present on Admission: No Exam Vital signs: Vital Signs 04/24/18 12:00 04/24/18 16:00 04/24/18 20:00 Temperature 98 F 97.2 F L 97.4 F L Pulse Rate 82 87 82 Respiratory Rate 18 18 18 Blood Pressure 137/90 143/82 H 148/96 H Pulse Oximetry 98 97 98 04/25/18 00:00 04/25/18 04:00 Temperature 97.7 F 97.6 F Pulse Rate 76 68 Respiratory Rate 18 18 Blood Pressure 100/73 117/79 Pulse Oximetry 98 97 Intake & Output 04/24/18 04/25/18 04/25/18 19:59 06:59 18:59 Intake Total Output Total Balance Weight Intake: Tube Feeding Water Bolus Amount Output: Urine Other: # Bowel Movements Narrative: in no acute distress. awake and alert, some aphasia Regular rate and rhythm without murmurs, gallops, or rubs. Breath sounds equal bilaterally. No accessory muscle use. Abdomen soft, non-tender, nondistended. PEG in place penile shaft-s ome erythema from irritation from the condom catheter NEURO/PSYCH: Awake and Alert, calm. moves all extremities to commands Results Procedures completed during hospitalization: 04/20- PEG placment - Impressions ITS Impressions Chest X-Ray 04/13/18 15:20 CONCLUSION: No acute cardiopulmonary disease. Abdomen/Pelvis CT 04/13/18 16:25 CONCLUSION: Rectal fecal impaction. Abdomen X-Ray 04/20/18 00:00 CONCLUSION: Moderate rectal constipation. No evidence for obstruction. Gastrostomy tube present. Discharge Plan - Discharge Disposition Patient Disposition: /Home Health Service - Discharge Condition Condition: Stable - Discharge Order Discharge Orders: Discharge Order (Routine); Ordered 04/25/18 Ordered By: Rashad Churchill - Discharge Details Anticipated Discharge Date: 04/25/18 - Physicians Team Primary Care Provider: UNKNOWN, Attending Provider: Rashad Churchill Other Providers: Fran Perry MD ; [employer],Insurance
[2018-04-25 12:34] VITALS: BP 146/87; PULSE 83; RESP 18; TEMP 97.5
== END 2018-04-25 14:43 | disposition home health service (06) ==
LOC: NEPC 12:22 → NEDA 12:22 → N05 20:20
PROVIDERS: ADMIT Internal Medicine; ATTEND Internal Medicine